=== PATIENT | female | born 1950 | race American Indian/Alaskan Native ===

== ENCOUNTER → 2017-12-03 | Day surgery (SDC) | payer MEDICARE ==
[~2017-12-03] MED LIST: HEPARIN-NS 5,000 UNITS/500 ML 10,000 UNIT/1,000 ML BAG IV ONE; HYDROmorphone 0.5 mg/0.5 ml ISec IVP PRN; Midazolam 2 MG/2 ML VIAL ONE; Neostigmine Methylsulfate 3mg/3ml Syringe IV ONE; Oxycodone/Acetaminophen 5/325 mg Tab PO PRN; Phenylephrine 10 mg/ml Inj ONE; Propofol 10 mg/ml Inj (20 ML) ONE; Succinylcholine Chloride 20 mg/ml Syr (5 ml) IV ONE; ceFAZolin IV 1 gm in Dextrose 2 GM/100 ML BAG IVPB ONE
[2017-12-03 10:17] LABS: CALCIUM 9.7 mg/dl (8.6-10.4)
--- NOTE | 2017-12-03 13:29 | RAD ---
Date of service: 12/03/2017 PROCEDURE: Intraoperative Fluoroscopy. HISTORY: RENAL FAILURE FINDINGS: Fluoroscopic assistance was provided. Fluoroscopy time = 11.7 sec. Radiation dose = 0.80122 mGy-cm. Please refer to the operative report from ROSSY Jerry.
--- NOTE | 2017-12-03 13:43 | PCM.SURG1 ---
Surgeon's Initial Post Op Note - Surgeon's Notes Surgeon: Joseph Corona MD Insulation Board Calender Operator: Brenda Velarde, PGY-2; Marquez OMS-3 Type of Anesthesia: General Endo Anesthesia Administered By: Dr. Driver Pre-Operative Diagnosis: ESRD requiring HD Operative Findings: See op report Post-Operative Diagnosis: ESRD requiring HD Operation Performed: RIJ permacath replacement, LUE AVF creation Specimen/Specimens Removed: Permacath Estimated Blood Loss: EBL {In ML}: 35 Blood Products Given: N/A Drains Used: No Drains Post-Op Condition: Good Date of Surgery/Procedure: 12/03/17 Time of Surgery/Procedure: 13:42
--- NOTE | 2017-12-03 14:03 | RAD ---
Date of service: 12/03/2017 HISTORY: post RIJ permacath replacement in pacu COMPARISON: 11/28/2017 FINDINGS: LUNGS: No active pulmonary disease. PLEURA: No significant pleural effusion identified, no pneumothorax apparent. CARDIOVASCULAR: Apparent cardiomegaly likely artifact due to portable technique. No congestive change. Tunneled right central venous dialysis catheter. OSSEOUS STRUCTURES: No significant abnormalities. VISUALIZED UPPER ABDOMEN: Normal. OTHER FINDINGS: None. IMPRESSION: No active disease.
[2017-12-03 15:11] VITALS: BP 110/70; PULSE 88; RESP 20; TEMP 97.9; O2SAT 95
--- NOTE | 2017-12-04 00:46 | OP ---
PROCEDURE DATE: 12/03/2017 PREOPERATIVE DIAGNOSIS: Renal failure. POSTOPERATIVE DIAGNOSIS: Renal failure. OPERATION CARRIED OUT: 1. Permacath right jugular vein with fluoroscopy. 2. Brachiocephalic fistula left elbow. SURGEON: Joseph Corona Jr., MD. CAFETERIA OPERATOR: Dr. Velarde. ANESTHESIOLOGIST: Dr. Driver. INDICATIONS: The patient is a 67-year-old woman with renal failure, presently dialyzed by means of right jugular vein catheter which is not working properly. OPERATIVE FINDINGS: 1. The previous catheter was replaced. It was filled with clot. 2. A fistula was created between the brachial artery and the cephalic vein at the elbow. It should be noted that this was actually a branch of the radial artery, as the main radial artery was somewhat deeper had been dissected out. 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 After this have been carried out successfully, then created an end-to-side fistula using loupe magnification and heparin anticoagulation. Blood loss for the both procedures were approximately 20 mL. The catheter was a tunneled catheter, it was secured to the skin and tunneled, originating on the right chest wall and through jugular vein and terminating in the superior vena cava. Joseph Corona Jr., MD cc: Sea Quintero MD.
== END | disposition home or self-care (01) ==
LOC: C.SDS 09:02
PROVIDERS: ATTEND Surgery Vascular Surgery
DX: I12.0 Hypertensive chronic kidney disease with stage 5 chronic kidney disease or end stage renal disease (principal); N18.6 End stage renal disease; E11.22 Type 2 diabetes mellitus with diabetic chronic kidney disease
CPT/HCPCS: 36415; 36558; 36821; 71045; 77001; 80048; J0690; J1644; J2001; J2250; J2370; J2704; J2710; J3010

== ENCOUNTER 2017-12-05 08:33 | Inpatient (IN) | payer MEDICARE ==
[2017-12-05] MEDS ORDERED: Cefepime 1 GM in Sodium Chloride 0.9% 50 ML IVPB ONE (09:14)
[2017-12-05] MEDS ORDERED: Morphine 4 MG/ML VIAL IV STA ×2 (09:37→10:58)
[2017-12-05 09:39] LABS: BASO % 0.3 % (0.0-2.0); EOS % 0.2 % (0.0-4.0); HEMOGLOBIN 9.7 g/dL (11.0-16.0); LYMPH # 1.8 K/uL (1.0-4.3); LYMPH % 12.9 % (20.0-40.0); MEAN CORPUSCULAR HEMOGLOBIN 27.4 pg (27.0-31.0); MEAN CORPUSCULAR HGB CONC 31.9 g/dL (33.0-37.0); MEAN PLATELET VOLUME 9.8 fL (7.2-11.7); MONO # 1.9 K/uL (0.0-0.8); MONO % 13.4 % (0.0-10.0); NEUT # 10.3 K/uL (1.8-7.0); NEUT % 73.2 % (50.0-75.0); RBC 3.52 Mil/uL (3.80-5.20); RED CELL DISTRIBUTION WIDTH 19.8 % (11.5-14.5)
[2017-12-05 09:40] LABS: VENOUS BLOOD GAS BASE EXCESS 6.6 mmol/L (0.0-2.0); VENOUS BLOOD GAS PCO2 47 mmHg (40-60); VENOUS BLOOD GAS PO2 29 mm/Hg (30-55); VENOUS BLOOD PH 7.44 (7.32-7.43)
[2017-12-05 09:46] LABS: MEAN CELL VOLUME 86.2 fL (81.0-99.0); WHITE BLOOD COUNT 14.1 K/uL (4.8-10.8)
[2017-12-05 09:48] LABS: INR 1.1; PROTHROMBIN TIME 12.5 SECONDS (9.7-12.2)
--- NOTE | 2017-12-05 09:54 | RAD ---
Chest x-ray single frontal view HISTORY: Shortness of breath. Comparison: 11/28/2017 Findings: Venous congestion. Patchy bibasilar airspace opacities. Small left and trace right pleural effusion. Right central venous catheter tip extending into the right atrium. Cardiomegaly. Enlarged ectatic aorta. Degenerative changes in the spine and shoulders. Impression: Venous congestion. Patchy bibasilar airspace opacities. Small left and trace right pleural effusion. Right central venous catheter tip extending into the right atrium. Cardiomegaly. Enlarged ectatic aorta. Degenerative changes in the spine and shoulders.
[2017-12-05 10:00] LABS: ALB/GLOB RATIO 1.1 (1.0-2.1); ALBUMIN 3.8 g/dL (3.5-5.0); CALCIUM 9.7 mg/dl (8.6-10.4)
--- NOTE | 2017-12-05 10:02 | C.PDOC ---
History Of Present Illness 67 y/o female, with PMHx of ESRD on hemodialysis (Tues, Th, Sat), presents to ED for evaluation of shortness of breath, fever, and right side chest wall pain. Last dialysis was yesterday. Denies cough, nausea, or vomiting. Time Seen by Provider: 12/05/17 08:51 Chief Complaint (Nursing): Shortness Of Breath History Per: Patient History/Exam Limitations: no limitations Past Medical History Reviewed: Historical Data, Nursing Documentation, Vital Signs Vital Signs: Last Vital Signs Temp 101.5 F H 12/05/17 08:56 Pulse 127 H 12/05/17 08:46 Resp 24 12/05/17 08:46 BP 147/80 12/05/17 08:46 Pulse Ox 97 12/05/17 08:46 - Medical History PMH: Arthritis, HTN, Hypercholesterolemia, End Stage Renal Disease, Chronic Kidney Disease Family History: States: Unknown Family Hx - Social History Hx Alcohol Use: No Hx Substance Use: No - Immunization History Hx Tetanus Toxoid Vaccination: Yes Hx Influenza Vaccination: Yes Hx Pneumococcal Vaccination: No Review Of Systems Except As Marked, All Systems Reviewed And Found Negative. Constitutional: Positive for: Fever Cardiovascular: Positive for: Chest Pain (chest wall). Negative for: Palpitations, Light Headedness Respiratory: Positive for: Shortness of Breath. Negative for: Cough, Sputum Gastrointestinal: Negative for: Nausea, Vomiting, Abdominal Pain Physical Exam - Physical Exam Appears: Non-toxic, No Acute Distress Skin: Normal Color, Warm, Dry Head: Atraumatic, Normacephalic Eye(s): bilateral: Normal Inspection Oral Mucosa: Moist Neck: Normal ROM, Supple Chest: Symmetrical, No Tenderness, Other (catheter to right anterior chest wall) Cardiovascular: Rhythm Regular, No Murmur Respiratory: No Accessory Muscle Use, Rales (bilateral bases), No Rhonchi, No Wheezing Gastrointestinal/Abdominal: Soft, No Tenderness Extremity: Normal ROM, Other (Left arm AV fistula) Neurological/Psych: Oriented x3, Normal Speech ED Course And Treatment - Laboratory Results Result Diagrams: 12/05/17 09:29 12/05/17 09:29 ECG: Interpreted By Me, Viewed By Me ECG Rhythm: Sinus Tachycardia Interpretation Of ECG: Normal intervals. Left axis deviation. Poor R wave progression. No ST/T wave abnormality. Rate From EC (bpm) O2 Sat by Pulse Oximetry: 97 (RA) Pulse Ox Interpretation: Normal Critical Care Time - Critical Care Note Total Time (in mins): 60 Documented critical care: time excludes all time spent performing seperately billable procedures. Medical Decision Making Medical Decision Making: Plan: Blood work EKG CXR Maxipime Vancomycin Morphine Case discussed Dr. Corona who agrees upon telemetry admission for shortness of breath and fever. Dr. Daly for consult Spoke with Dr. Hood who will evaluate pt at [facility]. Dr. Hood placed orders for patient. Disposition Discussed With : Manuel Fuentes Doctor Will See Patient In The: Hospital Counseled Patient/Family Regarding: Studies Performed, Diagnosis - Disposition Disposition: HOSPITALIZED Disposition Time: 10:02 Condition: FAIR - Clinical Impression Clinical Impression: SOB (shortness of breath), Fever - Scribe Statement The provider has reviewed the documentation as recorded by the Scribe KP All medical record entries made by the Scribe were at my direction and personally dictated by me. I have reviewed the chart and agree that the record accurately reflects my personal performance of the history, physical exam, medical decision making, and the department course for this patient. I have also personally directed, reviewed, and agree with the discharge instructions and disposition.
[2017-12-05 10:07] LABS: TROPONIN I 0.023 ng/mL (0.00-0.120)
[2017-12-05] MEDS ORDERED: Vancomycin 1 GM 1 GM/250 ML BAG IVPB ONE (10:40)
[2017-12-05] MEDS ORDERED: Glucagon Recombinant 1 mg Inj IM ONE (11:30)
[2017-12-05] MEDS ORDERED: Dextrose 50% SYRINGE Inj (50 ml) IV PRN (11:30)
--- NOTE | 2017-12-05 13:05 | CP.PCM.CON ---
History of Present Illness - History of Present Illness History of Present Illness: 67 y/o female, with PMHx of ESRD on hemodialysis (, , Fri), presents to ED for evaluation of shortness of breath, fever, and right side chest wall pain. Last dialysis was yesterday. Denies cough, nausea, or vomiting. CT chest shows bilat lower lobe infiltrates, Has right sided Tessio for HD and recent left arm AV Fistula wounds on lower extremities noted - Medical History PMH: Arthritis, HTN, Hypercholesterolemia, End Stage Renal Disease, Chronic Kidney Disease Family History: States: Unknown Family Hx Review of Systems - Review of Systems All systems: reviewed and no additional remarkable complaints except - Constitutional Constitutional: As Per HPI - EENT Eyes: absent: As Per HPI, Blind Spots, Blurred Vision, Change in Vision, Decreased Night Vision, Diplopia, Discharge, Dry Eye, Exophthalmos, Floaters, Irritation, Itchy Eyes, Loss of Peripheral Vision, Pain, Photophobia, Requires Corrective Lenses, Sees Flashes, Spots in Vision, Tunnel Vision, Other Visual Disturbances, Loss of Vision, Other Ears: absent: As Per HPI, Decreased Hearing, Ear Discharge, Ear Pain, Tinnitus, Abnormal Hearing, Disequilibrium, Dizziness, Other Nose/Mouth/Throat: absent: As Per HPI, Epistaxis, Nasal Congestion, Nasal Discharge, Nasal Obstruction, Nasal Trauma, Nose Pain, Post Nasal Drip, Sinus Pain, Sinus Pressure, Bleeding Gums, Change in Voice, Dental Pain, Dry Mouth, Dysphagia, Halitosis, Hoarsness, Lip Swelling, Mouth Lesions, Mouth Pain, Odynophagia, Sore Throat, Throat Swelling, Tongue Swelling, Facial Pain, Neck Pain, Neck Mass, Other - Breasts Breasts: absent: As Per HPI, Change in Shape, Mass, Pain, Nipple Discharge, Nipple Inversion, Skin Changes, Swelling, Other - Cardiovascular Cardiovascular: As Per HPI - Respiratory Respiratory: As Per HPI. absent: Cough, Hemoptysis - Gastrointestinal Gastrointestinal: absent: As Per HPI, Abdominal Pain, Belching, Bloating, Change in Bowel Habits, Change in Stool Character, Coffee Ground Emesis, Constipation, Cramping, Diarrhea, Dyspepsia, Dysphagia, Early Satiety, Excessive Flatus, Fecal Incontinence, Heartburn, Hematemesis, Hematochezia, Loose Stools, Melena, Nausea, Odynophagia, Temesmus, Vomiting, Other - Genitourinary Genitourinary: absent: As Per HPI, Change in Urinary Stream, Difficulty Urina ting, Dysuria, Flank Pain, Hematuria, Pyuria, Nocturia, Urinary Incontinence, Urinary Frequency, Urinary Hesitance, Urinary Urgency, Voiding Freq/Small Amts, Freq UTI, Hx Renal/Bladder Calculi, Hx /Renal Surgery, Bladder Distension, Other - Reproductive: Female Reproductive:Female: absent: As Per HPI, Amenorrhea, Amenorrhea/ Control, Currently Menstual, Cycle <21 Days, Cycle >35 Days, Cycle Variable, Menses 1-7 Days, Menses >/= 8 Days, Menses Variable, Cycle > 4 Weeks Between, No Menses for 6 Months, Heavy Menses, Light Menses, Normal Menses, Spotting Between Cycles, S/P Hysterectomy, Menopausal, Post Menopausal, Premenarche, Abnormal Vaginal Ble eding, Dysmenorrhea, Dyspareunia, Genital Lesions, Genital Pruritis, Pelvic Pain, Prolapse Symptoms, Sexual Dysfunction, Vaginal Discharge, Vaginal Dryness, Vaginal Odor, Vaginal Pruritis, Other - Menstruation Menstruation: absent: As Per HPI, Amenorrhea, Amenorrhea/ Control, Currently Menstual, Cycle <21 Days, Cycle >35 Days, Cycle Variable, Menses 1-7 Days, Menses >/= 8 Days, Menses Variable, Cycle > 4 Weeks Between, No Menses for 6 Months, Heavy Menses, Light Menses, Normal Menses, Spotting Between Cycles, S/P Hysterectomy, Menopausal, Post Menopausal, Premenarche, Abnormal Vaginal Bleeding, Dysmenorrhea, Other - Musculoskeletal Musculoskeletal: As Per HPI - Integumentary Integumentary: absent: As Per HPI, Acne, Alopecia, Bleeding Lesions, Change in Hair, Change in Nails, Change in Pigmentation, Changing Lesions, Dry Skin, Erythema, Furuncle, Hirsutism, Lesions, New Lesions, Non-Healing Lesions, Photosensitivity, Pruritus, Rash, Skin Pain, Skin Ulcer, Sores, Striae, Swelling, Unusual Bruising, Wounds, Jaundice, Other - Neurological Neurological: absent: As Per HPI, Abnormal Gait, Abnormal Hearing, Abnormal Movements, Abnormal Speech, Behavioral Changes, Burning Sensations, Confusion, Convulsions, Disequilibrium, Dizziness, Numbness, Focal Weakness, Frequent Falls, Headaches, Lack of Coordination, Loss of Vision, Memory Loss, Paresthesias, Radicular Pain, Restless Legs, Sensory Deficit, Syncope, Tingling, Tremor, Vertigo, Weakness, Other Visual Disturbances, Other - Psychiatric Psychiatric: absent: As Per HPI, Abnormal Sleep Pattern, Anhedonia, Anxiety, Auditory Hallucinations, Behavioral Changes, Change in Appetite, Change in Libido, Confusion, Depression, Difficulty Concentrating, Hallucinations, Homicidal Ideation, Hopelessness, Irritability, Memory Loss, Mood Swings, Panic Attacks, Paranoia, Suicidal Ideation, Visual Hallucinations, Tactile Hallucinations, Other - Endocrine Endocrine: As Per HPI - Hematologic/Lymphatic Hematologic: absent: As Per HPI, Easy Bleeding, Easy Bruising, Lymphadenopathy, Other Past Patient History - Infectious Disease Hx of Infectious Diseases: None - Past Medical History & Family History Past Medical History?: Yes - Past Social History Smoking Status: Former Smoker - CARDIAC Hx Cardiac Disorders: Yes Hx Hypercholesterolemia: Yes Hx Hypertension: Yes - PULMONARY Hx Respiratory Disorders: Yes Other/Comment: SOB ON EXERTION - NEUROLOGICAL Hx Neurological Disorder: No - HEENT Hx HEENT Problems: No - RENAL Hx Chronic Kidney Disease: Yes Hx Dialysis: Yes Type of Dialysis Access: Right chest permacath, left arm AV fistula Date of Last Dialysis Treatment: 12/04/17 Hx Renal Failure: Yes - ENDOCRINE/METABOLIC Hx Endocrine Disorders: Yes Hx Diabetes Mellitus Type 2: Yes - HEMATOLOGICAL/ONCOLOGICAL Hx Blood Disorders: No - INTEGUMENTARY Hx Dermatological Problems: Yes Other/Comment: HX: "SORES ON BOTH LOWER EXTREMITIES-ALMOST ALL HEALED WITH TX. FROM MD." - MUSCULOSKELETAL/RHEUMATOLOGICAL Hx Musculoskeletal Disorders: Yes Hx Arthritis: Yes Hx Falls: Yes Hx Gout: Yes - GASTROINTESTINAL Hx Gastrointestinal Disorders: No - GENITOURINARY/GYNECOLOGICAL Hx Genitourinary Disorders: No - PSYCHIATRIC Hx Psychophysiologic Disorder: No Hx Substance Use: No - SURGICAL HISTORY Hx Surgeries: Yes Hx Arteriovenous Shunt: Yes Hx Vascular Access Device: Yes (RIGHT CHEST PERMACATH) Other/Comment: HX: ENDOVENOUS LASER ABLATION OF LEFT LEG. RIGHT UA FISTULA - ANESTHESIA Hx Anesthesia: Yes Hx Anesthesia Reactions: No Hx Malignant Hyperthermia: No Has any member of the family had a problem w/ anesthesia?: No Meds Allergies/Adverse Reactions: Allergies Allergy/AdvReac Type Severity Reaction Status Date / Time No Known Allergies Allergy Verified 12/05/17 08:43 - Medications Medications: Current Medications Acetaminophen (Tylenol 325mg Tab) 650 mg PO Q6 PRN PRN Reason: Fever >100.4 F Allopurinol (Zyloprim) 100 mg PO DAILY [facility] Dextrose (Dextrose 50% Inj) 0 ml IV STAT PRN; Protocol PRN Reason: Hypoglycemia Protocol Dextrose (Glutose 15) 0 gm PO ONCE PRN; Protocol PRN Reason: Hypoglycemia Protocol Famotidine (Pepcid) 20 mg PO DAILY [facility] Gabapentin (Neurontin) 100 mg PO BID [facility] Home Med (Linagliptin [Tradjenta]) 5 mg PO DAILY [facility] Hydralazine HCl (Apresoline) 25 mg PO BID [facility] Cefepime HCl 1 gm/ Dextrose 50 mls @ 100 mls/hr IVPB Q12H JULES; Protocol Vancomycin/Sodium Chloride (Vancomycin 1 Gm/Ns 200 Ml) 1 gm in 200 mls @ 166.7 mls/hr IVPB TTS JULES; Protocol Stop: 12/11/17 10:01 Dextrose (Dextrose 5% In Water 1000 Ml) 1,000 mls @ 0 mls/hr IV .Q0M PRN; Protocol PRN Reason: Hypoglycemia Protocol Insulin Aspart (Novolog) 0 unit SC ACHS [facility]; Protocol Rosuvastatin Calcium (Crestor) 2.5 mg PO HS JULES Sevelamer Carbonate (Renvela) 2,400 mg PO TID [facility] Vitamin B Complex/Vit C/Folic Acid (Nephro-Padma) 1 tab PO DAILY [facility] Physical Exam - Constitutional Appears: Non-toxic, No Acute Distress, Chronically Ill - Head Exam Head Exam: ATRAUMATIC, NORMAL INSPECTION, NORMOCEPHALIC - Eye Exam Eye Exam: PERRL. absent: Scleral icterus - ENT Exam ENT Exam: Mucous Membranes Dry - Neck Exam Neck exam: Negative for: Lymphadenopathy - Respiratory Exam Respiratory Exam: Decreased Breath Sounds, Rhonchi - Cardiovascular Exam Cardiovascular Exam: REGULAR RHYTHM, +S1, +S2 - GI/Abdominal Exam GI & Abdominal Exam: Diminished Bowel Sounds, Distended, Soft. absent: Guarding, Organomegaly, Pulsatile Mass, Rebound, Rigid, Tenderness - Rectal Exam Rectal Exam: Deferred - Exam Exam: NORMAL INSPECTION - Extremities Exam Extremities exam: Positive for: pedal edema, pedal pulses present. Negative for: calf tenderness, tenderness - Back Exam Back exam: absent: CVA tenderness (L), CVA tenderness (R), paraspinal tenderness - Neurological Exam Neurological exam: Alert, CN II-XII Intact, Oriented x3, Reflexes Normal - Psychiatric Exam Psychiatric exam: Depressed - Skin Skin Exam: Dry Results - Vital Signs Recent Vital Signs: Last Vital Signs Temp 98.6 F 12/05/17 11:44 Pulse 118 H 12/05/17 11:44 Resp 22 12/05/17 11:44 BP 142/89 12/05/17 11:44 Pulse Ox 97 12/05/17 11:46 - Labs Result Diagrams: 12/05/17 09:29 12/05/17 09:29 Labs: Laboratory Results - last 24 hr 12/05/17 12/05/17 12/05/17 09:29 09:29 09:29 WBC 14.1 H D RBC 3.52 L Hgb 9.7 L Hct 30.3 L MCV 86.2 D MCH 27.4 MCHC 31.9 L RDW 19.8 H Plt Count 141 MPV 9.8 Neut % (Auto) 73.2 Lymph % (Auto) 12.9 L Harding % (Auto) 13.4 H Eos % (Auto) 0.2 Baso % (Auto) 0.3 Neut # (Auto) 10.3 H Lymph # (Auto) 1.8 Harding # (Auto) 1.9 H Eos # (Auto) 0.0 Baso # (Auto) 0.0 PT 12.5 H INR 1.1 APTT 35 H pO2 VBG pH VBG pCO2 VBG HCO3 VBG Total CO2 VBG O2 Sat (Calc) VBG Base Excess VBG Potassium Glucose Lactate Sodium 138 Potassium 4.0 Chloride 95 L Carbon Dioxide 31 H Anion Gap 16 BUN 19 H Creatinine 3.4 H Est GFR ( Amer) 16 Est GFR (Non-Af Amer) 13 POC Glucose (mg/dL) Random Glucose 152 H Calcium 9.7 Magnesium 2.0 Total Bilirubin 1.1 AST 30 ALT 38 Alkaline Phosphatase 137 H Troponin I 0.0230 NT-Pro-B Natriuret Pep 724 Total Protein 7.3 Albumin 3.8 Globulin 3.4 Albumin/Globulin Ratio 1.1 TSH 3rd Generation 2.24 Venous Blood Potassium 12/05/17 12/05/17 09:36 12:03 WBC RBC Hgb Hct MCV MCH MCHC RDW Plt Count MPV Neut % (Auto) Lymph % (Auto) Harding % (Auto) Eos % (Auto) Baso % (Auto) Neut # (Auto) Lymph # (Auto) Harding # (Auto) Eos # (Auto) Baso # (Auto) PT INR APTT pO2 29 L VBG pH 7.44 H VBG pCO2 47 VBG HCO3 29.0 VBG Total CO2 33.3 H VBG O2 Sat (Calc) 61.7 VBG Base Excess 6.6 H VBG Potassium 3.6 Glucose 147 H Lactate 1.3 Sodium 138.0 Potassium Chloride 103.0 Carbon Dioxide Anion Gap BUN Creatinine Est GFR ( Amer) Est GFR (Non-Af Amer) POC Glucose (mg/dL) 148 H Random Glucose Calcium Magnesium Total Bilirubin AST ALT Alkaline Phosphatase Troponin I NT-Pro-B Natriuret Pep Total Protein Albumin Globulin Albumin/Globulin Ratio TSH 3rd Generation Venous Blood Potassium 3.6 Assessment & Plan (1) End stage renal failure on dialysis Status: Acute (2) Chest pain Status: Acute (3) Pneumonia Status: Acute (4) Fever Status: Acute (5) SOB (shortness of breath) Status: Acute - Assessment and Plan (Free Text) Assessment: septic work up done- multiple sources including lines, skin, lung sputum and blood cultures pending iv antibiotics ordered empirically Pulm Vascular eval in progress
[2017-12-05] MEDS ORDERED: Iodixanol 320 MG/ML 100 ML BOTTLE IV ONE (13:09)
[2017-12-05] MEDS: (Novolog) Insulin Aspart, Recombinant 100 u/ml 10 ml vial SC SCH ×3 (13:21→21:34)
[2017-12-05] MEDS: Oxycodone/Acetaminophen 5/325 mg Tab PO PRN ×2 (14:07→18:22)
--- NOTE | 2017-12-05 14:51 | CT ---
Date of service: 12/05/17 CT chest with IV contrast Indication: Acute dyspnea and pleuritic pain, rule out PE Technique: Contiguous axial images were obtained through the chest with intravenous contrast enhancement. Sagittal and coronal reconstructions were generated and reviewed. This CT exam was performed using 1 or more of the following dose reduction techniques: Automated exposure control, adjustment of the MAA and/or kV according to patient size, and/or use of iterative reconstruction technique. IV contrast: 100 mL Visipaque 320 IV Radiation dose (DLP): 840.58 MGy-cm. Comparison: Chest x-ray 928 Findings: Right IJ approach dialysis catheter extends the right atrium. Visualized portions of the inferior thyroid gland appear unremarkable. The mediastinal and hilar vascular structures appear within normal limits. Dense coronary artery calcifications. Bilateral lower lobe infiltrates. No pleural effusion. No pneumothorax. 11 mm probable splenule. Remainder of the limited visualized abdomen appears. Degenerative change. Kyphosis. Impression: Bilateral lower lobe infiltrates. Cardiomegaly. Dense coronary artery calcifications. Right IJ approach dialysis catheter extends the right atrium.
--- NOTE | 2017-12-05 16:35 | CP.PCM.CON ---
History of Present Illness - History of Present Illness History of Present Illness: Nephrology Consultation Note: Assessment: critical sepsis with pneumonia acute pleuritic CP with dyspnoea r/o PE Diabetic chronic Kidney Disease (E11.22) Hypertensive Chronic Kidney Disease (I12.0) End stage renal disease (N18.6) dependence on hemodialysis (Z99.2) (TTS) via PC Anemia (D64.9), Hyperphosphatemia (E83.39), Secondary Hyperparathyroidism (E21.1), HTN (I12.0), obesity Plan: No acute need for dialysis today. Will plan for dialysis tomorrow. Continue with Nephrovite 1 tab/day. PRBC as needed for anemia. on JOHNATHAN with dialysis as last Hb 9.7 Continue with phos binders, check phos level BP control with meds as ordered. Patient not on RAAS cassie, may add if BP high Glycemic control, Dialysis consistent diet Further work up/management as per primary team Dose meds/antibiotics (if needed) for ESRD status. Avoid fleets enema/magnesium based laxatives. CTA ordered to r/o PE. ID following, pt started on IV abx Thanks for allowing me to participate in care of your patient. Will follow patient with you. Please call if any Qs. d/w ER team Dr Sea Quintero Office: [phone] Chief Complaint; chest pain HPI: Pt is a67 F with hx of ESRD on hemodialysis (TTS) via PC , last dialysis thur, chronic anemia, hyperphosphatemia, secondary hyperparathyroidism, Diabetes Mellitus, hypertension morbid obesity presented with complaints of Rt chest pain acute since last night which was moderate to severe. no trauma as per pt. also wit fever and SOB. recent PC exchange due to dysfxn and left AVF placed. Renal consult requested for ESRD management. pt feels sick with SOB, chest pain which is worse on deep breaths ROS: Cardiovascular: c/o chest pain. Pulmonary: c/o shortness of breath Gastrointestinal: denies abdominal pain No nausea. No vomiting. Genitourinary: No pain while urinating. Denies blood in urine. All other negative except as mentioned in HPI Physical Examination: General Appearance: uncomfortable, in no acute respiratory distress, co- operative . Vitals reviewed and noted as below Head; Atraumatic, normocephalic ENT: no ulcers no thrush. Tongue is midline. Oropharynx: no rash or ulcers. EYES: Pupils are equal, round and reactive to light accommodation. Eye muscles and extraocular movement intact. Sclera is anicteric. Neck; supple no lymphadenopathy, no thyromegaly or bruit Lungs: Increased respiratory rate/effort. Breath sounds bilateral decreased at bases with crackles Heart: Increased rate. s1s2 normal. No rub or gallop. Extremities: no edema. No varicose veins Neurological: Patient is alert, awake and oriented to person, place and time. No focal deficit. Strength bilateral appropriate and equal Skin: Warm and dry. Normal turgor. No rash. Palpitation: Normal elasticity for age Abdomen: Abdomen is soft. Bowel sounds +. There is no abdominal tenderness, no guarding/rigidity or organomegaly Psych: normal insight and normal affect/mood MSK: no joint tenderness or swelling. Digits and nails normal, no deformity : kidney or bladder not palpable Access: PC and left AVF maturing Labs/imaging reviewed. Past medical history, past surgical history, family history, social history, allergy reviewed and noted as below Family Hx: no hx of CKD. Non contributory Past Patient History - Infectious Disease Hx of Infectious Diseases: None - Past Medical History & Family History Past Medical History?: Yes - Past Social History Smoking Status: Former Smoker - CARDIAC Hx Cardiac Disorders: Yes Hx Hypercholesterolemia: Yes Hx Hypertension: Yes - PULMONARY Hx Respiratory Disorders: Yes Other/Comment: SOB ON EXERTION - NEUROLOGICAL Hx Neurological Disorder: No - HEENT Hx HEENT Problems: No - RENAL Hx Chronic Kidney Disease: Yes Hx Dialysis: Yes Type of Dialysis Access: Right chest permacath, left arm AV fistula Date of Last Dialysis Treatment: 12/04/17 Hx Renal Failure: Yes - ENDOCRINE/METABOLIC Hx Endocrine Disorders: Yes Hx Diabetes Mellitus Type 2: Yes - HEMATOLOGICAL/ONCOLOGICAL Hx Blood Disorders: No - INTEGUMENTARY Hx Dermatological Problems: Yes Other/Comment: HX: "SORES ON BOTH LOWER EXTREMITIES-ALMOST ALL HEALED WITH TX. FROM MD." - MUSCULOSKELETAL/RHEUMATOLOGICAL Hx Musculoskeletal Disorders: Yes Hx Arthritis: Yes Hx Falls: Yes Hx Gout: Yes - GASTROINTESTINAL Hx Gastrointestinal Disorders: No - GENITOURINARY/GYNECOLOGICAL Hx Genitourinary Disorders: No - PSYCHIATRIC Hx Psychophysiologic Disorder: No Hx Substance Use: No - SURGICAL HISTORY Hx Surgeries: Yes Hx Arteriovenous Shunt: Yes Hx Vascular Access Device: Yes (RIGHT CHEST PERMACATH) Other/Comment: HX: ENDOVENOUS LASER ABLATION OF LEFT LEG. RIGHT UA FISTULA - ANESTHESIA Hx Anesthesia: Yes Hx Anesthesia Reactions: No Hx Malignant Hyperthermia: No Has any member of the family had a problem w/ anesthesia?: No Meds Allergies/Adverse Reactions: Allergies Allergy/AdvReac Type Severity Reaction Status Date / Time No Known Allergies Allergy Verified 12/05/17 08:43 - Medications Medications: Current Medications Acetaminophen (Tylenol 325mg Tab) 650 mg PO Q6 PRN PRN Reason: Fever >100.4 F Allopurinol (Zyloprim) 100 mg PO DAILY [facility] Dextrose (Dextrose 50% Inj) 0 ml IV STAT PRN; Protocol PRN Reason: Hypoglycemia Protocol Dextrose (Glutose 15) 0 gm PO ONCE PRN; Protocol PRN Reason: Hypoglycemia Protocol Famotidine (Pepcid) 20 mg PO DAILY [facility] Last Admin: 12/05/17 13:22 Dose: 20 mg Gabapentin (Neurontin) 100 mg PO BID [facility] Home Med (Linagliptin [Tradjenta]) 5 mg PO DAILY [facility] Hydralazine HCl (Apresoline) 25 mg PO BID [facility] Cefepime HCl 1 gm/ Dextrose 50 mls @ 100 mls/hr IVPB Q12H JULES; Protocol Last Admin: 12/05/17 13:09 Dose: Not Given Vancomycin/Sodium Chloride (Vancomycin 1 Gm/Ns 200 Ml) 1 gm in 200 mls @ 166.7 mls/hr IVPB TTS [facility]; Protocol Stop: 12/11/17 10:01 Dextrose (Dextrose 5% In Water 1000 Ml) 1,000 mls @ 0 mls/hr IV .Q0M PRN; Protocol PRN Reason: Hypoglycemia Protocol Insulin Aspart (Novolog) 0 unit SC ACHS [facility]; Protocol Last Admin: 12/05/17 16:22 Dose: Not Given Oxycodone/Acetaminophen (Percocet 5/325 Mg Tab) 2 tab PO Q4H PRN PRN Reason: Pain, moderate (4-7) Stop: 12/08/17 13:14 Last Admin: 12/05/17 14:07 Dose: 2 tab Rosuvastatin Calcium (Crestor) 2.5 mg PO HS [facility] Sevelamer Carbonate (Renvela) 2,400 mg PO TID [facility] Last Admin: 12/05/17 14:06 Dose: 2,400 mg Vitamin B Complex/Vit C/Folic Acid (Nephro-Padma) 1 tab PO DAILY JULES Results - Vital Signs Recent Vital Signs: Last Vital Signs Temp 98.2 F 12/05/17 15:58 Pulse 104 H 12/05/17 15:58 Resp 20 12/05/17 15:58 BP 139/69 12/05/17 15:58 Pulse Ox 95 12/05/17 15:58 - Labs Result Diagrams: 12/05/17 09:29 12/05/17 09:29 Labs: Laboratory Results - last 24 hr 12/05/17 12/05/17 12/05/17 09:29 09:29 09:29 WBC 14.1 H D RBC 3.52 L Hgb 9.7 L Hct 30.3 L MCV 86.2 D MCH 27.4 MCHC 31.9 L RDW 19.8 H Plt Count 141 MPV 9.8 Neut % (Auto) 73.2 Lymph % (Auto) 12.9 L Bond % (Auto) 13.4 H Eos % (Auto) 0.2 Baso % (Auto) 0.3 Neut # (Auto) 10.3 H Lymph # (Auto) 1.8 Bond # (Auto) 1.9 H Eos # (Auto) 0.0 Baso # (Auto) 0.0 PT 12.5 H INR 1.1 APTT 35 H pO2 VBG pH VBG pCO2 VBG HCO3 VBG Total CO2 VBG O2 Sat (Calc) VBG Base Excess VBG Potassium Glucose Lactate Sodium 138 Potassium 4.0 Chloride 95 L Carbon Dioxide 31 H Anion Gap 16 BUN 19 H Creatinine 3.4 H Est GFR ( Amer) 16 Est GFR (Non-Af Amer) 13 POC Glucose (mg/dL) Random Glucose 152 H Calcium 9.7 Magnesium 2.0 Total Bilirubin 1.1 AST 30 ALT 38 Alkaline Phosphatase 137 H Troponin I 0.0230 NT-Pro-B Natriuret Pep 724 Total Protein 7.3 Albumin 3.8 Globulin 3.4 Albumin/Globulin Ratio 1.1 TSH 3rd Generation 2.24 Venous Blood Potassium 12/05/17 12/05/17 12/05/17 09:36 12:03 16:09 WBC RBC Hgb Hct MCV MCH MCHC RDW Plt Count MPV Neut % (Auto) Lymph % (Auto) Bond % (Auto) Eos % (Auto) Baso % (Auto) Neut # (Auto) Lymph # (Auto) Bond # (Auto) Eos # (Auto) Baso # (Auto) PT INR APTT pO2 29 L VBG pH 7.44 H VBG pCO2 47 VBG HCO3 29.0 VBG Total CO2 33.3 H VBG O2 Sat (Calc) 61.7 VBG Base Excess 6.6 H VBG Potassium 3.6 Glucose 147 H Lactate 1.3 Sodium 138.0 Potassium Chloride 103.0 Carbon Dioxide Anion Gap BUN Creatinine Est GFR ( Amer) Est GFR (Non-Af Amer) POC Glucose (mg/dL) 148 H 110 Random Glucose Calcium Magnesium Total Bilirubin AST ALT Alkaline Phosphatase Troponin I NT-Pro-B Natriuret Pep Total Protein Albumin Globulin Albumin/Globulin Ratio TSH 3rd Generation Venous Blood Potassium 3.6
--- NOTE | 2017-12-05 16:45 | CP.PCM.CON ---
History of Present Illness - History of Present Illness History of Present Illness: General surgery consult note for Dr. Corona - Brenda Velarde PGY-2. Pt S & E at bedside at 1625. 67 y/o F with PMH sig for ESRD consulted for fever with indwelling catheter. Pt is s/p RIJ permacath replacement and LUE AVF creation (12/03/[address] Corona) admitted to hospital w/ SOB, right sided rib/flank pain (worse w/ inspiration), and dizziness s/p HD yesterday. In ED pt found to be febrile tmax 101.4, resolved with acetominophen, currently afebrile. As per pt, right sided pain began yesterday after dialysis treatment, currently describes it as a stabbing pain with intensity of 9/10, denies any radiation. Admits to generalized weakness, decreased appetite, SOB when pain occurs. Denies N & V, changes in bowel or bladder habits, chest pain, SOB, cough, chills. PMH: ESRD on HD (MWF), HTN, HLD, arthritis, gout PSH: Left knee arthroscopy (Oct 2017) Allergies: NKDA Social: former smoker; denies alcohol or illicit drug use Review of Systems - Review of Systems All systems: reviewed and no additional remarkable complaints except - Constitutional Constitutional: Fever, Weakness. absent: Chills, Headache - Cardiovascular Cardiovascular: Leg Edema. absent: Chest Pain - Respiratory Respiratory: absent: Cough - Gastrointestinal Gastrointestinal: absent: Change in Bowel Habits, Nausea, Vomiting - Genitourinary Genitourinary: absent: Change in Urinary Stream - Musculoskeletal Musculoskeletal: Back Pain (chronic) - Integumentary Integumentary: absent: Rash - Neurological Neurological: Weakness - Psychiatric Psychiatric: Change in Appetite (decrease) Past Patient History - Infectious Disease Hx of Infectious Diseases: None - Past Medical History & Family History Past Medical History?: Yes - Past Social History Smoking Status: Former Smoker - CARDIAC Hx Cardiac Disorders: Yes Hx Hypercholesterolemia: Yes Hx Hypertension: Yes - PULMONARY Hx Respiratory Disorders: Yes Other/Comment: SOB ON EXERTION - NEUROLOGICAL Hx Neurological Disorder: No - HEENT Hx HEENT Problems: No - RENAL Hx Chronic Kidney Disease: Yes Hx Dialysis: Yes Type of Dialysis Access: Right chest permacath, left arm AV fistula Date of Last Dialysis Treatment: 12/04/17 Hx Renal Failure: Yes - ENDOCRINE/METABOLIC Hx Endocrine Disorders: Yes Hx Diabetes Mellitus Type 2: Yes - HEMATOLOGICAL/ONCOLOGICAL Hx Blood Disorders: No - INTEGUMENTARY Hx Dermatological Problems: Yes Other/Comment: HX: "SORES ON BOTH LOWER EXTREMITIES-ALMOST ALL HEALED WITH TX. FROM MD." - MUSCULOSKELETAL/RHEUMATOLOGICAL Hx Musculoskeletal Disorders: Yes Hx Arthritis: Yes Hx Falls: Yes Hx Gout: Yes - GASTROINTESTINAL Hx Gastrointestinal Disorders: No - GENITOURINARY/GYNECOLOGICAL Hx Genitourinary Disorders: No - PSYCHIATRIC Hx Psychophysiologic Disorder: No Hx Substance Use: No - SURGICAL HISTORY Hx Surgeries: Yes Hx Arteriovenous Shunt: Yes Hx Vascular Access Device: Yes (RIGHT CHEST PERMACATH) Other/Comment: HX: ENDOVENOUS LASER ABLATION OF LEFT LEG. RIGHT UA FISTULA - ANESTHESIA Hx Anesthesia: Yes Hx Anesthesia Reactions: No Hx Malignant Hyperthermia: No Has any member of the family had a problem w/ anesthesia?: No Meds Allergies/Adverse Reactions: Allergies Allergy/AdvReac Type Severity Reaction Status Date / Time No Known Allergies Allergy Verified 12/05/17 08:43 - Medications Medications: Current Medications Acetaminophen (Tylenol 325mg Tab) 650 mg PO Q6 PRN PRN Reason: Fever >100.4 F Allopurinol (Zyloprim) 100 mg PO DAILY [facility] Dextrose (Dextrose 50% Inj) 0 ml IV STAT PRN; Protocol PRN Reason: Hypoglycemia Protocol Dextrose (Glutose 15) 0 gm PO ONCE PRN; Protocol PRN Reason: Hypoglycemia Protocol Epoetin Mario Alberto (Procrit) 4,000 unit IV TTS [facility] Famotidine (Pepcid) 20 mg PO DAILY [facility] Last Admin: 12/05/17 13:22 Dose: 20 mg Gabapentin (Neurontin) 100 mg PO BID [facility] Heparin Sodium (Porcine) (Heparin) 2,000 units IVP TTS [facility] Home Med (Linagliptin [Tradjenta]) 5 mg PO DAILY [facility] Hydralazine HCl (Apresoline) 25 mg PO BID [facility] Cefepime HCl 1 gm/ Dextrose 50 mls @ 100 mls/hr IVPB Q12H [facility]; Protocol Last Admin: 12/05/17 13:09 Dose: Not Given Vancomycin/Sodium Chloride (Vancomycin 1 Gm/Ns 200 Ml) 1 gm in 200 mls @ 166.7 mls/hr IVPB TTS [facility]; Protocol Stop: 12/11/17 10:01 Dextrose (Dextrose 5% In Water 1000 Ml) 1,000 mls @ 0 mls/hr IV .Q0M PRN; Protocol PRN Reason: Hypoglycemia Protocol Insulin Aspart (Novolog) 0 unit SC ACHS [facility]; Protocol Last Admin: 12/05/17 16:22 Dose: Not Given Oxycodone/Acetaminophen (Percocet 5/325 Mg Tab) 2 tab PO Q4H PRN PRN Reason: Pain, moderate (4-7) Stop: 12/08/17 13:14 Last Admin: 12/05/17 14:07 Dose: 2 tab Rosuvastatin Calcium (Crestor) 2.5 mg PO HS JULES Sevelamer Carbonate (Renvela) 2,400 mg PO TID [facility] Last Admin: 12/05/17 14:06 Dose: 2,400 mg Vitamin B Complex/Vit C/Folic Acid (Nephro-Padma) 1 tab PO DAILY [facility] Physical Exam - Constitutional Appears: In Acute Distress - Head Exam Head Exam: ATRAUMATIC, NORMAL INSPECTION, NORMOCEPHALIC - Eye Exam Eye Exam: EOMI, Normal appearance - ENT Exam ENT Exam: Mucous Membranes Dry - Neck Exam Additional comments: R neck with dressing in place moderate amount of sanguinous strike through - Respiratory Exam Respiratory Exam: NORMAL BREATHING PATTERN. absent: Accessory Muscle Use - Cardiovascular Exam Cardiovascular Exam: REGULAR RHYTHM, +S1, +S2 - GI/Abdominal Exam GI & Abdominal Exam: Normal Bowel Sounds, Tenderness - Extremities Exam Extremities exam: Positive for: pedal edema Additional comments: LE swelling (non pitting) b/l LUE dressing in place over AVF clean, dry, intact with palpable thrill and palpable radial pulse - Back Exam Back exam: NORMAL INSPECTION, tenderness (right mid flank, no palpable mass ) - Neurological Exam Neurological exam: Alert, CN II-XII Intact, Oriented x3 - Psychiatric Exam Psychiatric exam: Normal Affect, Normal Mood - Skin Skin Exam: Dry, Intact, Normal Color, Warm - Additional Findings Additional findings: incision sites were clean, dry and intact Results - Vital Signs Recent Vital Signs: Last Vital Signs Temp 98.2 F 12/05/17 15:58 Pulse 104 H 12/05/17 15:58 Resp 20 12/05/17 15:58 BP 139/69 12/05/17 15:58 Pulse Ox 95 12/05/17 15:58 - Labs Result Diagrams: 12/05/17 09:29 12/05/17 09:29 Labs: Laboratory Results - last 24 hr 12/05/17 12/05/17 12/05/17 09:29 09:29 09:29 WBC 14.1 H D RBC 3.52 L Hgb 9.7 L Hct 30.3 L MCV 86.2 D MCH 27.4 MCHC 31.9 L RDW 19.8 H Plt Count 141 MPV 9.8 Neut % (Auto) 73.2 Lymph % (Auto) 12.9 L [place] % (Auto) 13.4 H Eos % (Auto) 0.2 Baso % (Auto) 0.3 Neut # (Auto) 10.3 H Lymph # (Auto) 1.8 [place] # (Auto) 1.9 H Eos # (Auto) 0.0 Baso # (Auto) 0.0 PT 12.5 H INR 1.1 APTT 35 H pO2 VBG pH VBG pCO2 VBG HCO3 VBG Total CO2 VBG O2 Sat (Calc) VBG Base Excess VBG Potassium Glucose Lactate Sodium 138 Potassium 4.0 Chloride 95 L Carbon Dioxide 31 H Anion Gap 16 BUN 19 H Creatinine 3.4 H Est GFR ( Amer) 16 Est GFR (Non-Af Amer) 13 POC Glucose (mg/dL) Random Glucose 152 H Calcium 9.7 Magnesium 2.0 Total Bilirubin 1.1 AST 30 ALT 38 Alkaline Phosphatase 137 H Troponin I 0.0230 NT-Pro-B Natriuret Pep 724 Total Protein 7.3 Albumin 3.8 Globulin 3.4 Albumin/Globulin Ratio 1.1 TSH 3rd Generation 2.24 Venous Blood Potassium 12/05/17 12/05/17 12/05/17 09:36 12:03 16:09 WBC RBC Hgb Hct MCV MCH MCHC RDW Plt Count MPV Neut % (Auto) Lymph % (Auto) [place] % (Auto) Eos % (Auto) Baso % (Auto) Neut # (Auto) Lymph # (Auto) [place] # (Auto) Eos # (Auto) Baso # (Auto) PT INR APTT pO2 29 L VBG pH 7.44 H VBG pCO2 47 VBG HCO3 29.0 VBG Total CO2 33.3 H VBG O2 Sat (Calc) 61.7 VBG Base Excess 6.6 H VBG Potassium 3.6 Glucose 147 H Lactate 1.3 Sodium 138.0 Potassium Chloride 103.0 Carbon Dioxide Anion Gap BUN Creatinine Est GFR ( Amer) Est GFR (Non-Af Amer) POC Glucose (mg/dL) 148 H 110 Random Glucose Calcium Magnesium Total Bilirubin AST ALT Alkaline Phosphatase Troponin I NT-Pro-B Natriuret Pep Total Protein Albumin Globulin Albumin/Globulin Ratio TSH 3rd Generation Venous Blood Potassium 3.6 Assessment & Plan - Assessment and Plan (Free Text) Assessment: 67 y/o F with fevers s/p recent RIJ catheter exchange Plan: No surgical intervention at this time Further recs pending blood culture findings DW Dr. Cj Velarde PGY-2 - Date & Time Date: 12/05/17 Time: 17:10
--- NOTE | 2017-12-05 20:39 | CARD ---
APPROVED REPORT Date of service: 12/05/2017 EKG Measurement Heart [id number] <Conclusion> Sinus tachycardia Voltage criteria for left ventricular hypertrophy Inferior infarct, age undetermined Abnormal ECG
[2017-12-05] MEDS: Rosuvastatin Calcium 2.5 mg Tab PO SCH (21:41)
--- NOTE | 2017-12-05 21:50 | CP.PCM.HP ---
Present on Admission - Present on Admission Any Indicators Present on Admission: No Past Patient History - Infectious Disease Hx of Infectious Diseases: None - Past Medical History & Family History Past Medical History?: Yes - Past Social History Smoking Status: Former Smoker - CARDIAC Hx Cardiac Disorders: Yes Hx Hypercholesterolemia: Yes Hx Hypertension: Yes - PULMONARY Hx Respiratory Disorders: Yes Other/Comment: SOB ON EXERTION - NEUROLOGICAL Hx Neurological Disorder: No - HEENT Hx HEENT Problems: No - RENAL Hx Chronic Kidney Disease: Yes Hx Dialysis: Yes Type of Dialysis Access: Right chest permacath, left arm AV fistula Date of Last Dialysis Treatment: 12/04/17 Hx Renal Failure: Yes - ENDOCRINE/METABOLIC Hx Endocrine Disorders: Yes Hx Diabetes Mellitus Type 2: Yes - HEMATOLOGICAL/ONCOLOGICAL Hx Blood Disorders: No - INTEGUMENTARY Hx Dermatological Problems: Yes Other/Comment: HX: "SORES ON BOTH LOWER EXTREMITIES-ALMOST ALL HEALED WITH TX. FROM MD." - MUSCULOSKELETAL/RHEUMATOLOGICAL Hx Musculoskeletal Disorders: Yes Hx Arthritis: Yes Hx Falls: Yes Hx Gout: Yes - GASTROINTESTINAL Hx Gastrointestinal Disorders: No - GENITOURINARY/GYNECOLOGICAL Hx Genitourinary Disorders: No - PSYCHIATRIC Hx Psychophysiologic Disorder: No Hx Substance Use: No - SURGICAL HISTORY Hx Surgeries: Yes Hx Arteriovenous Shunt: Yes Hx Vascular Access Device: Yes (RIGHT CHEST PERMACATH) Other/Comment: HX: ENDOVENOUS LASER ABLATION OF LEFT LEG. RIGHT UA FISTULA - ANESTHESIA Hx Anesthesia: Yes Hx Anesthesia Reactions: No Hx Malignant Hyperthermia: No Has any member of the family had a problem w/ anesthesia?: No Meds Allergies/Adverse Reactions: Allergies Allergy/AdvReac Type Severity Reaction Status Date / Time No Known Allergies Allergy Verified 12/05/17 08:43 Results - Vital Signs Recent Vital Signs: Last Vital Signs Temp 98.2 F 12/05/17 15:58 Pulse 102 H 12/05/17 17:00 Resp 20 12/05/17 15:58 BP 139/69 12/05/17 15:58 Pulse Ox 95 12/05/17 15:58 - Labs Result Diagrams: 12/08/17 17:24 12/08/17 17:24 Labs: Laboratory Results - last 24 hr 12/05/17 12/05/17 12/05/17 09:29 09:29 09:29 WBC 14.1 H D RBC 3.52 L Hgb 9.7 L Hct 30.3 L MCV 86.2 D MCH 27.4 MCHC 31.9 L RDW 19.8 H Plt Count 141 MPV 9.8 Neut % (Auto) 73.2 Lymph % (Auto) 12.9 L Rich % (Auto) 13.4 H Eos % (Auto) 0.2 Baso % (Auto) 0.3 Neut # (Auto) 10.3 H Lymph # (Auto) 1.8 Rich # (Auto) 1.9 H Eos # (Auto) 0.0 Baso # (Auto) 0.0 PT 12.5 H INR 1.1 APTT 35 H pO2 VBG pH VBG pCO2 VBG HCO3 VBG Total CO2 VBG O2 Sat (Calc) VBG Base Excess VBG Potassium Glucose Lactate Sodium 138 Potassium 4.0 Chloride 95 L Carbon Dioxide 31 H Anion Gap 16 BUN 19 H Creatinine 3.4 H Est GFR ( Amer) 16 Est GFR (Non-Af Amer) 13 POC Glucose (mg/dL) Random Glucose 152 H Calcium 9.7 Magnesium 2.0 Total Bilirubin 1.1 AST 30 ALT 38 Alkaline Phosphatase 137 H Troponin I 0.0230 NT-Pro-B Natriuret Pep 724 Total Protein 7.3 Albumin 3.8 Globulin 3.4 Albumin/Globulin Ratio 1.1 TSH 3rd Generation 2.24 Venous Blood Potassium 12/05/17 12/05/17 12/05/17 09:36 12:03 16:09 WBC RBC Hgb Hct MCV MCH MCHC RDW Plt Count MPV Neut % (Auto) Lymph % (Auto) Rich % (Auto) Eos % (Auto) Baso % (Auto) Neut # (Auto) Lymph # (Auto) Rich # (Auto) Eos # (Auto) Baso # (Auto) PT INR APTT pO2 29 L VBG pH 7.44 H VBG pCO2 47 VBG HCO3 29.0 VBG Total CO2 33.3 H VBG O2 Sat (Calc) 61.7 VBG Base Excess 6.6 H VBG Potassium 3.6 Glucose 147 H Lactate 1.3 Sodium 138.0 Potassium Chloride 103.0 Carbon Dioxide Anion Gap BUN Creatinine Est GFR ( Amer) Est GFR (Non-Af Amer) POC Glucose (mg/dL) 148 H 110 Random Glucose Calcium Magnesium Total Bilirubin AST ALT Alkaline Phosphatase Troponin I NT-Pro-B Natriuret Pep Total Protein Albumin Globulin Albumin/Globulin Ratio TSH 3rd Generation Venous Blood Potassium 3.6 12/05/17 21:22 WBC RBC Hgb Hct MCV MCH MCHC RDW Plt Count MPV Neut % (Auto) Lymph % (Auto) Rich % (Auto) Eos % (Auto) Baso % (Auto) Neut # (Auto) Lymph # (Auto) Rich # (Auto) Eos # (Auto) Baso # (Auto) PT INR APTT pO2 VBG pH VBG pCO2 VBG HCO3 VBG Total CO2 VBG O2 Sat (Calc) VBG Base Excess VBG Potassium Glucose Lactate Sodium Potassium Chloride Carbon Dioxide Anion Gap BUN Creatinine Est GFR ( Amer) Est GFR (Non-Af Amer) POC Glucose (mg/dL) 134 H Random Glucose Calcium Magnesium Total Bilirubin AST ALT Alkaline Phosphatase Troponin I NT-Pro-B Natriuret Pep Total Protein Albumin Globulin Albumin/Globulin Ratio TSH 3rd Generation Venous Blood Potassium
[2017-12-06] MEDS: (Novolog) Insulin Aspart, Recombinant 100 u/ml 10 ml vial SC SCH ×3 (07:42→22:25)
[2017-12-06] MEDS: Lidocaine 5% Patch TD SCH ×2 (08:16→10:07)
[2017-12-06] MEDS ORDERED: EPOETIN ALFA 4,000 UNIT/ML ML Dialysis IV SCH (10:00)
[2017-12-06] MEDS ORDERED: Home Med 1 UNIT (Linagliptin [Tradjenta] 5 MG) PO SCH (10:00)
[2017-12-06] MEDS: Multivitamin Vitamin B Complex (Nephro-Vite) Tab PO SCH (10:08)
--- NOTE | 2017-12-06 10:13 | CP.PCM.PN ---
Subjective - Date & Time of Evaluation Date of Evaluation: 12/06/17 Time of Evaluation: 10:12 - Subjective Subjective: Nephrology Consultation Note: Assessment: stable sepsis with pneumonia acute pleuritic CP with dyspnoea r/o PE Diabetic chronic Kidney Disease (E11.22) Hypertensive Chronic Kidney Disease (I12.0) End stage renal disease (N18.6) dependence on hemodialysis (Z99.2) (TTS) via PC Anemia (D64.9), Hyperphosphatemia (E83.39), Secondary Hyperparathyroidism (E21.1), HTN (I12.0), obesity Plan: Will plan for dialysis today. Continue with Nephrovite 1 tab/day. PRBC as needed for anemia. on JOHNATHAN with dialysis as last Hb 9.7 Continue with phos binders, check phos level BP control with meds as ordered. Patient not on RAAS cassie, may add if BP high Glycemic control, Dialysis consistent diet Further work up/management as per primary team Dose meds/antibiotics (if needed) for ESRD status. Avoid fleets enema/magnesium based laxatives. ID following, pt started on IV abx Thanks for allowing me to participate in care of your patient. Will follow patient with you. Please call if any Qs. d/w ER team Dr Sea Quintero Office: [phone] Chief Complaint; chest pain HPI: Pt is a67 F with hx of ESRD on hemodialysis (TTS) via PC , last dialysis thur, chronic anemia, hyperphosphatemia, secondary hyperparathyroidism, Diabetes Mellitus, hypertension morbid obesity presented with complaints of Rt chest pain acute since last night which was moderate to severe. no trauma as per pt. also wit fever and SOB. recent PC exchange due to dysfxn and left AVF placed. Renal consult requested for ESRD management. pt feels sick with SOB, chest pain which is worse on deep breaths ROS: Cardiovascular: c/o chest pain. Pulmonary: c/o shortness of breath Gastrointestinal: denies abdominal pain No nausea. No vomiting. Genitourinary: No pain while urinating. Denies blood in urine. All other negative except as mentioned in HPI Physical Examination: seen on HD General Appearance: uncomfortable, in no acute respiratory distress, co- operative . Vitals reviewed and noted as below Head; Atraumatic, normocephalic ENT: no ulcers no thrush. Tongue is midline. Oropharynx: no rash or ulcers. EYES: Pupils are equal, round and reactive to light accommodation. Eye muscles and extraocular movement intact. Sclera is anicteric. Neck; supple no lymphadenopathy, no thyromegaly or bruit Lungs: Improved respiratory rate/effort. Breath sounds bilateral decreased at bases with crackles Heart: Increased rate. s1s2 normal. No rub or gallop. Extremities: no edema. No varicose veins Neurological: Patient is alert, awake and oriented to person, place and time. No focal deficit. Strength bilateral appropriate and equal Skin: Warm and dry. Normal turgor. No rash. Palpitation: Normal elasticity for age Abdomen: Abdomen is soft. Bowel sounds +. There is no abdominal tenderness, no guarding/rigidity or organomegaly Psych: normal insight and normal affect/mood MSK: no joint tenderness or swelling. Digits and nails normal, no deformity : kidney or bladder not palpable Access: PC and left AVF maturing Labs/imaging reviewed. Past medical history, past surgical history, family history, social history, allergy reviewed and noted as below Family Hx: no hx of CKD. Non contributory Objective - Vital Signs/Intake and Output Vital Signs (last 24 hours): Temp Pulse Resp BP Pulse Ox 98.3 F 114 H 18 164/95 H 96 12/06/17 07:15 12/06/17 08:35 12/06/17 07:15 12/06/17 07:15 12/06/17 07:15 - Medications Medications: Current Medications Acetaminophen (Tylenol 325mg Tab) 650 mg PO Q6 PRN PRN Reason: Fever >100.4 F Last Admin: 12/06/17 03:00 Dose: 650 mg Allopurinol (Zyloprim) 100 mg PO DAILY [facility] Clonazepam (Klonopin) 0.5 mg PO BID PRN PRN Reason: Anxiety Last Admin: 12/06/17 08:04 Dose: 0.5 mg Dextrose (Dextrose 50% Inj) 0 ml IV STAT PRN; Protocol PRN Reason: Hypoglycemia Protocol Dextrose (Glutose 15) 0 gm PO ONCE PRN; Protocol PRN Reason: Hypoglycemia Protocol Epoetin Mario Alberto (Procrit) 4,000 unit IV TTS [facility] Famotidine (Pepcid) 20 mg PO DAILY [facility] Last Admin: 12/06/17 10:08 Dose: Not Given Gabapentin (Neurontin) 100 mg PO BID [facility] Last Admin: 12/06/17 10:08 Dose: Not Given Heparin Sodium (Porcine) (Heparin) 2,000 units IVP TTS [facility] Heparin Sodium (Porcine) (Heparin) 5,000 units SC Q12 [facility] Last Admin: 12/06/17 10:07 Dose: Not Given Hydralazine HCl (Apresoline) 25 mg PO BID [facility] Last Admin: 12/06/17 10:06 Dose: Not Given Cefepime HCl 1 gm/ Dextrose 50 mls @ 100 mls/hr IVPB Q12H [facility]; Protocol Last Admin: 12/06/17 10:09 Dose: Not Given Vancomycin/Sodium Chloride (Vancomycin 1 Gm/Ns 200 Ml) 1 gm in 200 mls @ 166.7 mls/hr IVPB TTS [facility]; Protocol Stop: 12/11/17 10:01 Dextrose (Dextrose 5% In Water 1000 Ml) 1,000 mls @ 0 mls/hr IV .Q0M PRN; Protocol PRN Reason: Hypoglycemia Protocol Insulin Aspart (Novolog) 0 unit SC ACHS [facility]; Protocol Last Admin: 12/06/17 07:42 Dose: Not Given Lidocaine (Lidoderm) 1 ea TD DAILY [facility] Last Admin: 12/06/17 10:07 Dose: Not Given Morphine Sulfate (Morphine) 2 mg IVP Q4H PRN PRN Reason: Pain, moderate (4-7) Last Admin: 12/06/17 07:50 Dose: 2 mg Rosuvastatin Calcium (Crestor) 2.5 mg PO HS [facility] Last Admin: 12/05/17 21:41 Dose: 2.5 mg Sevelamer Carbonate (Renvela) 2,400 mg PO TID [facility] Last Admin: 12/06/17 10:08 Dose: Not Given Vitamin B Complex/Vit C/Folic Acid (Nephro-Padma) 1 tab PO DAILY [facility] Last Admin: 12/06/17 10:08 Dose: Not Given - Labs Labs: 12/05/17 09:29 12/05/17 09:29 PT 12.5 SECONDS (9.7-12.2) H 12/05/17 09:29 INR 1.1 12/05/17 09:29 APTT 35 SECONDS (21-34) H 12/05/17 09:29
[2017-12-06] MEDS: Vancomycin 1 gm/NS 200 ml 1 GM/200 ML BAG IVPB SCH (13:56)
[2017-12-06] MEDS: Sevelamer Carb 2.4 gm/Packet PO SCH (18:17)
[2017-12-06] MEDS: Moxifloxacin IV 400mg/250ml NS 400 MG/250 ML BAG IVPB SCH (18:17)
--- NOTE | 2017-12-06 21:26 | CP.PCM.PN ---
Objective - Vital Signs/Intake and Output Vital Signs (last 24 hours): Temp Pulse Resp BP Pulse Ox 100.4 F H 113 H 20 118/61 97 12/06/17 17:20 12/06/17 16:00 12/06/17 15:52 12/06/17 15:52 12/06/17 15:52 - Medications Medications: Current Medications Acetaminophen (Tylenol 325mg Tab) 650 mg PO Q6 PRN PRN Reason: Fever >100.4 F Last Admin: 12/06/17 17:20 Dose: 650 mg Allopurinol (Zyloprim) 100 mg PO DAILY [facility] Last Admin: 12/06/17 13:57 Dose: 100 mg Clonazepam (Klonopin) 0.5 mg PO BID PRN PRN Reason: Anxiety Last Admin: 12/06/17 17:21 Dose: 0.5 mg Dextrose (Dextrose 50% Inj) 0 ml IV STAT PRN; Protocol PRN Reason: Hypoglycemia Protocol Dextrose (Glutose 15) 0 gm PO ONCE PRN; Protocol PRN Reason: Hypoglycemia Protocol Epoetin Mario Alberto (Procrit) 4,000 unit IV TTS [facility] Last Admin: 12/06/17 10:40 Dose: 4,000 unit Famotidine (Pepcid) 20 mg PO DAILY [facility] Last Admin: 12/06/17 10:08 Dose: Not Given Gabapentin (Neurontin) 100 mg PO BID [facility] Last Admin: 12/06/17 17:21 Dose: 100 mg Heparin Sodium (Porcine) (Heparin) 2,000 units IVP TTS [facility] Last Admin: 12/06/17 10:39 Dose: 2,000 units Heparin Sodium (Porcine) (Heparin) 5,000 units SC Q12 [facility] Last Admin: 12/06/17 10:07 Dose: Not Given Hydralazine HCl (Apresoline) 25 mg PO BID [facility] Last Admin: 12/06/17 17:21 Dose: 25 mg Cefepime HCl 1 gm/ Dextrose 50 mls @ 100 mls/hr IVPB Q12H [facility]; Protocol Last Admin: 12/06/17 10:09 Dose: Not Given Vancomycin/Sodium Chloride (Vancomycin 1 Gm/Ns 200 Ml) 1 gm in 200 mls @ 166.7 mls/hr IVPB TTS [facility]; Protocol Stop: 12/11/17 10:01 Last Admin: 12/06/17 13:56 Dose: 166.7 mls/hr Dextrose (Dextrose 5% In Water 1000 Ml) 1,000 mls @ 0 mls/hr IV .Q0M PRN; Protocol PRN Reason: Hypoglycemia Protocol Moxifloxacin HCl (Avelox Iv 400mg/250ml Ns) 400 mg in 250 mls @ 167 mls/hr IVPB Q24H [facility]; Protocol Last Admin: 12/06/17 18:17 Dose: 167 mls/hr Insulin Aspart (Novolog) 0 unit SC ACHS [facility]; Protocol Last Admin: 12/06/17 16:45 Dose: Not Given Lidocaine (Lidoderm) 1 ea TD DAILY [facility] Last Admin: 12/06/17 10:07 Dose: Not Given Morphine Sulfate (Morphine) 2 mg IVP Q4H PRN PRN Reason: Pain, moderate (4-7) Last Admin: 12/06/17 19:31 Dose: 2 mg Rosuvastatin Calcium (Crestor) 2.5 mg PO HS [facility] Last Admin: 12/05/17 21:41 Dose: 2.5 mg Sevelamer Carbonate (Renvela) 2.4 gm PO TID [facility] Last Admin: 12/06/17 18:17 Dose: 2.4 gm Vitamin B Complex/Vit C/Folic Acid (Nephro-Padma) 1 tab PO DAILY [facility] Last Admin: 12/06/17 10:08 Dose: Not Given - Labs Labs: 12/05/17 09:29 12/05/17 09:29 PT 12.5 SECONDS (9.7-12.2) H 12/05/17 09:29 INR 1.1 12/05/17 09:29 APTT 35 SECONDS (21-34) H 12/05/17 09:29
[2017-12-06] MEDS: Rosuvastatin Calcium 2.5 mg Tab PO SCH (21:58)
[2017-12-07] MEDS: Morphine 4 MG/ML VIAL IVP PRN ×3 (06:39→18:24)
[2017-12-07] MEDS: (Novolog) Insulin Aspart, Recombinant 100 u/ml 10 ml vial SC SCH ×4 (08:01→22:00)
[2017-12-07] MEDS: Sevelamer Carb 2.4 gm/Packet PO SCH ×4 (09:00→18:24)
[2017-12-07] MEDS: Multivitamin Vitamin B Complex (Nephro-Vite) Tab PO SCH (09:47)
[2017-12-07] MEDS: Lidocaine 5% Patch TD SCH (09:49)
--- NOTE | 2017-12-07 10:27 | PN ---
DATE: 12/06/2017 SUBJECTIVE: The patient is coughing. She is wheezing. She feels weak. The patient had hemodialysis this morning. She is afebrile. She denies any nausea or vomiting. PHYSICAL EXAMINATION: VITAL SIGNS: BP is 118/61, pulse rate 118, respiratory rate 20, temperature 100.4. SKIN: Senile turgor. No bruises. No purpura. HEENT: Atraumatic, normocephalic. Negative pallor. NECK: Supple. No JVD. LUNGS: Bilateral scattered crepitations. ASSESSMENT: 1. Bilateral pneumonia. 2. Chronic kidney disease, on hemodialysis. 3. Hypertension. 4. Type 2 diabetes. PLAN: Continue current medication and antibiotics. Add Avelox for atypical coverage and Pulmonary and Cardiology consult. Monitor the patient. Manuel Fuentes MD
[2017-12-07 11:50] LABS: BASO % 0.2 % (0.0-2.0); EOS # 0.1 K/uL (0.0-0.7); EOS % 0.4 % (0.0-4.0); HEMOGLOBIN 8.4 g/dL (11.0-16.0); LYMPH # 2.2 K/uL (1.0-4.3); LYMPH % 14.4 % (20.0-40.0); MEAN CELL VOLUME 86.1 fL (81.0-99.0); MEAN CORPUSCULAR HEMOGLOBIN 27.7 pg (27.0-31.0); MEAN CORPUSCULAR HGB CONC 32.2 g/dL (33.0-37.0); MEAN PLATELET VOLUME 11.2 fL (7.2-11.7); MONO # 2.1 K/uL (0.0-0.8); MONO % 13.7 % (0.0-10.0); NEUT # 10.7 K/uL (1.8-7.0); NEUT % 71.3 % (50.0-75.0); NRBC % 0.1 % (0.0-2.0); RBC 3.02 Mil/uL (3.80-5.20); RED CELL DISTRIBUTION WIDTH 18.9 % (11.5-14.5)
--- NOTE | 2017-12-07 11:51 | CP.PCM.PN ---
Subjective - Date & Time of Evaluation Date of Evaluation: 12/07/17 Time of Evaluation: 11:50 - Subjective Subjective: Nephrology Consultation Note: Assessment: stable sepsis with pneumonia acute pleuritic CP with dyspnoea no evidence of PE Diabetic chronic Kidney Disease (E11.22) Hypertensive Chronic Kidney Disease (I12.0) End stage renal disease (N18.6) dependence on hemodialysis (Z99.2) (TTS) via PC Anemia (D64.9), Hyperphosphatemia (E83.39), Secondary Hyperparathyroidism (E21.1), HTN (I12.0), obesity Plan: Will plan for dialysis friday. Continue with Nephrovite 1 tab/day. PRBC as needed for anemia. on JOHNATHAN with dialysis as last Hb 9.7 Continue with phos binders, check phos level BP control with meds as ordered. Patient not on RAAS cassie, may add if BP high Glycemic control, Dialysis consistent diet Further work up/management as per primary team Dose meds/antibiotics (if needed) for ESRD status. Avoid fleets enema/magnesium based laxatives. ID following, pt started on IV abx Thanks for allowing me to participate in care of your patient. Will follow patient with you. Please call if any Qs. had d/w team Dr Sea Quintero Office: [phone] Chief Complaint; chest pain HPI: Pt is a67 F with hx of ESRD on hemodialysis (TTS) via PC , last dialysis thur, chronic anemia, hyperphosphatemia, secondary hyperparathyroidism, Diabetes Mellitus, hypertension morbid obesity presented with complaints of Rt chest pain acute since last night which was moderate to severe. no trauma as per pt. also wit fever and SOB. recent PC exchange due to dysfxn and left AVF placed. Renal consult requested for ESRD management. pt feels sick with SOB, chest pain which is worse on deep breaths ROS: Cardiovascular: c/o chest pain. Pulmonary: improved shortness of breath Gastrointestinal: denies abdominal pain No nausea. No vomiting. Genitourinary: No pain while urinating. Denies blood in urine. All other negative except as mentioned in HPI Physical Examination: General Appearance: uncomfortable, in no acute respiratory distress, co- operative . Vitals reviewed and noted as below Head; Atraumatic, normocephalic ENT: no ulcers no thrush. Tongue is midline. Oropharynx: no rash or ulcers. EYES: Pupils are equal, round and reactive to light accommodation. Eye muscles and extraocular movement intact. Sclera is anicteric. Neck; supple no lymphadenopathy, no thyromegaly or bruit Lungs: Improved respiratory rate/effort. Breath sounds bilateral decreased at bases with crackles. no rash Heart: Increased rate. s1s2 normal. No rub or gallop. Extremities: no edema. No varicose veins Neurological: Patient is alert, awake and oriented to person, place and time. No focal deficit. Strength bilateral appropriate and equal Skin: Warm and dry. Normal turgor. No rash. Palpitation: Normal elasticity for age Abdomen: Abdomen is soft. Bowel sounds +. There is no abdominal tenderness, no guarding/rigidity or organomegaly Psych: normal insight and normal affect/mood MSK: no joint tenderness or swelling. Digits and nails normal, no deformity : kidney or bladder not palpable Access: PC and left AVF maturing Labs/imaging reviewed. Past medical history, past surgical history, family history, social history, allergy reviewed and noted as below Family Hx: no hx of CKD. Non contributory Objective - Vital Signs/Intake and Output Vital Signs (last 24 hours): Temp Pulse Resp BP Pulse Ox 100.7 F H 117 H 23 104/58 L 95 12/07/17 09:47 12/07/17 08:43 12/07/17 07:46 12/07/17 07:46 12/07/17 07:46 Intake and Output: 12/07/17 12/07/17 06:59 18:59 Intake Total 240 Balance 240 - Medications Medications: Current Medications Acetaminophen (Tylenol 325mg Tab) 650 mg PO Q6 PRN PRN Reason: Fever >100.4 F Last Admin: 12/07/17 09:47 Dose: 650 mg Allopurinol (Zyloprim) 100 mg PO DAILY [facility] Last Admin: 12/07/17 09:48 Dose: 100 mg Clonazepam (Klonopin) 0.5 mg PO BID PRN PRN Reason: Anxiety Last Admin: 12/06/17 17:21 Dose: 0.5 mg Dextrose (Dextrose 50% Inj) 0 ml IV STAT PRN; Protocol PRN Reason: Hypoglycemia Protocol Dextrose (Glutose 15) 0 gm PO ONCE PRN; Protocol PRN Reason: Hypoglycemia Protocol Epoetin Mario Alberto (Procrit) 4,000 unit IV TTS [facility] Last Admin: 12/06/17 10:40 Dose: 4,000 unit Famotidine (Pepcid) 20 mg PO DAILY [facility] Last Admin: 12/07/17 09:48 Dose: 20 mg Gabapentin (Neurontin) 100 mg PO BID [facility] Last Admin: 12/07/17 09:48 Dose: 100 mg Heparin Sodium (Porcine) (Heparin) 2,000 units IVP TTS [facility] Last Admin: 12/06/17 10:39 Dose: 2,000 units Heparin Sodium (Porcine) (Heparin) 5,000 units SC Q12 [facility] Last Admin: 12/07/17 09:48 Dose: 5,000 units Hydralazine HCl (Apresoline) 25 mg PO BID [facility] Last Admin: 12/07/17 09:48 Dose: 25 mg Cefepime HCl 1 gm/ Dextrose 50 mls @ 100 mls/hr IVPB Q12H [facility]; Protocol Last Admin: 12/07/17 11:00 Dose: 100 mls/hr Vancomycin/Sodium Chloride (Vancomycin 1 Gm/Ns 200 Ml) 1 gm in 200 mls @ 166.7 mls/hr IVPB TTS [facility]; Protocol Stop: 12/11/17 10:01 Last Admin: 12/06/17 13:56 Dose: 166.7 mls/hr Dextrose (Dextrose 5% In Water 1000 Ml) 1,000 mls @ 0 mls/hr IV .Q0M PRN; Protocol PRN Reason: Hypoglycemia Protocol Moxifloxacin HCl (Avelox Iv 400mg/250ml Ns) 400 mg in 250 mls @ 167 mls/hr IVPB Q24H [facility]; Protocol Last Admin: 12/06/17 18:17 Dose: 167 mls/hr Insulin Aspart (Novolog) 0 unit SC ACHS [facility]; Protocol Last Admin: 12/07/17 08:01 Dose: Not Given Lidocaine (Lidoderm) 1 ea TD DAILY [facility] Last Admin: 12/07/17 09:49 Dose: 1 ea Morphine Sulfate (Morphine) 2 mg IVP Q4H PRN PRN Reason: Pain, moderate (4-7) Last Admin: 12/07/17 11:15 Dose: 2 mg Rosuvastatin Calcium (Crestor) 2.5 mg PO HS [facility] Last Admin: 12/06/17 21:58 Dose: 2.5 mg Sevelamer Carbonate (Renvela) 2.4 gm PO TID [facility] Last Admin: 12/07/17 09:48 Dose: 2.4 gm Vitamin B Complex/Vit C/Folic Acid (Nephro-Padma) 1 tab PO DAILY [facility] Last Admin: 12/07/17 09:47 Dose: 1 tab - Labs Labs: 12/05/17 09:29 12/05/17 09:29 PT 12.5 SECONDS (9.7-12.2) H 12/05/17 09:29 INR 1.1 12/05/17 09:29 APTT 35 SECONDS (21-34) H 12/05/17 09:29
[2017-12-07 12:07] LABS: ALBUMIN 3.3 g/dL (3.5-5.0); CALCIUM 9.2 mg/dl (8.6-10.4)
--- NOTE | 2017-12-07 14:59 | CP.PCM.PN ---
Subjective - Date & Time of Evaluation Date of Evaluation: 12/07/17 Time of Evaluation: 08:00 - Subjective Subjective: 67 y/o female, with PMHx of ESRD on hemodialysis (, , Fri), presents to ED for evaluation of shortness of breath, fever, and right side chest wall pain. Last dialysis was yesterday. Denies cough, nausea, or vomiting. CT chest shows bilat lower lobe infiltrates, Objective - Vital Signs/Intake and Output Vital Signs (last 24 hours): Temp Pulse Resp BP Pulse Ox 99.1 F 117 H 23 104/58 L 95 12/07/17 10:47 12/07/17 08:43 12/07/17 07:46 12/07/17 07:46 12/07/17 07:46 Intake and Output: 12/07/17 12/07/17 06:59 18:59 Intake Total 240 Balance 240 - Medications Medications: Current Medications Acetaminophen (Tylenol 325mg Tab) 650 mg PO Q6 PRN PRN Reason: Fever >100.4 F Last Admin: 12/07/17 09:47 Dose: 650 mg Allopurinol (Zyloprim) 100 mg PO DAILY [facility] Last Admin: 12/07/17 09:48 Dose: 100 mg Clonazepam (Klonopin) 0.5 mg PO BID PRN PRN Reason: Anxiety Last Admin: 12/06/17 17:21 Dose: 0.5 mg Dextrose (Dextrose 50% Inj) 0 ml IV STAT PRN; Protocol PRN Reason: Hypoglycemia Protocol Dextrose (Glutose 15) 0 gm PO ONCE PRN; Protocol PRN Reason: Hypoglycemia Protocol Epoetin Mario Alberto (Procrit) 4,000 unit IV TTS [facility] Last Admin: 12/06/17 10:40 Dose: 4,000 unit Famotidine (Pepcid) 20 mg PO DAILY [facility] Last Admin: 12/07/17 09:48 Dose: 20 mg Gabapentin (Neurontin) 100 mg PO BID [facility] Last Admin: 12/07/17 09:48 Dose: 100 mg Heparin Sodium (Porcine) (Heparin) 2,000 units IVP TTS [facility] Last Admin: 12/06/17 10:39 Dose: 2,000 units Heparin Sodium (Porcine) (Heparin) 5,000 units SC Q12 [facility] Last Admin: 12/07/17 09:48 Dose: 5,000 units Hydralazine HCl (Apresoline) 25 mg PO BID [facility] Last Admin: 12/07/17 09:48 Dose: 25 mg Cefepime HCl 1 gm/ Dextrose 50 mls @ 100 mls/hr IVPB Q12H [facility]; Protocol Last Admin: 12/07/17 11:00 Dose: 100 mls/hr Vancomycin/Sodium Chloride (Vancomycin 1 Gm/Ns 200 Ml) 1 gm in 200 mls @ 166.7 mls/hr IVPB TTS [facility]; Protocol Stop: 12/11/17 10:01 Last Admin: 12/06/17 13:56 Dose: 166.7 mls/hr Dextrose (Dextrose 5% In Water 1000 Ml) 1,000 mls @ 0 mls/hr IV .Q0M PRN; Protocol PRN Reason: Hypoglycemia Protocol Moxifloxacin HCl (Avelox Iv 400mg/250ml Ns) 400 mg in 250 mls @ 167 mls/hr IVPB Q24H [facility]; Protocol Last Admin: 12/06/17 18:17 Dose: 167 mls/hr Insulin Aspart (Novolog) 0 unit SC ACHS [facility]; Protocol Last Admin: 12/07/17 12:00 Dose: Not Given Lidocaine (Lidoderm) 1 ea TD DAILY [facility] Last Admin: 12/07/17 09:49 Dose: 1 ea Morphine Sulfate (Morphine) 2 mg IVP Q4H PRN PRN Reason: Pain, moderate (4-7) Last Admin: 12/07/17 06:39 Dose: 2 mg Rosuvastatin Calcium (Crestor) 2.5 mg PO HS [facility] Last Admin: 12/06/17 21:58 Dose: 2.5 mg Sevelamer Carbonate (Renvela) 2.4 gm PO TID [facility] Last Admin: 12/07/17 13:04 Dose: 2.4 gm Vitamin B Complex/Vit C/Folic Acid (Nephro-Padma) 1 tab PO DAILY [facility] Last Admin: 12/07/17 09:47 Dose: 1 tab - Labs Labs: 12/07/17 11:38 12/07/17 11:38 PT 12.5 SECONDS (9.7-12.2) H 12/05/17 09:29 INR 1.1 12/05/17 09:29 APTT 35 SECONDS (21-34) H 12/05/17 09:29 - Constitutional Appears: Non-toxic, Chronically Ill - Head Exam Head Exam: NORMOCEPHALIC - Eye Exam Eye Exam: absent: Scleral icterus - ENT Exam ENT Exam: Mucous Membranes Dry, Normal External Ear Exam - Neck Exam Neck Exam: absent: Meningismus - Respiratory Exam Respiratory Exam: Decreased Breath Sounds, Rhonchi - Cardiovascular Exam Cardiovascular Exam: REGULAR RHYTHM, +S1, +S2 - GI/Abdominal Exam GI & Abdominal Exam: Distended, Soft. absent: Tenderness - Rectal Exam Rectal Exam: Deferred - Exam Exam: NORMAL INSPECTION - Extremities Exam Extremities Exam: absent: Pedal Edema - Back Exam Back Exam: absent: CVA tenderness (L), CVA tenderness (R) - Neurological Exam Neurological Exam: Alert, Awake Assessment and Plan (1) End stage renal failure on dialysis Status: Acute (2) Chest pain Status: Acute (3) Pneumonia Status: Acute (4) Fever Status: Acute (5) SOB (shortness of breath) Status: Acute - Assessment and Plan (Free Text) Assessment: IV rx reordered cu;tures neg thus far
[2017-12-07] MEDS: Moxifloxacin IV 400mg/250ml NS 400 MG/250 ML BAG IVPB SCH (16:30)
--- NOTE | 2017-12-07 20:55 | CP.PCM.PN ---
Objective - Vital Signs/Intake and Output Vital Signs (last 24 hours): Temp Pulse Resp BP Pulse Ox 99.8 F H 84 20 123/62 95 12/07/17 15:56 12/07/17 15:56 12/07/17 15:56 12/07/17 15:56 12/07/17 15:56 Intake and Output: 12/07/17 12/08/17 18:59 06:59 Intake Total 480 Balance 480 - Medications Medications: Current Medications Acetaminophen (Tylenol 325mg Tab) 650 mg PO Q6 PRN PRN Reason: Fever >100.4 F Last Admin: 12/07/17 09:47 Dose: 650 mg Allopurinol (Zyloprim) 100 mg PO DAILY [facility] Last Admin: 12/07/17 09:48 Dose: 100 mg Clonazepam (Klonopin) 0.5 mg PO BID PRN PRN Reason: Anxiety Last Admin: 12/06/17 17:21 Dose: 0.5 mg Dextrose (Dextrose 50% Inj) 0 ml IV STAT PRN; Protocol PRN Reason: Hypoglycemia Protocol Dextrose (Glutose 15) 0 gm PO ONCE PRN; Protocol PRN Reason: Hypoglycemia Protocol Epoetin Mario Alberto (Procrit) 4,000 unit IV TTS [facility] Last Admin: 12/06/17 10:40 Dose: 4,000 unit Famotidine (Pepcid) 20 mg PO DAILY [facility] Last Admin: 12/07/17 09:48 Dose: 20 mg Gabapentin (Neurontin) 100 mg PO BID [facility] Last Admin: 12/07/17 18:24 Dose: 100 mg Heparin Sodium (Porcine) (Heparin) 2,000 units IVP TTS [facility] Last Admin: 12/06/17 10:39 Dose: 2,000 units Heparin Sodium (Porcine) (Heparin) 5,000 units SC Q12 [facility] Last Admin: 12/07/17 09:48 Dose: 5,000 units Hydralazine HCl (Apresoline) 25 mg PO BID [facility] Last Admin: 12/07/17 18:24 Dose: 25 mg Cefepime HCl 1 gm/ Dextrose 50 mls @ 100 mls/hr IVPB Q12H [facility]; Protocol Last Admin: 12/07/17 11:00 Dose: 100 mls/hr Vancomycin/Sodium Chloride (Vancomycin 1 Gm/Ns 200 Ml) 1 gm in 200 mls @ 166.7 mls/hr IVPB TTS [facility]; Protocol Stop: 12/11/17 10:01 Last Admin: 12/06/17 13:56 Dose: 166.7 mls/hr Dextrose (Dextrose 5% In Water 1000 Ml) 1,000 mls @ 0 mls/hr IV .Q0M PRN; Protocol PRN Reason: Hypoglycemia Protocol Moxifloxacin HCl (Avelox Iv 400mg/250ml Ns) 400 mg in 250 mls @ 167 mls/hr IVPB Q24H [facility]; Protocol Last Admin: 12/07/17 16:30 Dose: 167 mls/hr Insulin Aspart (Novolog) 0 unit SC ACHS [facility]; Protocol Last Admin: 12/07/17 18:24 Dose: Not Given Lidocaine (Lidoderm) 1 ea TD DAILY [facility] Last Admin: 12/07/17 09:49 Dose: 1 ea Morphine Sulfate (Morphine) 2 mg IVP Q4H PRN PRN Reason: Pain, moderate (4-7) Last Admin: 12/07/17 18:24 Dose: 2 mg Rosuvastatin Calcium (Crestor) 2.5 mg PO HS [facility] Last Admin: 12/06/17 21:58 Dose: 2.5 mg Sevelamer Carbonate (Renvela) 2.4 gm PO TID [facility] Last Admin: 12/07/17 18:24 Dose: 2.4 gm Vitamin B Complex/Vit C/Folic Acid (Nephro-Padma) 1 tab PO DAILY [facility] Last Admin: 12/07/17 09:47 Dose: 1 tab - Labs Labs: 12/07/17 11:38 12/07/17 11:38 PT 12.5 SECONDS (9.7-12.2) H 12/05/17 09:29 INR 1.1 12/05/17 09:29 APTT 35 SECONDS (21-34) H 12/05/17 09:29
--- NOTE | 2017-12-07 22:14 | CP.PCM.CON ---
History of Present Illness - History of Present Illness History of Present Illness: Patient seen and evaluated History Of Present Illness 67 y/o female, with PMHx of ESRD on hemodialysis ([facility], [facility], Sat), presents to for evaluation of shortness of breath, fever, and right side chest wall pain. Last dialysis was today . Denies cough, nausea, or vomiting. Chief Complaint (Nursing): Shortness Of Breath History Per: Patient History/Exam Limitations: no limitations Past Medical History Reviewed: Historical Data, Nursing Documentation, Vital Signs Vital Signs: Last Vital Signs Temp 101.5 F H 12/05/17 08:56 Pulse 127 H 12/05/17 08:46 Resp 24 12/05/17 08:46 BP 147/80 12/05/17 08:46 Pulse Ox 97 12/05/17 08:46 - Medical History PMH: Arthritis, HTN, Hypercholesterolemia, End Stage Renal Disease, Chronic Kidney Disease Family History: States: Unknown Family Hx - Social History Hx Alcohol Use: No Hx Substance Use: No - Immunization History Hx Tetanus Toxoid Vaccination: Yes Hx Influenza Vaccination: Yes Hx Pneumococcal Vaccination: No Review Of Systems Except As Marked, All Systems Reviewed And Found Negative. Constitutional: Positive for: Fever Cardiovascular: Positive for: Chest Pain (chest wall). Negative for: Palpitations, Light Headedness Respiratory: Positive for: Shortness of Breath. Negative for: Cough, Sputum Gastrointestinal: Negative for: Nausea, Vomiting, Abdominal Pain Physical Exam - Physical Exam Appears: Non-toxic, No Acute Distress Skin: Normal Color, Warm, Dry Head: Atraumatic, Normacephalic Eye(s): bilateral: Normal Inspection Oral Mucosa: Moist Neck: Normal ROM, Supple Chest: Symmetrical, No Tenderness, Other (catheter to right anterior chest wall) Cardiovascular: Rhythm Regular, No Murmur Respiratory: No Accessory Muscle Use, Rales (bilateral bases), No Rhonchi, No Wheezing Gastrointestinal/Abdominal: Soft, No Tenderness Extremity: Normal ROM, Other (Left arm AV fistula) Neurological/Psych: Oriented x3, Normal Speech Past Patient History - Infectious Disease Hx of Infectious Diseases: None - Past Medical History & Family History Past Medical History?: Yes - Past Social History Smoking Status: Former Smoker - CARDIAC Hx Hypercholesterolemia: Yes Hx Hypertension: Yes - PULMONARY Hx Respiratory Disorders: Yes Other/Comment: SOB ON EXERTION - NEUROLOGICAL Hx Neurological Disorder: No - HEENT Hx HEENT Problems: No - RENAL Hx Chronic Kidney Disease: Yes Hx Dialysis: Yes Type of Dialysis Access: Right chest permacath, left arm AV fistula Date of Last Dialysis Treatment: 12/04/17 Hx Renal Failure: Yes - ENDOCRINE/METABOLIC Hx Endocrine Disorders: Yes Hx Diabetes Mellitus Type 2: Yes - HEMATOLOGICAL/ONCOLOGICAL Hx Blood Disorders: No - INTEGUMENTARY Hx Dermatological Problems: Yes Other/Comment: HX: "SORES ON BOTH LOWER EXTREMITIES-ALMOST ALL HEALED WITH TX. FROM MD." - MUSCULOSKELETAL/RHEUMATOLOGICAL Hx Arthritis: Yes - GASTROINTESTINAL Hx Gastrointestinal Disorders: No - GENITOURINARY/GYNECOLOGICAL Hx Genitourinary Disorders: No - PSYCHIATRIC Hx Psychophysiologic Disorder: No Hx Substance Use: No - SURGICAL HISTORY Hx Surgeries: Yes Hx Arteriovenous Shunt: Yes Hx Vascular Access Device: Yes (RIGHT CHEST PERMACATH) Other/Comment: HX: ENDOVENOUS LASER ABLATION OF LEFT LEG. RIGHT UA FISTULA - ANESTHESIA Hx Anesthesia: Yes Hx Anesthesia Reactions: No Hx Malignant Hyperthermia: No Has any member of the family had a problem w/ anesthesia?: No Meds Allergies/Adverse Reactions: Allergies Allergy/AdvReac Type Severity Reaction Status Date / Time No Known Allergies Allergy Verified 12/05/17 08:43 - Medications Medications: Current Medications Acetaminophen (Tylenol 325mg Tab) 650 mg PO Q6 PRN PRN Reason: Fever >100.4 F Last Admin: 12/07/17 09:47 Dose: 650 mg Allopurinol (Zyloprim) 100 mg PO DAILY [facility] Last Admin: 12/07/17 09:48 Dose: 100 mg Clonazepam (Klonopin) 0.5 mg PO BID PRN PRN Reason: Anxiety Last Admin: 12/06/17 17:21 Dose: 0.5 mg Dextrose (Dextrose 50% Inj) 0 ml IV STAT PRN; Protocol PRN Reason: Hypoglycemia Protocol Dextrose (Glutose 15) 0 gm PO ONCE PRN; Protocol PRN Reason: Hypoglycemia Protocol Epoetin Mario Alberto (Procrit) 4,000 unit IV TTS [facility] Last Admin: 12/06/17 10:40 Dose: 4,000 unit Famotidine (Pepcid) 20 mg PO DAILY [facility] Last Admin: 12/07/17 09:48 Dose: 20 mg Gabapentin (Neurontin) 100 mg PO BID [facility] Last Admin: 12/07/17 18:24 Dose: 100 mg Heparin Sodium (Porcine) (Heparin) 2,000 units IVP TTS [facility] Last Admin: 12/06/17 10:39 Dose: 2,000 units Heparin Sodium (Porcine) (Heparin) 5,000 units SC Q12 [facility] Last Admin: 12/07/17 09:48 Dose: 5,000 units Hydralazine HCl (Apresoline) 25 mg PO BID [facility] Last Admin: 12/07/17 18:24 Dose: 25 mg Cefepime HCl 1 gm/ Dextrose 50 mls @ 100 mls/hr IVPB Q12H [facility]; Protocol Last Admin: 12/07/17 11:00 Dose: 100 mls/hr Vancomycin/Sodium Chloride (Vancomycin 1 Gm/Ns 200 Ml) 1 gm in 200 mls @ 166.7 mls/hr IVPB TTS [facility]; Protocol Stop: 12/11/17 10:01 Last Admin: 12/06/17 13:56 Dose: 166.7 mls/hr Dextrose (Dextrose 5% In Water 1000 Ml) 1,000 mls @ 0 mls/hr IV .Q0M PRN; Protocol PRN Reason: Hypoglycemia Protocol Moxifloxacin HCl (Avelox Iv 400mg/250ml Ns) 400 mg in 250 mls @ 167 mls/hr IVPB Q24H [facility]; Protocol Last Admin: 12/07/17 16:30 Dose: 167 mls/hr Insulin Aspart (Novolog) 0 unit SC ACHS [facility]; Protocol Last Admin: 12/07/17 18:24 Dose: Not Given Lidocaine (Lidoderm) 1 ea TD DAILY [facility] Last Admin: 12/07/17 09:49 Dose: 1 ea Morphine Sulfate (Morphine) 2 mg IVP Q4H PRN PRN Reason: Pain, moderate (4-7) Last Admin: 12/07/17 18:24 Dose: 2 mg Rosuvastatin Calcium (Crestor) 2.5 mg PO HS [facility] Last Admin: 12/06/17 21:58 Dose: 2.5 mg Sevelamer Carbonate (Renvela) 2.4 gm PO TID [facility] Last Admin: 12/07/17 18:24 Dose: 2.4 gm Vitamin B Complex/Vit C/Folic Acid (Nephro-Padma) 1 tab PO DAILY [facility] Last Admin: 12/07/17 09:47 Dose: 1 tab Results - Vital Signs Recent Vital Signs: Last Vital Signs Temp 99.8 F H 12/07/17 15:56 Pulse 125 H 12/07/17 16:00 Resp 20 12/07/17 15:56 BP 123/62 12/07/17 15:56 Pulse Ox 95 12/07/17 15:56 - Labs Result Diagrams: 12/07/17 11:38 12/07/17 11:38 Labs: Laboratory Results - last 24 hr 12/07/17 12/07/17 12/07/17 06:08 10:51 11:38 WBC 15.0 H RBC 3.02 L Hgb 8.4 L Hct 26.0 L MCV 86.1 MCH 27.7 MCHC 32.2 L RDW 18.9 H Plt Count 186 MPV 11.2 Neut % (Auto) 71.3 Lymph % (Auto) 14.4 L Mcclain % (Auto) 13.7 H Eos % (Auto) 0.4 Baso % (Auto) 0.2 Neut # (Auto) 10.7 H Lymph # (Auto) 2.2 Mcclain # (Auto) 2.1 H Eos # (Auto) 0.1 Baso # (Auto) 0.0 Sodium Potassium Chloride Carbon Dioxide Anion Gap BUN Creatinine Est GFR ( Amer) Est GFR (Non-Af Amer) POC Glucose (mg/dL) 124 H 121 H Random Glucose Calcium Total Bilirubin AST ALT Alkaline Phosphatase Total Protein Albumin Globulin Albumin/Globulin Ratio 12/07/17 12/07/17 11:38 16:31 WBC RBC Hgb Hct MCV MCH MCHC RDW Plt Count MPV Neut % (Auto) Lymph % (Auto) Mcclain % (Auto) Eos % (Auto) Baso % (Auto) Neut # (Auto) Lymph # (Auto) Mcclain # (Auto) Eos # (Auto) Baso # (Auto) Sodium 136 Potassium 4.0 Chloride 95 L Carbon Dioxide 29 Anion Gap 15 BUN 26 H Creatinine 4.8 H Est GFR ( Amer) 11 Est GFR (Non-Af Amer) 9 POC Glucose (mg/dL) 105 Random Glucose 121 H Calcium 9.2 Total Bilirubin 1.0 AST 12 L D ALT 21 Alkaline Phosphatase 117 Total Protein 6.8 Albumin 3.3 L Globulin 3.5 Albumin/Globulin Ratio 1.0 Assessment & Plan - Assessment and Plan (Free Text) Assessment: Assessment and Plan (1) End stage renal failure on dialysis Status: Acute (2) Chest pain and Dyspnea Status: Acute R/O CAD ECHO in am (3) Pneumonia Status: Acute On antibiotics (4) Fever Status: Acute (5) SOB (shortness of breath) Status: Acute No evidence of PE
[2017-12-07] MEDS: Rosuvastatin Calcium 2.5 mg Tab PO SCH (22:43)
--- NOTE | 2017-12-08 02:22 | PN ---
DATE: 12/07/2017 SUBJECTIVE: The patient is seen by Infectious Disease and ID. The patient has low grade fever, 99.8. She is tachycardic. She is refusing to take IV antibiotics. She is anxious. PHYSICAL EXAMINATION: VITAL SIGNS: Blood pressure 122/62, pulse 84 to 125, respiratory rate 20. LUNGS: Bilateral scattered rales and rhonchi. CVS: S1, S2 are regular. ABDOMEN: Soft. ASSESSMENT: 1. Bilateral pneumonia. 2. Chronic kidney disease, on hemodialysis. 3. Type 2 diabetes. 4. Hypertension. PLAN: Antibiotics. ID evaluation. Pulmonary evaluation. Monitor the patient. Manuel Fuentes MD
[2017-12-08] MEDS: (Novolog) Insulin Aspart, Recombinant 100 u/ml 10 ml vial SC SCH ×4 (07:30→21:51)
[2017-12-08] MEDS: Multivitamin Vitamin B Complex (Nephro-Vite) Tab PO SCH (10:38)
[2017-12-08] MEDS: Lidocaine 5% Patch TD SCH (10:39)
[2017-12-08] MEDS: Sevelamer Carb 2.4 gm/Packet PO SCH ×3 (10:40→18:00)
--- NOTE | 2017-12-08 15:33 | CP.PCM.PN ---
Subjective - Date & Time of Evaluation Date of Evaluation: 12/08/17 Time of Evaluation: 15:33 - Subjective Subjective: Nephrology Consultation Note: Assessment: stable sepsis with pneumonia acute pleuritic CP with dyspnoea no evidence of PE Diabetic chronic Kidney Disease (E11.22) Hypertensive Chronic Kidney Disease (I12.0) End stage renal disease (N18.6) dependence on hemodialysis (Z99.2) (TTS) via PC Anemia (D64.9), Hyperphosphatemia (E83.39), Secondary Hyperparathyroidism (E21.1), HTN (I12.0), obesity Plan: Will plan for dialysis friday. Continue with Nephrovite 1 tab/day. PRBC as needed for anemia. on JOHNATHAN with dialysis as last Hb 9.7 Continue with phos binders, check phos level BP control with meds as ordered. Patient not on RAAS cassie, may add if BP high Glycemic control, Dialysis consistent diet Further work up/management as per primary team Dose meds/antibiotics (if needed) for ESRD status. Avoid fleets enema/magnesium based laxatives. ID following, pt started on IV abx Thanks for allowing me to participate in care of your patient. Will follow patient with you. Please call if any Qs. had d/w team Dr Sea Quintero Office: [phone] Chief Complaint; chest pain HPI: Pt is a67 F with hx of ESRD on hemodialysis (TTS) via PC , last dialysis thur, chronic anemia, hyperphosphatemia, secondary hyperparathyroidism, Diabetes Mellitus, hypertension morbid obesity presented with complaints of Rt chest pain acute since last night which was moderate to severe. no trauma as per pt. also wit fever and SOB. recent PC exchange due to dysfxn and left AVF placed. Renal consult requested for ESRD management. pt feels sick with SOB, chest pain which is worse on deep breaths ROS: feels sleepy Cardiovascular: improved chest pain. Pulmonary: improved shortness of breath Gastrointestinal: denies abdominal pain No nausea. No vomiting. Genitourinary: No pain while urinating. Denies blood in urine. All other negative except as mentioned in HPI Physical Examination: General Appearance: comfortable, in no acute respiratory distress, co-operative . Vitals reviewed and noted as below Head; Atraumatic, normocephalic ENT: no ulcers no thrush. Tongue is midline. Oropharynx: no rash or ulcers. EYES: Pupils are equal, round and reactive to light accommodation. Eye muscles and extraocular movement intact. Sclera is anicteric. Neck; supple no lymphadenopathy, no thyromegaly or bruit Lungs: Improved respiratory rate/effort. Breath sounds bilateral decreased at bases with crackles. no rash Heart: Increased rate. s1s2 normal. No rub or gallop. Extremities: no edema. No varicose veins Neurological: Patient is sleepy but oriented to person, place and time. No focal deficit. Strength bilateral appropriate and equal Skin: Warm and dry. Normal turgor. No rash. Palpitation: Normal elasticity for age Abdomen: Abdomen is soft. Bowel sounds +. There is no abdominal tenderness, no guarding/rigidity or organomegaly Psych: normal insight and normal affect/mood MSK: no joint tenderness or swelling. Digits and nails normal, no deformity : kidney or bladder not palpable Access: PC and left AVF maturing Labs/imaging reviewed. Past medical history, past surgical history, family history, social history, allergy reviewed and noted as below Family Hx: no hx of CKD. Non contributory Objective - Vital Signs/Intake and Output Vital Signs (last 24 hours): Temp Pulse Resp BP Pulse Ox 98.3 F 120 H 20 117/65 98 12/08/17 11:38 12/08/17 07:51 12/08/17 07:51 12/08/17 07:51 12/08/17 07:51 - Medications Medications: Current Medications Acetaminophen (Tylenol 325mg Tab) 650 mg PO Q6 PRN PRN Reason: Fever >100.4 F Last Admin: 12/08/17 10:38 Dose: 650 mg Allopurinol (Zyloprim) 100 mg PO DAILY [facility] Last Admin: 12/08/17 10:38 Dose: 100 mg Clonazepam (Klonopin) 0.5 mg PO BID PRN PRN Reason: Anxiety Last Admin: 12/06/17 17:21 Dose: 0.5 mg Dextrose (Dextrose 50% Inj) 0 ml IV STAT PRN; Protocol PRN Reason: Hypoglycemia Protocol Dextrose (Glutose 15) 0 gm PO ONCE PRN; Protocol PRN Reason: Hypoglycemia Protocol Epoetin Mario Alberto (Procrit) 4,000 unit IV TTS [facility] Last Admin: 12/06/17 10:40 Dose: 4,000 unit Famotidine (Pepcid) 20 mg PO DAILY [facility] Last Admin: 12/08/17 10:38 Dose: 20 mg Gabapentin (Neurontin) 100 mg PO BID [facility] Last Admin: 12/08/17 10:38 Dose: 100 mg Heparin Sodium (Porcine) (Heparin) 2,000 units IVP TTS [facility] Last Admin: 12/06/17 10:39 Dose: 2,000 units Heparin Sodium (Porcine) (Heparin) 5,000 units SC Q12 [facility] Last Admin: 12/08/17 10:38 Dose: 5,000 units Hydralazine HCl (Apresoline) 25 mg PO BID [facility] Last Admin: 12/08/17 10:38 Dose: 25 mg Cefepime HCl 1 gm/ Dextrose 50 mls @ 100 mls/hr IVPB Q12H [facility]; Protocol Last Admin: 12/08/17 10:39 Dose: 100 mls/hr Vancomycin/Sodium Chloride (Vancomycin 1 Gm/Ns 200 Ml) 1 gm in 200 mls @ 166.7 mls/hr IVPB TTS [facility]; Protocol Stop: 12/11/17 10:01 Last Admin: 12/06/17 13:56 Dose: 166.7 mls/hr Dextrose (Dextrose 5% In Water 1000 Ml) 1,000 mls @ 0 mls/hr IV .Q0M PRN; Protocol PRN Reason: Hypoglycemia Protocol Moxifloxacin HCl (Avelox Iv 400mg/250ml Ns) 400 mg in 250 mls @ 167 mls/hr IVPB Q24H [facility]; Protocol Last Admin: 12/07/17 16:30 Dose: 167 mls/hr Insulin Aspart (Novolog) 0 unit SC ACHS [facility]; Protocol Last Admin: 12/08/17 11:50 Dose: Not Given Lidocaine (Lidoderm) 1 ea TD DAILY [facility] Last Admin: 12/08/17 10:39 Dose: 1 ea Morphine Sulfate (Morphine) 2 mg IVP Q4H PRN PRN Reason: Pain, moderate (4-7) Last Admin: 12/07/17 18:24 Dose: 2 mg Rosuvastatin Calcium (Crestor) 2.5 mg PO HS [facility] Last Admin: 12/07/17 22:43 Dose: 2.5 mg Sevelamer Carbonate (Renvela) 2.4 gm PO TID [facility] Last Admin: 12/08/17 14:16 Dose: Not Given Vitamin B Complex/Vit C/Folic Acid (Nephro-Padma) 1 tab PO DAILY [facility] Last Admin: 12/08/17 10:38 Dose: 1 tab - Labs Labs: 12/07/17 11:38 12/07/17 11:38 PT 12.5 SECONDS (9.7-12.2) H 12/05/17 09:29 INR 1.1 12/05/17 09:29 APTT 35 SECONDS (21-34) H 12/05/17 09:29
--- NOTE | 2017-12-08 16:07 | CP.PCM.CON ---
History of Present Illness - History of Present Illness History of Present Illness: Reason for consultation: shortness of breath and right-sided chest pain Patient is a 67 year old female with a PMHx of ESRD on hemodialysis, DM type II arthritis, hypercholesterolemia, CKD who presented to the ED 4 days ago with shortness of breath, fever, and right sided chest wall pain. Patient admits of fever and difficulty breathing. Patient denies chest pain. Chest CT showed bilateral lower lobe infiltrates, no pleural effusion, no pneumothorax. PMHx of ESRD on hemodialysis, DM type II, arthritis, hypercholesterolemia, CKD Fam Hx: unknown Surgical Hx: Endovenous laser ablation of left leg, Right UA fistula Social Hx: denies tobacco and alcohol use Allergies: NKDA Review of Systems - Review of Systems All systems: reviewed and no additional remarkable complaints except (Shortness of breath and right-sided chest pain) Past Patient History - Infectious Disease Hx of Infectious Diseases: None - Past Medical History & Family History Past Medical History?: Yes - Past Social History Smoking Status: Former Smoker - CARDIAC Hx Hypercholesterolemia: Yes Hx Hypertension: Yes - PULMONARY Hx Respiratory Disorders: Yes Other/Comment: SOB ON EXERTION - NEUROLOGICAL Hx Neurological Disorder: No - HEENT Hx HEENT Problems: No - RENAL Hx Renal Failure: Yes - ENDOCRINE/METABOLIC Hx Diabetes Mellitus Type 2: Yes - HEMATOLOGICAL/ONCOLOGICAL Hx Blood Disorders: No - INTEGUMENTARY Hx Dermatological Problems: Yes Other/Comment: HX: "SORES ON BOTH LOWER EXTREMITIES-ALMOST ALL HEALED WITH TX. Fab VERDE MD." - MUSCULOSKELETAL/RHEUMATOLOGICAL Hx Arthritis: Yes - GASTROINTESTINAL Hx Gastrointestinal Disorders: No - GENITOURINARY/GYNECOLOGICAL Hx Genitourinary Disorders: No - PSYCHIATRIC Hx Psychophysiologic Disorder: No Hx Substance Use: No - SURGICAL HISTORY Hx Surgeries: Yes Hx Arteriovenous Shunt: Yes Hx Vascular Access Device: Yes (RIGHT CHEST PERMACATH) Other/Comment: HX: ENDOVENOUS LASER ABLATION OF LEFT LEG. RIGHT UA FISTULA - ANESTHESIA Hx Anesthesia: Yes Hx Anesthesia Reactions: No Hx Malignant Hyperthermia: No Has any member of the family had a problem w/ anesthesia?: No Meds Allergies/Adverse Reactions: Allergies Allergy/AdvReac Type Severity Reaction Status Date / Time No Known Allergies Allergy Verified 12/05/17 08:43 - Medications Medications: Current Medications Acetaminophen (Tylenol 325mg Tab) 650 mg PO Q6 PRN PRN Reason: Fever >100.4 F Last Admin: 12/08/17 10:38 Dose: 650 mg Allopurinol (Zyloprim) 100 mg PO DAILY [facility] Last Admin: 12/08/17 10:38 Dose: 100 mg Clonazepam (Klonopin) 0.5 mg PO BID PRN PRN Reason: Anxiety Last Admin: 12/06/17 17:21 Dose: 0.5 mg Dextrose (Dextrose 50% Inj) 0 ml IV STAT PRN; Protocol PRN Reason: Hypoglycemia Protocol Dextrose (Glutose 15) 0 gm PO ONCE PRN; Protocol PRN Reason: Hypoglycemia Protocol Epoetin Mario Alberto (Procrit) 10,000 unit IV TTS [facility] Famotidine (Pepcid) 20 mg PO DAILY [facility] Last Admin: 12/08/17 10:38 Dose: 20 mg Gabapentin (Neurontin) 100 mg PO HS [facility] Heparin Sodium (Porcine) (Heparin) 2,000 units IVP TTS [facility] Last Admin: 12/06/17 10:39 Dose: 2,000 units Heparin Sodium (Porcine) (Heparin) 5,000 units SC Q12 [facility] Last Admin: 12/08/17 10:38 Dose: 5,000 units Hydralazine HCl (Apresoline) 25 mg PO BID [facility] Last Admin: 12/08/17 10:38 Dose: 25 mg Cefepime HCl 1 gm/ Dextrose 50 mls @ 100 mls/hr IVPB Q12H [facility]; Protocol Last Admin: 12/08/17 10:39 Dose: 100 mls/hr Vancomycin/Sodium Chloride (Vancomycin 1 Gm/Ns 200 Ml) 1 gm in 200 mls @ 166.7 mls/hr IVPB TTS [facility]; Protocol Stop: 12/11/17 10:01 Last Admin: 12/06/17 13:56 Dose: 166.7 mls/hr Dextrose (Dextrose 5% In Water 1000 Ml) 1,000 mls @ 0 mls/hr IV .Q0M PRN; Protocol PRN Reason: Hypoglycemia Protocol Moxifloxacin HCl (Avelox Iv 400mg/250ml Ns) 400 mg in 250 mls @ 167 mls/hr IVPB Q24H [facility]; Protocol Last Admin: 12/07/17 16:30 Dose: 167 mls/hr Insulin Aspart (Novolog) 0 unit SC ACHS [facility]; Protocol Last Admin: 12/08/17 11:50 Dose: Not Given Lidocaine (Lidoderm) 1 ea TD DAILY [facility] Last Admin: 12/08/17 10:39 Dose: 1 ea Morphine Sulfate (Morphine) 2 mg IVP Q4H PRN PRN Reason: Pain, moderate (4-7) Last Admin: 12/07/17 18:24 Dose: 2 mg Rosuvastatin Calcium (Crestor) 2.5 mg PO HS [facility] Last Admin: 12/07/17 22:43 Dose: 2.5 mg Sevelamer Carbonate (Renvela) 2.4 gm PO TID [facility] Last Admin: 12/08/17 14:16 Dose: Not Given Vitamin B Complex/Vit C/Folic Acid (Nephro-Padma) 1 tab PO DAILY [facility] Last Admin: 12/08/17 10:38 Dose: 1 tab Physical Exam - Head Exam Head Exam: ATRAUMATIC, NORMOCEPHALIC - Eye Exam Eye Exam: Normal appearance - ENT Exam ENT Exam: Mucous Membranes Moist - Neck Exam Neck exam: Positive for: Normal Inspection - Respiratory Exam Respiratory Exam: Decreased Breath Sounds - Cardiovascular Exam Cardiovascular Exam: REGULAR RHYTHM - GI/Abdominal Exam GI & Abdominal Exam: Normal Bowel Sounds, Soft - Extremities Exam Extremities exam: Positive for: normal inspection Results - Vital Signs Recent Vital Signs: Last Vital Signs Temp 98.3 F 12/08/17 11:38 Pulse 120 H 12/08/17 07:51 Resp 20 12/08/17 07:51 BP 117/65 12/08/17 07:51 Pulse Ox 98 12/08/17 07:51 - Labs Result Diagrams: 12/07/17 11:38 12/07/17 11:38 Labs: Laboratory Results - last 24 hr 12/07/17 12/07/17 12/08/17 16:31 21:35 06:01 POC Glucose (mg/dL) 105 109 110 12/08/17 12/08/17 10:38 11:25 POC Glucose (mg/dL) 132 H 128 H Assessment & Plan (1) Pneumonia Status: Acute Comment: continue antibiotics. Followup culture and sensitivity. Followup chest x-ray (2) Chest pain Status: Acute (3) End stage renal failure on dialysis Status: Acute
[2017-12-08] MEDS: Moxifloxacin IV 400mg/250ml NS 400 MG/250 ML BAG IVPB SCH (16:36)
[2017-12-08 17:34] LABS: BASO % 0.3 % (0.0-2.0); EOS # 0.1 K/uL (0.0-0.7); EOS % 0.6 % (0.0-4.0); HEMOGLOBIN 7.6 g/dL (11.0-16.0); LYMPH # 1.5 K/uL (1.0-4.3); LYMPH % 11.9 % (20.0-40.0); MEAN CELL VOLUME 84.9 fL (81.0-99.0); MEAN CORPUSCULAR HEMOGLOBIN 27.1 pg (27.0-31.0); MEAN CORPUSCULAR HGB CONC 31.9 g/dL (33.0-37.0); MEAN PLATELET VOLUME 10.3 fL (7.2-11.7); MONO # 1.9 K/uL (0.0-0.8); MONO % 15.1 % (0.0-10.0); NEUT # 9.1 K/uL (1.8-7.0); NEUT % 72.1 % (50.0-75.0); RBC 2.8 Mil/uL (3.80-5.20); WHITE BLOOD COUNT 12.6 K/uL (4.8-10.8)
[2017-12-08 18:00] LABS: ALBUMIN 3.2 g/dL (3.5-5.0)
[2017-12-08] MEDS: Rosuvastatin Calcium 2.5 mg Tab PO SCH (21:51)
--- NOTE | 2017-12-08 22:15 | CP.PCM.PN ---
Objective - Vital Signs/Intake and Output Vital Signs (last 24 hours): Temp Pulse Resp BP Pulse Ox 98.3 F 103 H 20 116/75 97 12/08/17 16:12 12/08/17 16:12 12/08/17 16:12 12/08/17 16:12 12/08/17 16:12 - Medications Medications: Current Medications Acetaminophen (Tylenol 325mg Tab) 650 mg PO Q6 PRN PRN Reason: Fever >100.4 F Last Admin: 12/08/17 10:38 Dose: 650 mg Allopurinol (Zyloprim) 100 mg PO DAILY [facility] Last Admin: 12/08/17 10:38 Dose: 100 mg Clonazepam (Klonopin) 0.5 mg PO BID PRN PRN Reason: Anxiety Last Admin: 12/06/17 17:21 Dose: 0.5 mg Dextrose (Dextrose 50% Inj) 0 ml IV STAT PRN; Protocol PRN Reason: Hypoglycemia Protocol Dextrose (Glutose 15) 0 gm PO ONCE PRN; Protocol PRN Reason: Hypoglycemia Protocol Epoetin Mario Alberto (Procrit) 10,000 unit IV TTS [facility] Famotidine (Pepcid) 20 mg PO DAILY [facility] Last Admin: 12/08/17 10:38 Dose: 20 mg Gabapentin (Neurontin) 100 mg PO HS [facility] Heparin Sodium (Porcine) (Heparin) 2,000 units IVP TTS [facility] Last Admin: 12/06/17 10:39 Dose: 2,000 units Heparin Sodium (Porcine) (Heparin) 5,000 units SC Q12 [facility] Last Admin: 12/08/17 21:58 Dose: 5,000 units Hydralazine HCl (Apresoline) 25 mg PO BID [facility] Last Admin: 12/08/17 18:00 Dose: Not Given Cefepime HCl 1 gm/ Dextrose 50 mls @ 100 mls/hr IVPB Q12H [facility]; Protocol Last Admin: 12/08/17 21:51 Dose: 100 mls/hr Vancomycin/Sodium Chloride (Vancomycin 1 Gm/Ns 200 Ml) 1 gm in 200 mls @ 166.7 mls/hr IVPB TTS [facility]; Protocol Stop: 12/11/17 10:01 Last Admin: 12/06/17 13:56 Dose: 166.7 mls/hr Dextrose (Dextrose 5% In Water 1000 Ml) 1,000 mls @ 0 mls/hr IV .Q0M PRN; Protocol PRN Reason: Hypoglycemia Protocol Moxifloxacin HCl (Avelox Iv 400mg/250ml Ns) 400 mg in 250 mls @ 167 mls/hr IVPB Q24H [facility]; Protocol Last Admin: 12/08/17 16:36 Dose: 167 mls/hr Insulin Aspart (Novolog) 0 unit SC ACHS [facility]; Protocol Last Admin: 12/08/17 21:51 Dose: Not Given Lidocaine (Lidoderm) 1 ea TD DAILY [facility] Last Admin: 12/08/17 10:39 Dose: 1 ea Morphine Sulfate (Morphine) 2 mg IVP Q4H PRN PRN Reason: Pain, moderate (4-7) Last Admin: 12/07/17 18:24 Dose: 2 mg Rosuvastatin Calcium (Crestor) 2.5 mg PO HS [facility] Last Admin: 12/08/17 21:51 Dose: 2.5 mg Sevelamer Carbonate (Renvela) 2.4 gm PO TID [facility] Last Admin: 12/08/17 18:00 Dose: Not Given Vitamin B Complex/Vit C/Folic Acid (Nephro-Padma) 1 tab PO DAILY [facility] Last Admin: 12/08/17 10:38 Dose: 1 tab - Labs Labs: 12/08/17 17:24 12/08/17 17:24 PT 12.5 SECONDS (9.7-12.2) H 12/05/17 09:29 INR 1.1 12/05/17 09:29 APTT 35 SECONDS (21-34) H 12/05/17 09:29
--- NOTE | 2017-12-09 00:19 | CP.PCM.PN ---
Subjective - Date & Time of Evaluation Date of Evaluation: 12/08/17 Time of Evaluation: 07:30 - Subjective Subjective: Patient seen and evaluated Denies chest pain and dyspnea Improved heart rate Objective - Vital Signs/Intake and Output Vital Signs (last 24 hours): Temp Pulse Resp BP Pulse Ox 99.9 F H 103 H 20 124/71 93 L 12/09/17 00:00 12/09/17 00:00 12/09/17 00:00 12/09/17 00:00 12/09/17 00:00 - Medications Medications: Current Medications Acetaminophen (Tylenol 325mg Tab) 650 mg PO Q6 PRN PRN Reason: Fever >100.4 F Last Admin: 12/08/17 10:38 Dose: 650 mg Allopurinol (Zyloprim) 100 mg PO DAILY [facility] Last Admin: 12/08/17 10:38 Dose: 100 mg Clonazepam (Klonopin) 0.5 mg PO BID PRN PRN Reason: Anxiety Last Admin: 12/06/17 17:21 Dose: 0.5 mg Dextrose (Dextrose 50% Inj) 0 ml IV STAT PRN; Protocol PRN Reason: Hypoglycemia Protocol Dextrose (Glutose 15) 0 gm PO ONCE PRN; Protocol PRN Reason: Hypoglycemia Protocol Epoetin Mario Alberto (Procrit) 10,000 unit IV TTS [facility] Famotidine (Pepcid) 20 mg PO DAILY [facility] Last Admin: 12/08/17 10:38 Dose: 20 mg Gabapentin (Neurontin) 100 mg PO HS [facility] Heparin Sodium (Porcine) (Heparin) 2,000 units IVP TTS [facility] Last Admin: 12/06/17 10:39 Dose: 2,000 units Heparin Sodium (Porcine) (Heparin) 5,000 units SC Q12 [facility] Last Admin: 12/08/17 21:58 Dose: 5,000 units Hydralazine HCl (Apresoline) 25 mg PO BID [facility] Last Admin: 12/08/17 18:00 Dose: Not Given Cefepime HCl 1 gm/ Dextrose 50 mls @ 100 mls/hr IVPB Q12H [facility]; Protocol Last Admin: 12/08/17 21:51 Dose: 100 mls/hr Vancomycin/Sodium Chloride (Vancomycin 1 Gm/Ns 200 Ml) 1 gm in 200 mls @ 166.7 mls/hr IVPB TTS [facility]; Protocol Stop: 12/11/17 10:01 Last Admin: 12/06/17 13:56 Dose: 166.7 mls/hr Dextrose (Dextrose 5% In Water 1000 Ml) 1,000 mls @ 0 mls/hr IV .Q0M PRN; Protocol PRN Reason: Hypoglycemia Protocol Moxifloxacin HCl (Avelox Iv 400mg/250ml Ns) 400 mg in 250 mls @ 167 mls/hr IVPB Q24H [facility]; Protocol Last Admin: 12/08/17 16:36 Dose: 167 mls/hr Insulin Aspart (Novolog) 0 unit SC ACHS [facility]; Protocol Last Admin: 12/08/17 21:51 Dose: Not Given Lidocaine (Lidoderm) 1 ea TD DAILY [facility] Last Admin: 12/08/17 10:39 Dose: 1 ea Morphine Sulfate (Morphine) 2 mg IVP Q4H PRN PRN Reason: Pain, moderate (4-7) Last Admin: 12/07/17 18:24 Dose: 2 mg Rosuvastatin Calcium (Crestor) 2.5 mg PO HS [facility] Last Admin: 12/08/17 21:51 Dose: 2.5 mg Sevelamer Carbonate (Renvela) 2.4 gm PO TID [facility] Last Admin: 12/08/17 18:00 Dose: Not Given Vitamin B Complex/Vit C/Folic Acid (Nephro-Padma) 1 tab PO DAILY [facility] Last Admin: 12/08/17 10:38 Dose: 1 tab - Labs Labs: 12/08/17 17:24 12/08/17 17:24 PT 12.5 SECONDS (9.7-12.2) H 12/05/17 09:29 INR 1.1 12/05/17 09:29 APTT 35 SECONDS (21-34) H 12/05/17 09:29
[2017-12-09] MEDS: Morphine 4 MG/ML VIAL IVP PRN ×2 (03:38→19:00)
[2017-12-09] MEDS ORDERED: Metoprolol 1 mg/ml Inj IVP ONE (04:06)
[2017-12-09] MEDS: Piperacill/Tazo 2.25gm in Dex 2.25 GM/50 ML BAG IVPB SCH ×3 (05:07→22:11)
[2017-12-09 06:07] LABS: VENOUS BLOOD GAS BASE EXCESS 1.3 mmol/L (0.0-2.0); VENOUS BLOOD GAS PCO2 47 mmHg (40-60); VENOUS BLOOD GAS PO2 40 mm/Hg (30-55); VENOUS BLOOD PH 7.37 (7.32-7.43)
--- NOTE | 2017-12-09 06:45 | PN ---
DATE: 12/08/2017 SUBJECTIVE: She is always feeling better. She is less short of breath. She is anxious. No fever. No chills. She has a low grade fever 100.3 before. She is on antibiotics, and she is responding. Her H and H dropped. She is for transfusion. Otherwise, she is much better clinically with less short of breath. PHYSICAL EXAMINATION: VITAL SIGNS: BP 116/75, pulse 103, respiratory rate 20, and temperature 98.3. LUNGS: Bilateral rales in the lung romo. CVS: S1, S2 regular. ABDOMEN: Soft, nontender. Bowel sounds are positive. ASSESSMENT: 1. Pneumonia, on Avelox. 2. Diabetes. 3. Chronic kidney disease, on hemodialysis. 4. Anemia. PLAN: Blood test. Monitor the patient. Manuel Fuentes MD
[2017-12-09] MEDS: (Novolog) Insulin Aspart, Recombinant 100 u/ml 10 ml vial SC SCH ×4 (08:15→18:52)
[2017-12-09] MEDS: Vancomycin 1 gm/NS 200 ml 1 GM/200 ML BAG IVPB SCH (09:15)
--- NOTE | 2017-12-09 09:18 | RAD ---
Chest x-ray single frontal view HISTORY: Shortness of breath. COMPARISON: 12/05/2017 Findings: Biapical pleural thickening with upper lobe granulomatous changes. Moderate to severe venous congestion. Prominent consolidative opacification in mid to lower lung zones bilaterally. Small to moderate bilateral pleural effusions bilaterally. Cardiomegaly. Enlarged ectatic aorta. Lines and tubes in stable position. Degenerative changes in the spine and shoulders. Impression: Biapical pleural thickening with upper lobe granulomatous changes. Moderate to severe venous congestion. Prominent consolidative opacification in mid to lower lung zones bilaterally. Small to moderate bilateral pleural effusions bilaterally. Cardiomegaly. Enlarged ectatic aorta. Lines and tubes in stable position.
[2017-12-09] MEDS: Lidocaine 5% Patch TD SCH ×2 (10:44→11:22)
[2017-12-09] MEDS: Multivitamin Vitamin B Complex (Nephro-Vite) Tab PO SCH ×2 (10:46→11:24)
[2017-12-09] MEDS: Sevelamer Carb 2.4 gm/Packet PO SCH ×3 (11:23→18:52)
--- NOTE | 2017-12-09 12:28 | CP.PCM.PN ---
Subjective - Date & Time of Evaluation Date of Evaluation: 12/09/17 Time of Evaluation: 12:25 - Subjective Subjective: Nephrology Consultation Note: Assessment: worsening sepsis with pneumonia and pulmonary edema acute pleuritic CP with dyspnoea no evidence of PE Diabetic chronic Kidney Disease (E11.22) Hypertensive Chronic Kidney Disease (I12.0) End stage renal disease (N18.6) dependence on hemodialysis (Z99.2) (TTS) via PC Anemia (D64.9), Hyperphosphatemia (E83.39), Secondary Hyperparathyroidism (E21.1), HTN (I12.0), obesity AMS with delirium Plan: Will plan for dialysis today. Continue with Nephrovite 1 tab/day. plan for isolated UF tomorrow PRBC as needed for anemia. on JOHNATHAN with dialysis as last Hb 7.6. plan for 1 unit PRBC 12/09/17 Continue with phos binders, check phos level BP control with meds as ordered. Patient not on RAAS cassie, may add if BP high. stop hydralazine as BP low Glycemic control, Dialysis consistent diet Further work up/management as per primary team Dose meds/antibiotics (if needed) for ESRD status. Avoid fleets enema/magnesium based laxatives. ID following, pt started on IV abx stopped gabapentin due to delirious state. Thanks for allowing me to participate in care of your patient. Will follow patient with you. Please call if any Qs. had d/w team Dr Sea Quintero Office: [phone] Chief Complaint; chest pain HPI: Pt is a67 F with hx of ESRD on hemodialysis (TTS) via PC , last dialysis thur, chronic anemia, hyperphosphatemia, secondary hyperparathyroidism, Diabetes Mellitus, hypertension morbid obesity presented with complaints of Rt chest pain acute since last night which was moderate to severe. no trauma as per pt. also wit fever and SOB. recent PC exchange due to dysfxn and left AVF placed. Renal consult requested for ESRD management. pt feels sick with SOB, chest pain which is worse on deep breaths ROS: pt confused and delirious, unable to provide hx Physical Examination: General Appearance: uncomfortable, in no acute respiratory distress, co- operative . Vitals reviewed and noted as below Head; Atraumatic, normocephalic ENT: no ulcers no thrush. Tongue is midline. Oropharynx: no rash or ulcers. EYES: Pupils are equal, round and reactive to light accommodation. Eye muscles and extraocular movement intact. Sclera is anicteric. Neck; supple no lymphadenopathy, no thyromegaly or bruit Lungs: Improved respiratory rate/effort. Breath sounds bilateral decreased at bases with crackles. no rash Heart: Increased rate. s1s2 normal. No rub or gallop. Extremities: no edema. No varicose veins Neurological: Patient is delirious and confused Skin: Warm and dry. Normal turgor. No rash. Palpitation: Normal elasticity for age Abdomen: Abdomen is soft. Bowel sounds +. There is no abdominal tenderness, no guarding/rigidity or organomegaly Psych: unable MSK: no joint tenderness or swelling. Digits and nails normal, no deformity : kidney or bladder not palpable Access: PC and left AVF maturing Labs/imaging reviewed. Past medical history, past surgical history, family history, social history, allergy reviewed and noted as below Family Hx: no hx of CKD. Non contributory Objective - Vital Signs/Intake and Output Vital Signs (last 24 hours): Temp Pulse Resp BP Pulse Ox 98.3 F 108 H 20 105/66 98 12/09/17 07:30 12/09/17 07:30 12/09/17 07:30 12/09/17 07:30 12/09/17 07:30 - Medications Medications: Current Medications Acetaminophen (Tylenol 325mg Tab) 650 mg PO Q6 PRN PRN Reason: Fever >100.4 F Last Admin: 12/08/17 10:38 Dose: 650 mg Allopurinol (Zyloprim) 100 mg PO DAILY [facility] Last Admin: 12/09/17 11:24 Dose: Not Given Clonazepam (Klonopin) 0.5 mg PO BID PRN PRN Reason: Anxiety Last Admin: 12/06/17 17:21 Dose: 0.5 mg Dextrose (Dextrose 50% Inj) 0 ml IV STAT PRN; Protocol PRN Reason: Hypoglycemia Protocol Dextrose (Glutose 15) 0 gm PO ONCE PRN; Protocol PRN Reason: Hypoglycemia Protocol Epoetin Mario Alberto (Procrit) 10,000 unit IV TTS [facility] Famotidine (Pepcid) 20 mg PO DAILY [facility] Last Admin: 12/09/17 11:24 Dose: Not Given Heparin Sodium (Porcine) (Heparin) 2,000 units IVP TTS [facility] Last Admin: 12/06/17 10:39 Dose: 2,000 units Heparin Sodium (Porcine) (Heparin) 5,000 units SC Q12 [facility] Last Admin: 12/09/17 10:46 Dose: 5,000 units Cefepime HCl 1 gm/ Dextrose 50 mls @ 100 mls/hr IVPB Q12H [facility]; Protocol Last Admin: 12/09/17 10:44 Dose: 100 mls/hr Vancomycin/Sodium Chloride (Vancomycin 1 Gm/Ns 200 Ml) 1 gm in 200 mls @ 166.7 mls/hr IVPB TTS [facility]; Protocol Stop: 12/11/17 10:01 Last Admin: 12/09/17 09:15 Dose: 166.7 mls/hr Dextrose (Dextrose 5% In Water 1000 Ml) 1,000 mls @ 0 mls/hr IV .Q0M PRN; Protocol PRN Reason: Hypoglycemia Protocol Moxifloxacin HCl (Avelox Iv 400mg/250ml Ns) 400 mg in 250 mls @ 167 mls/hr IVPB Q24H [facility]; Protocol Last Admin: 12/08/17 16:36 Dose: 167 mls/hr Piperacillin Sod/Tazobactam Sod (Zosyn 2.25 Gm Iv Premix) 2.25 gm in 50 mls @ 100 mls/hr IVPB Q8H [facility]; Protocol Last Admin: 12/09/17 05:07 Dose: 100 mls/hr Insulin Aspart (Novolog) 0 unit SC ACHS [facility]; Protocol Last Admin: 12/09/17 11:50 Dose: Not Given Lidocaine (Lidoderm) 1 ea TD DAILY [facility] Last Admin: 12/09/17 11:22 Dose: Not Given Morphine Sulfate (Morphine) 2 mg IVP Q4H PRN PRN Reason: Pain, moderate (4-7) Last Admin: 12/09/17 03:38 Dose: 2 mg Rosuvastatin Calcium (Crestor) 2.5 mg PO HS [facility] Last Admin: 12/08/17 21:51 Dose: 2.5 mg Sevelamer Carbonate (Renvela) 2.4 gm PO TID [facility] Last Admin: 12/09/17 11:23 Dose: Not Given Vitamin B Complex/Vit C/Folic Acid (Nephro-Padma) 1 tab PO DAILY [facility] Last Admin: 12/09/17 11:24 Dose: Not Given - Labs Labs: 12/08/17 17:24 12/08/17 17:24 PT 12.5 SECONDS (9.7-12.2) H 12/05/17 09:29 INR 1.1 12/05/17 09:29 APTT 35 SECONDS (21-34) H 12/05/17 09:29
--- NOTE | 2017-12-09 13:14 | CP.PCM.PN ---
Subjective - Date & Time of Evaluation Date of Evaluation: 12/09/17 Time of Evaluation: 09:00 - Subjective Subjective: no new cultures less sob Objective - Vital Signs/Intake and Output Vital Signs (last 24 hours): Temp Pulse Resp BP Pulse Ox 98.3 F 105 H 20 105/66 98 12/09/17 07:30 12/09/17 12:35 12/09/17 07:30 12/09/17 07:30 12/09/17 07:30 - Medications Medications: Current Medications Acetaminophen (Tylenol 325mg Tab) 650 mg PO Q6 PRN PRN Reason: Fever >100.4 F Last Admin: 12/08/17 10:38 Dose: 650 mg Allopurinol (Zyloprim) 100 mg PO DAILY [facility] Last Admin: 12/09/17 11:24 Dose: Not Given Clonazepam (Klonopin) 0.5 mg PO BID PRN PRN Reason: Anxiety Last Admin: 12/06/17 17:21 Dose: 0.5 mg Dextrose (Dextrose 50% Inj) 0 ml IV STAT PRN; Protocol PRN Reason: Hypoglycemia Protocol Dextrose (Glutose 15) 0 gm PO ONCE PRN; Protocol PRN Reason: Hypoglycemia Protocol Epoetin Mario Alberto (Procrit) 10,000 unit IV TTS [facility] Famotidine (Pepcid) 20 mg PO DAILY [facility] Last Admin: 12/09/17 11:24 Dose: Not Given Heparin Sodium (Porcine) (Heparin) 2,000 units IVP TTS [facility] Last Admin: 12/06/17 10:39 Dose: 2,000 units Heparin Sodium (Porcine) (Heparin) 5,000 units SC Q12 [facility] Last Admin: 12/09/17 10:46 Dose: 5,000 units Cefepime HCl 1 gm/ Dextrose 50 mls @ 100 mls/hr IVPB Q12H [facility]; Protocol Last Admin: 12/09/17 10:44 Dose: 100 mls/hr Vancomycin/Sodium Chloride (Vancomycin 1 Gm/Ns 200 Ml) 1 gm in 200 mls @ 166.7 mls/hr IVPB TTS [facility]; Protocol Stop: 12/11/17 10:01 Last Admin: 12/09/17 09:15 Dose: 166.7 mls/hr Dextrose (Dextrose 5% In Water 1000 Ml) 1,000 mls @ 0 mls/hr IV .Q0M PRN; Protocol PRN Reason: Hypoglycemia Protocol Moxifloxacin HCl (Avelox Iv 400mg/250ml Ns) 400 mg in 250 mls @ 167 mls/hr IVPB Q24H [facility]; Protocol Last Admin: 12/08/17 16:36 Dose: 167 mls/hr Piperacillin Sod/Tazobactam Sod (Zosyn 2.25 Gm Iv Premix) 2.25 gm in 50 mls @ 100 mls/hr IVPB Q8H [facility]; Protocol Last Admin: 12/09/17 12:46 Dose: Not Given Insulin Aspart (Novolog) 0 unit SC ACHS [facility]; Protocol Last Admin: 12/09/17 11:50 Dose: Not Given Lidocaine (Lidoderm) 1 ea TD DAILY [facility] Last Admin: 12/09/17 11:22 Dose: Not Given Morphine Sulfate (Morphine) 2 mg IVP Q4H PRN PRN Reason: Pain, moderate (4-7) Last Admin: 12/09/17 03:38 Dose: 2 mg Rosuvastatin Calcium (Crestor) 2.5 mg PO HS [facility] Last Admin: 12/08/17 21:51 Dose: 2.5 mg Sevelamer Carbonate (Renvela) 2.4 gm PO TID [facility] Last Admin: 12/09/17 11:23 Dose: Not Given Vitamin B Complex/Vit C/Folic Acid (Nephro-Padma) 1 tab PO DAILY [facility] Last Admin: 12/09/17 11:24 Dose: Not Given - Labs Labs: 12/08/17 17:24 12/08/17 17:24 PT 12.5 SECONDS (9.7-12.2) H 12/05/17 09:29 INR 1.1 12/05/17 09:29 APTT 35 SECONDS (21-34) H 12/05/17 09:29 - Constitutional Appears: Non-toxic, Chronically Ill - Head Exam Head Exam: NORMOCEPHALIC - Eye Exam Eye Exam: PERRL - ENT Exam ENT Exam: Mucous Membranes Dry - Neck Exam Neck Exam: absent: Lymphadenopathy - Respiratory Exam Respiratory Exam: Decreased Breath Sounds - Cardiovascular Exam Cardiovascular Exam: REGULAR RHYTHM - GI/Abdominal Exam GI & Abdominal Exam: Distended - Rectal Exam Rectal Exam: Deferred - Exam Exam: NORMAL INSPECTION Assessment and Plan (1) End stage renal failure on dialysis Status: Acute (2) Chest pain Status: Acute (3) Pneumonia Status: Acute (4) Fever Status: Acute (5) SOB (shortness of breath) Status: Acute
[2017-12-09] MEDS: Epoetin Alfa 10,000 unit/ml Dialysis IV SCH (15:20)
--- NOTE | 2017-12-09 17:13 | CP.PCM.PN ---
Subjective - Date & Time of Evaluation Date of Evaluation: 12/09/17 Time of Evaluation: 12:20 - Subjective Subjective: Pt was seen and examined while receiving Dialysis. Pt appears lethargic and confusion. Pt's breathing is improving, however, still appears short of breath. Objective - Vital Signs/Intake and Output Vital Signs (last 24 hours): Temp Pulse Resp BP Pulse Ox 98.3 F 109 H 20 180/79 H 98 12/09/17 16:50 12/09/17 16:50 12/09/17 16:50 12/09/17 16:50 12/09/17 07:30 Intake and Output: 12/09/17 12/09/17 06:59 18:59 Intake Total 385 Balance 385 - Medications Medications: Current Medications Acetaminophen (Tylenol 325mg Tab) 650 mg PO Q6 PRN PRN Reason: Fever >100.4 F Last Admin: 12/09/17 15:21 Dose: 650 mg Allopurinol (Zyloprim) 100 mg PO DAILY [facility] Last Admin: 12/09/17 11:24 Dose: Not Given Clonazepam (Klonopin) 0.5 mg PO BID PRN PRN Reason: Anxiety Last Admin: 12/06/17 17:21 Dose: 0.5 mg Dextrose (Dextrose 50% Inj) 0 ml IV STAT PRN; Protocol PRN Reason: Hypoglycemia Protocol Dextrose (Glutose 15) 0 gm PO ONCE PRN; Protocol PRN Reason: Hypoglycemia Protocol Epoetin Mario Alberto (Procrit) 10,000 unit IV TTS [facility] Last Admin: 12/09/17 15:20 Dose: 10,000 unit Famotidine (Pepcid) 20 mg PO DAILY [facility] Last Admin: 12/09/17 11:24 Dose: Not Given Heparin Sodium (Porcine) (Heparin) 2,000 units IVP TTS [facility] Last Admin: 12/09/17 15:20 Dose: 2,000 units Heparin Sodium (Porcine) (Heparin) 5,000 units SC Q12 [facility] Last Admin: 12/09/17 10:46 Dose: 5,000 units Vancomycin/Sodium Chloride (Vancomycin 1 Gm/Ns 200 Ml) 1 gm in 200 mls @ 166.7 mls/hr IVPB TTS [facility]; Protocol Stop: 12/11/17 10:01 Last Admin: 12/09/17 09:15 Dose: 166.7 mls/hr Dextrose (Dextrose 5% In Water 1000 Ml) 1,000 mls @ 0 mls/hr IV .Q0M PRN; Protocol PRN Reason: Hypoglycemia Protocol Moxifloxacin HCl (Avelox Iv 400mg/250ml Ns) 400 mg in 250 mls @ 167 mls/hr IVPB Q24H [facility]; Protocol Last Admin: 12/08/17 16:36 Dose: 167 mls/hr Piperacillin Sod/Tazobactam Sod (Zosyn 2.25 Gm Iv Premix) 2.25 gm in 50 mls @ 100 mls/hr IVPB Q8H [facility]; Protocol Last Admin: 12/09/17 12:46 Dose: Not Given Insulin Aspart (Novolog) 0 unit SC ACHS [facility]; Protocol Last Admin: 12/09/17 11:50 Dose: Not Given Lidocaine (Lidoderm) 1 ea TD DAILY [facility] Last Admin: 12/09/17 11:22 Dose: Not Given Morphine Sulfate (Morphine) 2 mg IVP Q4H PRN PRN Reason: Pain, moderate (4-7) Last Admin: 12/09/17 03:38 Dose: 2 mg Rosuvastatin Calcium (Crestor) 2.5 mg PO HS [facility] Last Admin: 12/08/17 21:51 Dose: 2.5 mg Sevelamer Carbonate (Renvela) 2.4 gm PO TID [facility] Last Admin: 12/09/17 14:23 Dose: Not Given Vitamin B Complex/Vit C/Folic Acid (Nephro-Padma) 1 tab PO DAILY [facility] Last Admin: 12/09/17 11:24 Dose: Not Given - Labs Labs: 12/08/17 17:24 12/08/17 17:24 PT 12.5 SECONDS (9.7-12.2) H 12/05/17 09:29 INR 1.1 12/05/17 09:29 APTT 35 SECONDS (21-34) H 12/05/17 09:29 - Head Exam Head Exam: ATRAUMATIC, NORMOCEPHALIC - ENT Exam ENT Exam: Mucous Membranes Moist - Respiratory Exam Respiratory Exam: Decreased Breath Sounds - Cardiovascular Exam Cardiovascular Exam: REGULAR RHYTHM - GI/Abdominal Exam GI & Abdominal Exam: Soft Assessment and Plan (1) Pneumonia Assessment & Plan: Continue antibiotics and present care Follow up ABG Follow-up chest x-ray Hemodialysis case discussed with nephrology Status: Acute (2) Chest pain Status: Acute (3) End stage renal failure on dialysis Status: Acute
--- NOTE | 2017-12-09 18:14 | CT ---
Date of service: 12/09/2017 PROCEDURE: CT HEAD WITHOUT CONTRAST. HISTORY: ams COMPARISON: None available. TECHNIQUE: Axial computed tomography images were obtained through the head/brain without intravenous contrast. Radiation dose: Total exam DLP = 1404.57 mGy-cm. This CT exam was performed using one or more of the following dose reduction techniques: Automated exposure control, adjustment of the mA and/or kV according to patient size, and/or use of iterative reconstruction technique. FINDINGS: HEMORRHAGE: No intracranial hemorrhage. BRAIN: No mass effect or edema. Intracranial atherosclerosis. Scattered periventricular and subcortical white matter hypodensities, which are nonspecific, but often seen with chronic microvascular ischemic disease. Small hypodensity noted within the left basal ganglia may reflect ischemic change. Please note that MRI with diffusion imaging is more sensitive in the detection of acute ischemic event. VENTRICLES: No hydrocephalus. CALVARIUM: Unremarkable. PARANASAL SINUSES: Unremarkable as visualized. No significant inflammatory changes. MASTOID AIR CELLS: Unremarkable as visualized. No inflammatory changes. OTHER FINDINGS: None. IMPRESSION: Scattered periventricular and subcortical white matter hypodensities, which are nonspecific, but often seen with chronic microvascular ischemic disease. Small hypodensity noted within the left basal ganglia may reflect ischemic change. Please note that MRI with diffusion imaging is more sensitive in the detection of acute ischemic event.
[2017-12-09] MEDS: Moxifloxacin IV 400mg/250ml NS 400 MG/250 ML BAG IVPB SCH (18:51)
[2017-12-09] MEDS: Rosuvastatin Calcium 2.5 mg Tab PO SCH (22:11)
--- NOTE | 2017-12-09 22:25 | CP.PCM.PN ---
Objective - Vital Signs/Intake and Output Vital Signs (last 24 hours): Temp Pulse Resp BP Pulse Ox 98.2 F 105 H 20 148/88 95 12/09/17 18:14 12/09/17 18:14 12/09/17 18:14 12/09/17 18:14 12/09/17 18:14 Intake and Output: 12/09/17 12/10/17 18:59 06:59 Intake Total 730 Balance 730 - Medications Medications: Current Medications Acetaminophen (Tylenol 325mg Tab) 650 mg PO Q6 PRN PRN Reason: Fever >100.4 F Last Admin: 12/09/17 15:21 Dose: 650 mg Allopurinol (Zyloprim) 100 mg PO DAILY [facility] Last Admin: 12/09/17 11:24 Dose: Not Given Clonazepam (Klonopin) 0.5 mg PO BID PRN PRN Reason: Anxiety Last Admin: 12/06/17 17:21 Dose: 0.5 mg Dextrose (Dextrose 50% Inj) 0 ml IV STAT PRN; Protocol PRN Reason: Hypoglycemia Protocol Dextrose (Glutose 15) 0 gm PO ONCE PRN; Protocol PRN Reason: Hypoglycemia Protocol Epoetin Mario Alberto (Procrit) 10,000 unit IV TTS [facility] Last Admin: 12/09/17 15:20 Dose: 10,000 unit Famotidine (Pepcid) 20 mg PO DAILY [facility] Last Admin: 12/09/17 11:24 Dose: Not Given Heparin Sodium (Porcine) (Heparin) 2,000 units IVP TTS [facility] Last Admin: 12/09/17 15:20 Dose: 2,000 units Heparin Sodium (Porcine) (Heparin) 5,000 units SC Q12 [facility] Last Admin: 12/09/17 22:11 Dose: 5,000 units Vancomycin/Sodium Chloride (Vancomycin 1 Gm/Ns 200 Ml) 1 gm in 200 mls @ 166.7 mls/hr IVPB TTS [facility]; Protocol Stop: 12/11/17 10:01 Last Admin: 12/09/17 09:15 Dose: 166.7 mls/hr Dextrose (Dextrose 5% In Water 1000 Ml) 1,000 mls @ 0 mls/hr IV .Q0M PRN; Protocol PRN Reason: Hypoglycemia Protocol Moxifloxacin HCl (Avelox Iv 400mg/250ml Ns) 400 mg in 250 mls @ 167 mls/hr IVPB Q24H [facility]; Protocol Last Admin: 12/09/17 18:51 Dose: 167 mls/hr Piperacillin Sod/Tazobactam Sod (Zosyn 2.25 Gm Iv Premix) 2.25 gm in 50 mls @ 100 mls/hr IVPB Q8H [facility]; Protocol Last Admin: 12/09/17 22:11 Dose: 100 mls/hr Insulin Aspart (Novolog) 0 unit SC ACHS [facility]; Protocol Last Admin: 12/09/17 18:52 Dose: Not Given Lidocaine (Lidoderm) 1 ea TD DAILY [facility] Last Admin: 12/09/17 11:22 Dose: Not Given Morphine Sulfate (Morphine) 2 mg IVP Q4H PRN PRN Reason: Pain, moderate (4-7) Last Admin: 12/09/17 19:00 Dose: 2 mg Rosuvastatin Calcium (Crestor) 2.5 mg PO HS [facility] Last Admin: 12/09/17 22:11 Dose: 2.5 mg Sevelamer Carbonate (Renvela) 2.4 gm PO TID [facility] Last Admin: 12/09/17 18:52 Dose: 2.4 gm Vitamin B Complex/Vit C/Folic Acid (Nephro-Padma) 1 tab PO DAILY [facility] Last Admin: 12/09/17 11:24 Dose: Not Given - Labs Labs: 12/08/17 17:24 12/08/17 17:24 PT 12.5 SECONDS (9.7-12.2) H 12/05/17 09:29 INR 1.1 12/05/17 09:29 APTT 35 SECONDS (21-34) H 12/05/17 09:29
--- NOTE | 2017-12-09 22:51 | CP.PCM.PN ---
Subjective - Date & Time of Evaluation Date of Evaluation: 12/09/17 Time of Evaluation: 16:30 - Subjective Subjective: Patient seen and evaluated Feels weak Hx Pneumococcal Vaccination: No Review Of Systems Except As Marked, All Systems Reviewed And Found Negative. Constitutional: Positive for: Fever Cardiovascular: Positive for: Chest Pain (chest wall). Negative for: Palpitations, Light Headedness Respiratory: Positive for: Shortness of Breath. Negative for: Cough, Sputum Gastrointestinal: Negative for: Nausea, Vomiting, Abdominal Pain Physical Exam - Physical Exam Appears: Non-toxic, No Acute Distress Skin: Normal Color, Warm, Dry Head: Atraumatic, Normacephalic Eye(s): bilateral: Normal Inspection Oral Mucosa: Moist Neck: Normal ROM, Supple Chest: Symmetrical, No Tenderness, Other (catheter to right anterior chest wall) Cardiovascular: Rhythm Regular, No Murmur Respiratory: No Accessory Muscle Use, Rales (bilateral bases), No Rhonchi, No Wheezing Gastrointestinal/Abdominal: Soft, No Tenderness Extremity: Normal ROM, Other (Left arm AV fistula) Neurological/Psych: Oriented x3, Normal Speech Assessment & Plan - Assessment and Plan (Free Text) Assessment: Assessment and Plan (1) End stage renal failure on dialysis Status: Acute (2) Chest pain and Dyspnea Status: Acute R/O CAD ECHO in am (3) Pneumonia Status: Acute On antibiotics (4) Fever Status: Acute (5) SOB (shortness of breath) Status: Acute No evidence of PE ECHO: Normal EF Will add Cardizem for tachycardia and HTN Objective - Vital Signs/Intake and Output Vital Signs (last 24 hours): Temp Pulse Resp BP Pulse Ox 98.2 F 105 H 20 148/88 95 12/09/17 18:14 12/09/17 18:14 12/09/17 18:14 12/09/17 18:14 12/09/17 18:14 Intake and Output: 12/09/17 12/10/17 18:59 06:59 Intake Total 730 Balance 730 - Medications Medications: Current Medications Acetaminophen (Tylenol 325mg Tab) 650 mg PO Q6 PRN PRN Reason: Fever >100.4 F Last Admin: 12/09/17 15:21 Dose: 650 mg Allopurinol (Zyloprim) 100 mg PO DAILY [facility] Last Admin: 12/09/17 11:24 Dose: Not Given Clonazepam (Klonopin) 0.5 mg PO BID PRN PRN Reason: Anxiety Last Admin: 12/06/17 17:21 Dose: 0.5 mg Dextrose (Dextrose 50% Inj) 0 ml IV STAT PRN; Protocol PRN Reason: Hypoglycemia Protocol Dextrose (Glutose 15) 0 gm PO ONCE PRN; Protocol PRN Reason: Hypoglycemia Protocol Epoetin Mario Alberto (Procrit) 10,000 unit IV TTS [facility] Last Admin: 12/09/17 15:20 Dose: 10,000 unit Famotidine (Pepcid) 20 mg PO DAILY [facility] Last Admin: 12/09/17 11:24 Dose: Not Given Heparin Sodium (Porcine) (Heparin) 2,000 units IVP TTS [facility] Last Admin: 12/09/17 15:20 Dose: 2,000 units Heparin Sodium (Porcine) (Heparin) 5,000 units SC Q12 [facility] Last Admin: 12/09/17 22:11 Dose: 5,000 units Vancomycin/Sodium Chloride (Vancomycin 1 Gm/Ns 200 Ml) 1 gm in 200 mls @ 166.7 mls/hr IVPB TTS [facility]; Protocol Stop: 12/11/17 10:01 Last Admin: 12/09/17 09:15 Dose: 166.7 mls/hr Dextrose (Dextrose 5% In Water 1000 Ml) 1,000 mls @ 0 mls/hr IV .Q0M PRN; Protocol PRN Reason: Hypoglycemia Protocol Moxifloxacin HCl (Avelox Iv 400mg/250ml Ns) 400 mg in 250 mls @ 167 mls/hr IVPB Q24H [facility]; Protocol Last Admin: 12/09/17 18:51 Dose: 167 mls/hr Piperacillin Sod/Tazobactam Sod (Zosyn 2.25 Gm Iv Premix) 2.25 gm in 50 mls @ 100 mls/hr IVPB Q8H [facility]; Protocol Last Admin: 12/09/17 22:11 Dose: 100 mls/hr Insulin Aspart (Novolog) 0 unit SC ACHS [facility]; Protocol Last Admin: 12/09/17 18:52 Dose: Not Given Lidocaine (Lidoderm) 1 ea TD DAILY [facility] Last Admin: 12/09/17 11:22 Dose: Not Given Morphine Sulfate (Morphine) 2 mg IVP Q4H PRN PRN Reason: Pain, moderate (4-7) Last Admin: 12/09/17 19:00 Dose: 2 mg Rosuvastatin Calcium (Crestor) 2.5 mg PO HS [facility] Last Admin: 12/09/17 22:11 Dose: 2.5 mg Sevelamer Carbonate (Renvela) 2.4 gm PO TID [facility] Last Admin: 12/09/17 18:52 Dose: 2.4 gm Vitamin B Complex/Vit C/Folic Acid (Nephro-Padma) 1 tab PO DAILY [facility] Last Admin: 12/09/17 11:24 Dose: Not Given - Labs Labs: 12/08/17 17:24 12/08/17 17:24 PT 12.5 SECONDS (9.7-12.2) H 12/05/17 09:29 INR 1.1 12/05/17 09:29 APTT 35 SECONDS (21-34) H 12/05/17 09:29
--- NOTE | 2017-12-10 02:29 | PN ---
DATE: 12/09/2017 SUBJECTIVE: Monica Mendoza is slightly anxious, and she is confused. Overall, she is improving. She is afebrile now. She is less tachycardic. Her blood pressure has picked up. She is for blood transfusion with hemodialysis. Administrative consent for hemodialysis was obtained. PHYSICAL EXAMINATION: VITAL SIGNS: BP 148/88, pulse 105, respiratory rate 20, temperature 98.2. LUNGS: Bilateral rales. CARDIOVASCULAR SYSTEM: S1 and S2, regular. ABDOMEN: Soft. ASSESSMENT: 1. Pneumonia. 2. Altered mental status which is most likely due to toxic metabolic encephalopathy. 3. End-stage renal disease, on hemodialysis. 4. Hypertension. 5. Diabetes. PLAN: Monitor the patient. Blood transfusion. Accu-Chek sliding scale if needed. We will consult Geriatric Psychiatry. Manuel Fuentes MD
[2017-12-10] MEDS: Piperacill/Tazo 2.25gm in Dex 2.25 GM/50 ML BAG IVPB SCH ×3 (04:28→19:51)
--- NOTE | 2017-12-10 07:24 | CARD ---
APPROVED REPORT Date of service: 12/08/2017 EXAM: Two-dimensional and M-mode echocardiogram with Doppler and color Doppler. Other Information INDICATION Dyspnea Chest Pain 2D DIMENSIONS IVSd1.1 (0.7-1.1cm)Aortic Root (2D)3.7 (2.0-3.7cm) LVDd5.4 (3.9-5.9cm)PWd1.3 (0.7-1.1cm) LA Pwsqqy38 (18-58mL)LVDs3.4 (2.5-4.0cm) FS (%) 37.1 %LVEF (%)66.5 (>50%) M-Mode DIMENSIONS RVDd2.56 (2.1-3.2cm)Left Atrium (MM)5.07 (2.5-4.0cm) IVSd0.78 (0.7-1.1cm)Aortic Root3.50 (2.2-3.7cm) LVDd5.98 (4.0-5.6cm)Aortic Cusp Exc.2.35 (1.5-2.0cm) PWd1.11 (0.7-1.1cm)FS (%) 40 % LVDs3.59 (2.0-3.8cm)LVEF (%)70 (>50%) Mitral Valve MV E Yxxhywer32.1cm/sMV A Vokgqpsl18.6cm/sE/A ratio0.6 TDI Lateral E' Peak V10.71cm/sMedial E' Peak V5.29cm/sE/Lateral E'5.8 E/Medial E'11.7 Tricuspid Valve TR Peak Qlnqdlfn221ma/sTR Peak Gr.[id number] LEFT VENTRICLE The left ventricle is normal size. There is borderline concentric left ventricular hypertrophy. Left ventricle systolic function is normal. The Ejection Fraction is 65-70%. There is normal LV segmental wall motion. Tissue Doppler imaging reveals abnormal left ventricular diastolic dysfunction. RIGHT VENTRICLE The right ventricle is normal size. There is normal right ventricular wall thickness. The right ventricular systolic function is normal. ATRIA The left atrium size is normal. 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 The interatrial septum is intact with no evidence for an atrial septal defect. AORTIC VALVE The aortic valve is normal in structure. No aortic regurgitation is present. There is no aortic valvular stenosis. There is no aortic valvular vegetation. MITRAL VALVE The mitral valve is normal in structure. There is no evidence of mitral valve prolapse. There is no mitral valve stenosis. There is no mitral valve regurgitation noted. TRICUSPID VALVE The tricuspid valve is normal in structure. There is trace to mild tricuspid regurgitation. Right ventricular systolic pressure is estimated at 30-40 mmHg. There is mild pulmonary hypertension. PULMONIC VALVE The pulmonic valve is not well visualized. There is no pulmonic valvular regurgitation. GREAT VESSELS The aortic root is normal in size. PERICARDIAL EFFUSION There is no significant pericardial effusion. <Conclusion> Left ventricle systolic function is normal. The Ejection Fraction is 65-70%. Diastolic dysfunction. 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 No aortic regurgitation is present. There is no mitral valve regurgitation noted. There is trace to mild tricuspid regurgitation. There is mild pulmonary hypertension. There is no pulmonic valvular regurgitation.
[2017-12-10] MEDS: (Novolog) Insulin Aspart, Recombinant 100 u/ml 10 ml vial SC SCH ×4 (07:30→22:41)
[2017-12-10] MEDS: Sevelamer Carb 2.4 gm/Packet PO SCH ×3 (10:00→19:49)
[2017-12-10] MEDS: Multivitamin Vitamin B Complex (Nephro-Vite) Tab PO SCH (10:00)
[2017-12-10] MEDS: Lidocaine 5% Patch TD SCH (10:00)
[2017-12-10] MEDS ORDERED: Epoetin Alfa 10,000 unit/ml Dialysis IV ONE (10:20)
[2017-12-10 10:35] LABS: BASO # 0.1 K/uL (0.0-0.2); BASO % 0.7 % (0.0-2.0); EOS # 0.2 K/uL (0.0-0.7); EOS % 1.3 % (0.0-4.0); HEMOGLOBIN 9.1 g/dL (11.0-16.0); LYMPH # 1.4 K/uL (1.0-4.3); MEAN CELL VOLUME 86.4 fL (81.0-99.0); MEAN CORPUSCULAR HGB CONC 32.5 g/dL (33.0-37.0); MEAN PLATELET VOLUME 10.2 fL (7.2-11.7); MONO # 2.1 K/uL (0.0-0.8); MONO % 16.9 % (0.0-10.0); NEUT # 8.6 K/uL (1.8-7.0); NEUT % 70.1 % (50.0-75.0); RBC 3.26 Mil/uL (3.80-5.20); RED CELL DISTRIBUTION WIDTH 19.1 % (11.5-14.5); WHITE BLOOD COUNT 12.3 K/uL (4.8-10.8)
[2017-12-10 11:12] LABS: ALB/GLOB RATIO 0.9 (1.0-2.1); ALBUMIN 3.2 g/dL (3.5-5.0); CALCIUM 9.1 mg/dl (8.6-10.4)
--- NOTE | 2017-12-10 13:25 | CARD ---
APPROVED REPORT Date of service: 12/09/2017 EKG Measurement Heart [id number] <Conclusion> Supraventricular tachycardia Left ventricular hypertrophy with repolarization abnormality Cannot rule out Septal infarct, age undetermined Abnormal ECG
--- NOTE | 2017-12-10 15:17 | CP.PCM.PN ---
Subjective - Date & Time of Evaluation Date of Evaluation: 12/10/17 Time of Evaluation: 15:15 - Subjective Subjective: Nephrology Consultation Note: Assessment: Stable sepsis with pneumonia and pulmonary edema acute pleuritic CP with dyspnoea no evidence of PE Diabetic chronic Kidney Disease (E11.22) Hypertensive Chronic Kidney Disease (I12.0) End stage renal disease (N18.6) dependence on hemodialysis (Z99.2) (TTS) via PC Anemia (D64.9), Hyperphosphatemia (E83.39), Secondary Hyperparathyroidism (E21.1), HTN (I12.0), obesity AMS with delirium Plan: Will plan for exta UF todya and routine HD dialysis tomorrow. Continue with Nephrovite 1 tab/day. plan for isolated UF tomorrow PRBC as needed for anemia. on JOHNATHAN with dialysis as last Hb 7.6. plan for 2 unit PRBC 12/09/17. Hb now 9.1 Continue with phos binders, check phos level BP control with meds as ordered. Patient not on RAAS cassie, may add if BP high. stop hydralazine as BP low Glycemic control, Dialysis consistent diet Further work up/management as per primary team Dose meds/antibiotics (if needed) for ESRD status. Avoid fleets enema/magnesium based laxatives. ID and pulmonary following, pt started on IV abx stopped gabapentin due to delirious state. Thanks for allowing me to participate in care of your patient. Will follow patient with you. Please call if any Qs. had d/w team Dr Sea Quintero Office: [phone] Chief Complaint; chest pain HPI: Pt is a67 F with hx of ESRD on hemodialysis (TTS) via PC , last dialysis thur, chronic anemia, hyperphosphatemia, secondary hyperparathyroidism, Diabetes Mellitus, hypertension morbid obesity presented with complaints of Rt chest pain acute since last night which was moderate to severe. no trauma as per pt. also wit fever and SOB. recent PC exchange due to dysfxn and left AVF placed. Renal consult requested for ESRD management. pt feels sick with SOB, chest pain which is worse on deep breaths ROS: pt awake and alert today. communicative. feels better Physical Examination: General Appearance: comfortable, in no acute respiratory distress, co-operative . Vitals reviewed and noted as below Head; Atraumatic, normocephalic ENT: no ulcers no thrush. Tongue is midline. Oropharynx: no rash or ulcers. EYES: Pupils are equal, round and reactive to light accommodation. Eye muscles and extraocular movement intact. Sclera is anicteric. Neck; supple no lymphadenopathy, no thyromegaly or bruit Lungs: Improved respiratory rate/effort. Breath sounds bilateral improved at bases Heart: normal rate. s1s2 normal. No rub or gallop. Extremities: no edema. No varicose veins Neurological: Patient is alert awake oriented and less confused Skin: Warm and dry. Normal turgor. No rash. Palpitation: Normal elasticity for age Abdomen: Abdomen is soft. Bowel sounds +. There is no abdominal tenderness, no guarding/rigidity or organomegaly Psych: unable MSK: no joint tenderness or swelling. Digits and nails normal, no deformity : kidney or bladder not palpable Access: PC and left AVF maturing Labs/imaging reviewed. Past medical history, past surgical history, family history, social history, allergy reviewed and noted as below Family Hx: no hx of CKD. Non contributory Objective - Vital Signs/Intake and Output Vital Signs (last 24 hours): Temp Pulse Resp BP Pulse Ox 98.2 F 96 H 20 103/65 100 12/10/17 13:25 12/10/17 13:25 12/10/17 13:25 12/10/17 13:25 12/10/17 13:25 - Medications Medications: Current Medications Acetaminophen (Tylenol 325mg Tab) 650 mg PO Q6 PRN PRN Reason: Fever >100.4 F Last Admin: 12/10/17 09:37 Dose: 650 mg Allopurinol (Zyloprim) 100 mg PO DAILY [facility] Last Admin: 12/10/17 10:00 Dose: Not Given Clonazepam (Klonopin) 0.5 mg PO BID PRN PRN Reason: Anxiety Last Admin: 12/06/17 17:21 Dose: 0.5 mg Dextrose (Dextrose 50% Inj) 0 ml IV STAT PRN; Protocol PRN Reason: Hypoglycemia Protocol Dextrose (Glutose 15) 0 gm PO ONCE PRN; Protocol PRN Reason: Hypoglycemia Protocol Diltiazem HCl (Cardizem) 60 mg PO QID [facility] Last Admin: 12/10/17 13:58 Dose: 60 mg Epoetin Mario Alberto (Procrit) 10,000 unit IV TTS [facility] Last Admin: 12/09/17 15:20 Dose: 10,000 unit Famotidine (Pepcid) 20 mg PO DAILY [facility] Last Admin: 12/10/17 10:00 Dose: Not Given Heparin Sodium (Porcine) (Heparin) 2,000 units IVP TTS [facility] Last Admin: 12/09/17 15:20 Dose: 2,000 units Heparin Sodium (Porcine) (Heparin) 5,000 units SC Q12 [facility] Last Admin: 12/10/17 10:00 Dose: Not Given Vancomycin/Sodium Chloride (Vancomycin 1 Gm/Ns 200 Ml) 1 gm in 200 mls @ 166.7 mls/hr IVPB TTS [facility]; Protocol Stop: 12/11/17 10:01 Last Admin: 12/09/17 09:15 Dose: 166.7 mls/hr Dextrose (Dextrose 5% In Water 1000 Ml) 1,000 mls @ 0 mls/hr IV .Q0M PRN; Protocol PRN Reason: Hypoglycemia Protocol Piperacillin Sod/Tazobactam Sod (Zosyn 2.25 Gm Iv Premix) 2.25 gm in 50 mls @ 100 mls/hr IVPB Q8H [facility]; Protocol Last Admin: 12/10/17 13:40 Dose: 100 mls/hr Insulin Aspart (Novolog) 0 unit SC ACHS [facility]; Protocol Last Admin: 12/10/17 12:17 Dose: Not Given Lidocaine (Lidoderm) 1 ea TD DAILY [facility] Last Admin: 12/10/17 10:00 Dose: Not Given Morphine Sulfate (Morphine) 2 mg IVP Q4H PRN PRN Reason: Pain, moderate (4-7) Last Admin: 12/09/17 19:00 Dose: 2 mg Rosuvastatin Calcium (Crestor) 2.5 mg PO HS [facility] Last Admin: 12/09/17 22:11 Dose: 2.5 mg Sevelamer Carbonate (Renvela) 2.4 gm PO TID [facility] Last Admin: 12/10/17 14:14 Dose: Not Given Vitamin B Complex/Vit C/Folic Acid (Nephro-Padma) 1 tab PO DAILY [facility] Last Admin: 12/10/17 10:00 Dose: Not Given - Labs Labs: 12/10/17 10:32 10/03/18 10:32 PT 12.5 SECONDS (9.7-12.2) H 12/05/17 09:29 INR 1.1 12/05/17 09:29 APTT 35 SECONDS (21-34) H 12/05/17 09:29
--- NOTE | 2017-12-10 16:08 | CP.PCM.PN ---
Subjective - Date & Time of Evaluation Date of Evaluation: 12/10/17 Time of Evaluation: 08:00 - Subjective Subjective: cultures neg overall improved still lethargic Objective - Vital Signs/Intake and Output Vital Signs (last 24 hours): Temp Pulse Resp BP Pulse Ox 98.2 F 96 H 20 103/65 100 12/10/17 13:25 12/10/17 13:25 12/10/17 13:25 12/10/17 13:25 12/10/17 13:25 - Medications Medications: Current Medications Acetaminophen (Tylenol 325mg Tab) 650 mg PO Q6 PRN PRN Reason: Fever >100.4 F Last Admin: 12/10/17 09:37 Dose: 650 mg Allopurinol (Zyloprim) 100 mg PO DAILY [facility] [place] Last Admin: 12/10/17 10:00 Dose: Not Given Clonazepam (Klonopin) 0.5 mg PO BID PRN PRN Reason: Anxiety Last Admin: 12/06/17 17:21 Dose: 0.5 mg Dextrose (Dextrose 50% Inj) 0 ml IV STAT PRN; Protocol PRN Reason: Hypoglycemia Protocol Dextrose (Glutose 15) 0 gm PO ONCE PRN; Protocol PRN Reason: Hypoglycemia Protocol Diltiazem HCl (Cardizem) 60 mg PO QID [facility] Last Admin: 12/10/17 13:58 Dose: 60 mg Epoetin Mario Alberto (Procrit) 10,000 unit IV TTS [facility] Last Admin: 12/09/17 15:20 Dose: 10,000 unit Famotidine (Pepcid) 20 mg PO DAILY [facility] Last Admin: 12/10/17 10:00 Dose: Not Given Heparin Sodium (Porcine) (Heparin) 2,000 units IVP TTS [facility] Last Admin: 12/09/17 15:20 Dose: 2,000 units Heparin Sodium (Porcine) (Heparin) 5,000 units SC Q12 [facility] Last Admin: 12/10/17 10:00 Dose: Not Given Vancomycin/Sodium Chloride (Vancomycin 1 Gm/Ns 200 Ml) 1 gm in 200 mls @ 166.7 mls/hr IVPB TTS [facility]; Protocol Stop: 12/11/17 10:01 Last Admin: 12/09/17 09:15 Dose: 166.7 mls/hr Dextrose (Dextrose 5% In Water 1000 Ml) 1,000 mls @ 0 mls/hr IV .Q0M PRN; Protocol PRN Reason: Hypoglycemia Protocol Piperacillin Sod/Tazobactam Sod (Zosyn 2.25 Gm Iv Premix) 2.25 gm in 50 mls @ 100 mls/hr IVPB Q8H [facility]; Protocol Last Admin: 12/10/17 13:40 Dose: 100 mls/hr Insulin Aspart (Novolog) 0 unit SC ACHS [facility]; Protocol Last Admin: 12/10/17 12:17 Dose: Not Given Lidocaine (Lidoderm) 1 ea TD DAILY [facility] Last Admin: 12/10/17 10:00 Dose: Not Given Morphine Sulfate (Morphine) 2 mg IVP Q4H PRN PRN Reason: Pain, moderate (4-7) Last Admin: 12/09/17 19:00 Dose: 2 mg Rosuvastatin Calcium (Crestor) 2.5 mg PO HS [facility] Last Admin: 12/09/17 22:11 Dose: 2.5 mg Sevelamer Carbonate (Renvela) 2.4 gm PO TID [facility] Last Admin: 12/10/17 14:14 Dose: Not Given Vitamin B Complex/Vit C/Folic Acid (Nephro-Padma) 1 tab PO DAILY [facility] Last Admin: 12/10/17 10:00 Dose: Not Given - Labs Labs: 12/10/17 10:32 12/10/17 10:32 PT 12.5 SECONDS (9.7-12.2) H 12/05/17 09:29 INR 1.1 12/05/17 09:29 APTT 35 SECONDS (21-34) H 12/05/17 09:29 - Constitutional Appears: Chronically Ill - Head Exam Head Exam: NORMOCEPHALIC - Eye Exam Eye Exam: PERRL - ENT Exam ENT Exam: Mucous Membranes Dry - Neck Exam Neck Exam: absent: Thyromegaly - Respiratory Exam Respiratory Exam: Decreased Breath Sounds - Cardiovascular Exam Cardiovascular Exam: REGULAR RHYTHM - GI/Abdominal Exam GI & Abdominal Exam: Distended, Soft Assessment and Plan (1) End stage renal failure on dialysis Status: Acute (2) Chest pain Status: Acute (3) Pneumonia Status: Acute (4) Fever Status: Acute (5) SOB (shortness of breath) Status: Acute
--- NOTE | 2017-12-10 16:30 | CP.PCM.PN ---
Subjective - Date & Time of Evaluation Date of Evaluation: 12/10/17 Time of Evaluation: 15:00 - Subjective Subjective: patient seen and examined Status post hemodialysis Denies shortness of breath More responsive Afebrile Objective - Vital Signs/Intake and Output Vital Signs (last 24 hours): Temp Pulse Resp BP Pulse Ox 98.2 F 96 H 20 103/65 100 12/10/17 13:25 12/10/17 13:25 12/10/17 13:25 12/10/17 13:25 12/10/17 13:25 - Medications Medications: Current Medications Acetaminophen (Tylenol 325mg Tab) 650 mg PO Q6 PRN PRN Reason: Fever >100.4 F Last Admin: 12/10/17 09:37 Dose: 650 mg Allopurinol (Zyloprim) 100 mg PO DAILY [facility] Last Admin: 12/10/17 10:00 Dose: Not Given Clonazepam (Klonopin) 0.5 mg PO BID PRN PRN Reason: Anxiety Last Admin: 12/06/17 17:21 Dose: 0.5 mg Dextrose (Dextrose 50% Inj) 0 ml IV STAT PRN; Protocol PRN Reason: Hypoglycemia Protocol Dextrose (Glutose 15) 0 gm PO ONCE PRN; Protocol PRN Reason: Hypoglycemia Protocol Diltiazem HCl (Cardizem) 60 mg PO QID [facility] Last Admin: 12/10/17 13:58 Dose: 60 mg Epoetin Mario Alberto (Procrit) 10,000 unit IV TTS [facility] Last Admin: 12/09/17 15:20 Dose: 10,000 unit Famotidine (Pepcid) 20 mg PO DAILY [facility] Last Admin: 12/10/17 10:00 Dose: Not Given Heparin Sodium (Porcine) (Heparin) 2,000 units IVP TTS [facility] Last Admin: 12/09/17 15:20 Dose: 2,000 units Heparin Sodium (Porcine) (Heparin) 5,000 units SC Q12 [facility] Last Admin: 12/10/17 10:00 Dose: Not Given Vancomycin/Sodium Chloride (Vancomycin 1 Gm/Ns 200 Ml) 1 gm in 200 mls @ 166.7 mls/hr IVPB TTS [facility]; Protocol Stop: 12/11/17 10:01 Last Admin: 12/09/17 09:15 Dose: 166.7 mls/hr Dextrose (Dextrose 5% In Water 1000 Ml) 1,000 mls @ 0 mls/hr IV .Q0M PRN; Protocol PRN Reason: Hypoglycemia Protocol Piperacillin Sod/Tazobactam Sod (Zosyn 2.25 Gm Iv Premix) 2.25 gm in 50 mls @ 100 mls/hr IVPB Q8H [facility]; Protocol Last Admin: 12/10/17 13:40 Dose: 100 mls/hr Insulin Aspart (Novolog) 0 unit SC ACHS [facility]; Protocol Last Admin: 12/10/17 12:17 Dose: Not Given Lidocaine (Lidoderm) 1 ea TD DAILY [facility] Last Admin: 12/10/17 10:00 Dose: Not Given Morphine Sulfate (Morphine) 2 mg IVP Q4H PRN PRN Reason: Pain, moderate (4-7) Last Admin: 12/09/17 19:00 Dose: 2 mg Rosuvastatin Calcium (Crestor) 2.5 mg PO HS [facility] Last Admin: 12/09/17 22:11 Dose: 2.5 mg Sevelamer Carbonate (Renvela) 2.4 gm PO TID [facility] Last Admin: 12/10/17 14:14 Dose: Not Given Vitamin B Complex/Vit C/Folic Acid (Nephro-Padma) 1 tab PO DAILY [facility] Last Admin: 12/10/17 10:00 Dose: Not Given - Labs Labs: 12/10/17 10:32 12/10/17 10:32 PT 12.5 SECONDS (9.7-12.2) H 12/05/17 09:29 INR 1.1 12/05/17 09:29 APTT 35 SECONDS (21-34) H 12/05/17 09:29 - Head Exam Head Exam: ATRAUMATIC, NORMOCEPHALIC - ENT Exam ENT Exam: Mucous Membranes Moist - Neck Exam Neck Exam: Normal Inspection - Respiratory Exam Respiratory Exam: Decreased Breath Sounds - Cardiovascular Exam Cardiovascular Exam: REGULAR RHYTHM - GI/Abdominal Exam GI & Abdominal Exam: Soft, Normal Bowel Sounds Assessment and Plan (1) Pneumonia Assessment & Plan: continue antibiotics Follow-up chest x-ray Continue hemodialysis Clinically improving Status: Acute (2) Chest pain Status: Acute (3) End stage renal failure on dialysis Status: Acute
--- NOTE | 2017-12-10 22:18 | CP.PCM.PN ---
Objective - Vital Signs/Intake and Output Vital Signs (last 24 hours): Temp Pulse Resp BP Pulse Ox 98.2 F 71 20 103/65 100 12/10/17 13:25 12/10/17 16:00 12/10/17 13:25 12/10/17 13:25 12/10/17 13:25 - Medications Medications: Current Medications Acetaminophen (Tylenol 325mg Tab) 650 mg PO Q6 PRN PRN Reason: Fever >100.4 F Last Admin: 12/10/17 09:37 Dose: 650 mg Allopurinol (Zyloprim) 100 mg PO DAILY [facility] Last Admin: 12/10/17 10:00 Dose: Not Given Clonazepam (Klonopin) 0.5 mg PO BID PRN PRN Reason: Anxiety Last Admin: 12/06/17 17:21 Dose: 0.5 mg Dextrose (Dextrose 50% Inj) 0 ml IV STAT PRN; Protocol PRN Reason: Hypoglycemia Protocol Dextrose (Glutose 15) 0 gm PO ONCE PRN; Protocol PRN Reason: Hypoglycemia Protocol Diltiazem HCl (Cardizem) 60 mg PO QID [facility] Last Admin: 12/10/17 18:30 Dose: 60 mg Epoetin Mario Alberto (Procrit) 10,000 unit IV TTS [facility] Last Admin: 12/09/17 15:20 Dose: 10,000 unit Famotidine (Pepcid) 20 mg PO DAILY [facility] Last Admin: 12/10/17 10:00 Dose: Not Given Heparin Sodium (Porcine) (Heparin) 2,000 units IVP TTS [facility] Last Admin: 12/09/17 15:20 Dose: 2,000 units Heparin Sodium (Porcine) (Heparin) 5,000 units SC Q12 [facility] Last Admin: 12/10/17 10:00 Dose: Not Given Vancomycin/Sodium Chloride (Vancomycin 1 Gm/Ns 200 Ml) 1 gm in 200 mls @ 166.7 mls/hr IVPB TTS [facility]; Protocol Stop: 12/11/17 10:01 Last Admin: 12/09/17 09:15 Dose: 166.7 mls/hr Dextrose (Dextrose 5% In Water 1000 Ml) 1,000 mls @ 0 mls/hr IV .Q0M PRN; Protocol PRN Reason: Hypoglycemia Protocol Piperacillin Sod/Tazobactam Sod (Zosyn 2.25 Gm Iv Premix) 2.25 gm in 50 mls @ 100 mls/hr IVPB Q8H [facility]; Protocol Last Admin: 12/10/17 19:51 Dose: 100 mls/hr Insulin Aspart (Novolog) 0 unit SC ACHS [facility]; Protocol Last Admin: 12/10/17 19:49 Dose: Not Given Lidocaine (Lidoderm) 1 ea TD DAILY [facility] Last Admin: 12/10/17 10:00 Dose: Not Given Morphine Sulfate (Morphine) 2 mg IVP Q4H PRN PRN Reason: Pain, moderate (4-7) Last Admin: 12/09/17 19:00 Dose: 2 mg Rosuvastatin Calcium (Crestor) 2.5 mg PO HS JULES Last Admin: 12/09/17 22:11 Dose: 2.5 mg Sevelamer Carbonate (Renvela) 2.4 gm PO TID JULES Last Admin: 12/10/17 19:49 Dose: Not Given Vitamin B Complex/Vit C/Folic Acid (Nephro-Padma) 1 tab PO DAILY [facility] Last Admin: 12/10/17 10:00 Dose: Not Given - Labs Labs: 12/10/17 10:32 12/10/17 10:32 PT 12.5 SECONDS (9.7-12.2) H 12/05/17 09:29 INR 1.1 12/05/17 09:29 APTT 35 SECONDS (21-34) H 12/05/17 09:29
--- NOTE | 2017-12-10 22:22 | CP.PCM.PN ---
Subjective - Date & Time of Evaluation Date of Evaluation: 12/10/17 Time of Evaluation: 10:10 - Subjective Subjective: Patient seen and evaluated Denies chest pain and dyspnea Review Of Systems Except As Marked, All Systems Reviewed And Found Negative. Constitutional: Positive for: Fever Cardiovascular: Positive for: Chest Pain (chest wall). Negative for: Palpitations, Light Headedness Respiratory: Positive for: Shortness of Breath. Negative for: Cough, Sputum Gastrointestinal: Negative for: Nausea, Vomiting, Abdominal Pain Physical Exam - Physical Exam Appears: Non-toxic, No Acute Distress Skin: Normal Color, Warm, Dry Head: Atraumatic, Normacephalic Eye(s): bilateral: Normal Inspection Oral Mucosa: Moist Neck: Normal ROM, Supple Chest: Symmetrical, No Tenderness, Other (catheter to right anterior chest wall) Cardiovascular: Rhythm Regular, No Murmur Respiratory: No Accessory Muscle Use, Rales (bilateral bases), No Rhonchi, No Wheezing Gastrointestinal/Abdominal: Soft, No Tenderness Extremity: Normal ROM, Other (Left arm AV fistula) Neurological/Psych: Oriented x3, Normal Speech Assessment & Plan - Assessment and Plan (Free Text) Assessment: Assessment and Plan (1) End stage renal failure on dialysis Status: Acute (2) Chest pain and Dyspnea Status: Acute R/O CAD ECHO in am (3) Pneumonia Status: Acute On antibiotics (4) Fever Status: Acute (5) SOB (shortness of breath) Status: Acute No evidence of PE ECHO: Normal EF Cardizem for tachycardia and HTN Objective - Vital Signs/Intake and Output Vital Signs (last 24 hours): Temp Pulse Resp BP Pulse Ox 98.2 F 71 20 103/65 100 12/10/17 13:25 12/10/17 16:00 12/10/17 13:25 12/10/17 13:25 12/10/17 13:25 - Medications Medications: Current Medications Acetaminophen (Tylenol 325mg Tab) 650 mg PO Q6 PRN PRN Reason: Fever >100.4 F Last Admin: 12/10/17 09:37 Dose: 650 mg Allopurinol (Zyloprim) 100 mg PO DAILY [facility] Last Admin: 12/10/17 10:00 Dose: Not Given Clonazepam (Klonopin) 0.5 mg PO BID PRN PRN Reason: Anxiety Last Admin: 12/06/17 17:21 Dose: 0.5 mg Clonazepam (Klonopin) 0.25 mg PO BID [facility] Dextrose (Dextrose 50% Inj) 0 ml IV STAT PRN; Protocol PRN Reason: Hypoglycemia Protocol Dextrose (Glutose 15) 0 gm PO ONCE PRN; Protocol PRN Reason: Hypoglycemia Protocol Diltiazem HCl (Cardizem) 60 mg PO QID [facility] Last Admin: 12/10/17 18:30 Dose: 60 mg Epoetin Mario Alberto (Procrit) 10,000 unit IV TTS [facility] Last Admin: 12/09/17 15:20 Dose: 10,000 unit Famotidine (Pepcid) 20 mg PO DAILY [facility] Last Admin: 12/10/17 10:00 Dose: Not Given Heparin Sodium (Porcine) (Heparin) 2,000 units IVP TTS [facility] Last Admin: 12/09/17 15:20 Dose: 2,000 units Heparin Sodium (Porcine) (Heparin) 5,000 units SC Q12 [facility] Last Admin: 12/10/17 10:00 Dose: Not Given Vancomycin/Sodium Chloride (Vancomycin 1 Gm/Ns 200 Ml) 1 gm in 200 mls @ 166.7 mls/hr IVPB TTS [facility]; Protocol Stop: 12/11/17 10:01 Last Admin: 12/09/17 09:15 Dose: 166.7 mls/hr Dextrose (Dextrose 5% In Water 1000 Ml) 1,000 mls @ 0 mls/hr IV .Q0M PRN; Protocol PRN Reason: Hypoglycemia Protocol Piperacillin Sod/Tazobactam Sod (Zosyn 2.25 Gm Iv Premix) 2.25 gm in 50 mls @ 100 mls/hr IVPB Q8H [facility]; Protocol Last Admin: 12/10/17 19:51 Dose: 100 mls/hr Insulin Aspart (Novolog) 0 unit SC ACHS [facility]; Protocol Last Admin: 12/10/17 19:49 Dose: Not Given Lidocaine (Lidoderm) 1 ea TD DAILY [facility] Last Admin: 12/10/17 10:00 Dose: Not Given Morphine Sulfate (Morphine) 2 mg IVP Q4H PRN PRN Reason: Pain, moderate (4-7) Last Admin: 12/09/17 19:00 Dose: 2 mg Rosuvastatin Calcium (Crestor) 2.5 mg PO HS [facility] Last Admin: 12/09/17 22:11 Dose: 2.5 mg Sevelamer Carbonate (Renvela) 2.4 gm PO TID [facility] Last Admin: 12/10/17 19:49 Dose: Not Given Vitamin B Complex/Vit C/Folic Acid (Nephro-Padma) 1 tab PO DAILY [facility] Last Admin: 12/10/17 10:00 Dose: Not Given - Labs Labs: 12/10/17 10:32 12/10/17 10:32 PT 12.5 SECONDS (9.7-12.2) H 12/05/17 09:29 INR 1.1 12/05/17 09:29 APTT 35 SECONDS (21-34) H 12/05/17 09:29
[2017-12-10] MEDS: Rosuvastatin Calcium 2.5 mg Tab PO SCH (22:40)
--- NOTE | 2017-12-11 03:50 | PN ---
DATE: 12/10/2017 SUBJECTIVE: The patient, Monica Mendoza, is better. Her hemoglobin is better. Her white cell count is better. She has no fever. She still is very anxious and slightly confused. No fever. No nausea or vomiting. PHYSICAL EXAMINATION: VITAL SIGNS: BP 103/65, pulse 96, respiratory rate 20, temperature 98.2. LUNGS: Bilateral decreased air entry. Positive bilateral crepitations. CARDIOVASCULAR SYSTEM: S1 and S2, regular. ABDOMEN: Soft. ASSESSMENT: 1. Pneumonia, bilateral. 2. Fluid overload, congestive heart failure. 3. Chronic kidney disease, on hemodialysis. 4. Diabetes. 5. Hypertension. PLAN: Continue antibiotics. Septic workup. Medical management. Monitor the patient. Manuel Fuentes MD
[2017-12-11] MEDS: Piperacill/Tazo 2.25gm in Dex 2.25 GM/50 ML BAG IVPB SCH ×3 (05:28→22:08)
[2017-12-11] MEDS: Morphine 4 MG/ML VIAL IVP PRN ×2 (06:50→13:46)
[2017-12-11] MEDS: (Novolog) Insulin Aspart, Recombinant 100 u/ml 10 ml vial SC SCH ×4 (07:49→21:37)
[2017-12-11] MEDS ORDERED: clonazePAM 0.25 MG TAB PO SCH (10:00)
[2017-12-11] MEDS: Sevelamer Carb 2.4 gm/Packet PO SCH ×3 (11:00→18:57)
[2017-12-11] MEDS: Epoetin Alfa 10,000 unit/ml Dialysis IV SCH (11:00)
[2017-12-11] MEDS: Multivitamin Vitamin B Complex (Nephro-Vite) Tab PO SCH (13:39)
[2017-12-11] MEDS: Vancomycin 1 gm/NS 200 ml 1 GM/200 ML BAG IVPB SCH (13:40)
[2017-12-11] MEDS: Lidocaine 5% Patch TD SCH (13:40)
--- NOTE | 2017-12-11 15:13 | CP.PCM.PN ---
Subjective - Date & Time of Evaluation Date of Evaluation: 12/11/17 Time of Evaluation: 15:12 - Subjective Subjective: Nephrology Consultation Note: Assessment: Stable sepsis with pneumonia and pulmonary edema acute pleuritic CP with dyspnoea no evidence of PE Diabetic chronic Kidney Disease (E11.22) Hypertensive Chronic Kidney Disease (I12.0) End stage renal disease (N18.6) dependence on hemodialysis (Z99.2) (TTS) via PC Anemia (D64.9), Hyperphosphatemia (E83.39), Secondary Hyperparathyroidism (E21.1), HTN (I12.0), obesity AMS with delirium Plan: routine HD dialysis today Continue with Nephrovite 1 tab/day. plan for isolated UF tomorrow PRBC as needed for anemia. on JOHNATHAN with dialysis as last Hb 7.6. plan for 2 unit PRBC 12/09/17. Hb now 9.1 Continue with phos binders, check phos level BP control with meds as ordered. Patient not on RAAS cassie, may add if BP high. stop hydralazine as BP low Glycemic control, Dialysis consistent diet Further work up/management as per primary team Dose meds/antibiotics (if needed) for ESRD status. Avoid fleets enema/magnesium based laxatives. ID and pulmonary following, pt started on IV abx stopped gabapentin due to delirious state. Thanks for allowing me to participate in care of your patient. Will follow patient with you. Please call if any Qs. had d/w team Dr Sea Quintero Office: [phone] Chief Complaint; chest pain HPI: Pt is a67 F with hx of ESRD on hemodialysis (TTS) via PC , last dialysis thur, chronic anemia, hyperphosphatemia, secondary hyperparathyroidism, Diabetes Mellitus, hypertension morbid obesity presented with complaints of Rt chest pain acute since last night which was moderate to severe. no trauma as per pt. also wit fever and SOB. recent PC exchange due to dysfxn and left AVF placed. Renal consult requested for ESRD management. pt feels sick with SOB, chest pain which is worse on deep breaths ROS: pt awake and alert today. communicative. feels better. chest pain better. mando sSOB Physical Examination: General Appearance: comfortable, in no acute respiratory distress, co-operative . Vitals reviewed and noted as below Head; Atraumatic, normocephalic ENT: no ulcers no thrush. Tongue is midline. Oropharynx: no rash or ulcers. EYES: Pupils are equal, round and reactive to light accommodation. Eye muscles and extraocular movement intact. Sclera is anicteric. Neck; supple no lymphadenopathy, no thyromegaly or bruit Lungs: Improved respiratory rate/effort. Breath sounds bilateral improved at bases Heart: normal rate. s1s2 normal. No rub or gallop. Extremities: no edema. No varicose veins Neurological: Patient is alert awake oriented, follow commands Skin: Warm and dry. Normal turgor. No rash. Palpitation: Normal elasticity for age Abdomen: Abdomen is soft. Bowel sounds +. There is no abdominal tenderness, no guarding/rigidity or organomegaly Psych: deferred MSK: no joint tenderness or swelling. Digits and nails normal, no deformity : kidney or bladder not palpable Access: PC and left AVF maturing Labs/imaging reviewed. Past medical history, past surgical history, family history, social history, allergy reviewed and noted as below Family Hx: no hx of CKD. Non contributory Objective - Vital Signs/Intake and Output Vital Signs (last 24 hours): Temp Pulse Resp BP Pulse Ox 97.9 F 91 H 16 126/71 96 12/11/17 13:00 12/11/17 13:00 12/11/17 09:50 12/11/17 13:00 12/11/17 13:00 Intake and Output: 12/11/17 12/11/17 06:59 18:59 Intake Total 290 Balance 290 - Medications Medications: Current Medications Acetaminophen (Tylenol 325mg Tab) 650 mg PO Q6 PRN PRN Reason: Fever >100.4 F Last Admin: 12/11/17 00:44 Dose: 650 mg Allopurinol (Zyloprim) 100 mg PO DAILY [facility] Last Admin: 12/11/17 13:39 Dose: 100 mg Clonazepam (Klonopin) 0.5 mg PO BID PRN PRN Reason: Anxiety Last Admin: 12/06/17 17:21 Dose: 0.5 mg Dextrose (Dextrose 50% Inj) 0 ml IV STAT PRN; Protocol PRN Reason: Hypoglycemia Protocol Dextrose (Glutose 15) 0 gm PO ONCE PRN; Protocol PRN Reason: Hypoglycemia Protocol Diltiazem HCl (Cardizem) 60 mg PO QID [facility] Last Admin: 12/11/17 13:38 Dose: 60 mg Epoetin Mario Alberto (Procrit) 10,000 unit IV TTS [facility] Last Admin: 12/11/17 11:00 Dose: 10,000 unit Famotidine (Pepcid) 20 mg PO DAILY [facility] Last Admin: 12/11/17 13:39 Dose: 20 mg Heparin Sodium (Porcine) (Heparin) 2,000 units IVP TTS [facility] Last Admin: 12/11/17 11:00 Dose: 2,000 units Piperacillin Sod/Tazobactam Sod (Zosyn 2.25 Gm Iv Premix) 2.25 gm in 50 mls @ 100 mls/hr IVPB Q8H [facility]; Protocol Last Admin: 12/11/17 12:00 Dose: Not Given Insulin Aspart (Novolog) 0 unit SC ACHS [facility]; Protocol Last Admin: 12/11/17 12:00 Dose: Not Given Lidocaine (Lidoderm) 1 ea TD DAILY [facility] Last Admin: 12/11/17 13:40 Dose: 1 ea Mirtazapine (Remeron) 15 mg PO HS [facility] Morphine Sulfate (Morphine) 2 mg IVP Q4H PRN PRN Reason: Pain, moderate (4-7) Last Admin: 12/11/17 13:46 Dose: 2 mg Rosuvastatin Calcium (Crestor) 2.5 mg PO HS [facility] Last Admin: 12/10/17 22:40 Dose: 2.5 mg Sevelamer Carbonate (Renvela) 2.4 gm PO TID [facility] Last Admin: 12/11/17 13:00 Dose: Not Given Vitamin B Complex/Vit C/Folic Acid (Nephro-Padma) 1 tab PO DAILY [facility] Last Admin: 12/11/17 13:39 Dose: 1 tab Zolpidem Tartrate (Ambien) 5 mg PO HS PRN PRN Reason: Insomnia - Labs Labs: 12/10/17 10:32 12/10/17 10:32 PT 12.5 SECONDS (9.7-12.2) H 12/05/17 09:29 INR 1.1 12/05/17 09:29 APTT 35 SECONDS (21-34) H 12/05/17 09:29
--- NOTE | 2017-12-11 16:30 | CP.PCM.PN ---
Subjective - Date & Time of Evaluation Date of Evaluation: 12/11/17 Time of Evaluation: 09:00 - Subjective Subjective: more alert less sob nad Objective - Vital Signs/Intake and Output Vital Signs (last 24 hours): Temp Pulse Resp BP Pulse Ox 98.8 F 90 20 100/64 98 12/11/17 15:00 12/11/17 15:00 12/11/17 15:00 12/11/17 15:00 12/11/17 15:00 Intake and Output: 12/11/17 12/11/17 06:59 18:59 Intake Total 290 Balance 290 - Medications Medications: Current Medications Acetaminophen (Tylenol 325mg Tab) 650 mg PO Q6 PRN PRN Reason: Fever >100.4 F Last Admin: 12/11/17 00:44 Dose: 650 mg Allopurinol (Zyloprim) 100 mg PO DAILY [facility] Last Admin: 12/11/17 13:39 Dose: 100 mg Clonazepam (Klonopin) 0.5 mg PO BID PRN PRN Reason: Anxiety Last Admin: 12/06/17 17:21 Dose: 0.5 mg Dextrose (Dextrose 50% Inj) 0 ml IV STAT PRN; Protocol PRN Reason: Hypoglycemia Protocol Dextrose (Glutose 15) 0 gm PO ONCE PRN; Protocol PRN Reason: Hypoglycemia Protocol Diltiazem HCl (Cardizem) 60 mg PO QID [facility] Last Admin: 12/11/17 13:38 Dose: 60 mg Epoetin Mario Alberto (Procrit) 10,000 unit IV TTS [facility] Last Admin: 12/11/17 11:00 Dose: 10,000 unit Famotidine (Pepcid) 20 mg PO DAILY [facility] Last Admin: 12/11/17 13:39 Dose: 20 mg Heparin Sodium (Porcine) (Heparin) 2,000 units IVP TTS [facility] Last Admin: 12/11/17 11:00 Dose: 2,000 units Piperacillin Sod/Tazobactam Sod (Zosyn 2.25 Gm Iv Premix) 2.25 gm in 50 mls @ 100 mls/hr IVPB Q8H [facility]; Protocol Last Admin: 12/11/17 12:00 Dose: Not Given Insulin Aspart (Novolog) 0 unit SC ACHS [facility]; Protocol Last Admin: 12/11/17 12:00 Dose: Not Given Lidocaine (Lidoderm) 1 ea TD DAILY [facility] Last Admin: 12/11/17 13:40 Dose: 1 ea Mirtazapine (Remeron) 15 mg PO HS [facility] Morphine Sulfate (Morphine) 2 mg IVP Q4H PRN PRN Reason: Pain, moderate (4-7) Last Admin: 12/11/17 13:46 Dose: 2 mg Rosuvastatin Calcium (Crestor) 2.5 mg PO HS [facility] Last Admin: 12/10/17 22:40 Dose: 2.5 mg Sevelamer Carbonate (Renvela) 2.4 gm PO TID [facility] Last Admin: 12/11/17 13:00 Dose: Not Given Vitamin B Complex/Vit C/Folic Acid (Nephro-Padma) 1 tab PO DAILY [facility] Last Admin: 12/11/17 13:39 Dose: 1 tab Zolpidem Tartrate (Ambien) 5 mg PO HS PRN PRN Reason: Insomnia - Labs Labs: 12/10/17 10:32 12/10/17 10:32 PT 12.5 SECONDS (9.7-12.2) H 12/05/17 09:29 INR 1.1 12/05/17 09:29 APTT 35 SECONDS (21-34) H 12/05/17 09:29 - Constitutional Appears: Non-toxic, Chronically Ill - Head Exam Head Exam: NORMOCEPHALIC - Eye Exam Eye Exam: PERRL - ENT Exam ENT Exam: Mucous Membranes Dry - Neck Exam Neck Exam: absent: Lymphadenopathy - Respiratory Exam Respiratory Exam: Decreased Breath Sounds - Cardiovascular Exam Cardiovascular Exam: REGULAR RHYTHM - GI/Abdominal Exam GI & Abdominal Exam: Distended, Soft - Rectal Exam Rectal Exam: Deferred - Exam Exam: NORMAL INSPECTION Assessment and Plan (1) End stage renal failure on dialysis Status: Acute (2) Chest pain Status: Acute (3) Pneumonia Status: Acute (4) Fever Status: Acute (5) SOB (shortness of breath) Status: Acute
--- NOTE | 2017-12-11 21:34 | CON ---
DATE: 12/11/2017 CHIEF COMPLAINT AND REASON FOR CONSULTATION: The patient referred by Dr. Fuentes, the patient was exhibiting anxiety and change of mental status. HISTORY OF PRESENT ILLNESS: This is a 67-year-old female who lives alone with history of end-stage renal disease, on dialysis. The patient was admitted here for shortness of breath, fever and right-sided chest wall pain. The patient referred for comanagement as the patient reports that she is getting very anxious and is not sleeping for the last three days. The patient also has very poor appetite. The patient is eating less than 20% of her meals and need to start encouraging her to eat. She states that she has not slept and feeling very anxious. She also states that Dr. Fuentes gave her something, but it is not working. The patient was given Klonopin 0.25 mg b.i.d. standing and 0.5 mg b.i.d. p.r.n., but she states she wants something to help her sleep as well as to help her anxiety. The patient is cooperative with dialysis, but states that she is feeling weak. PAST PSYCHIATRIC HISTORY: Denies any. MEDICAL HISTORY: History of hypertension, hypercholesterolemia, end-stage renal disease on dialysis, CKD. DRUG AND ALCOHOL HISTORY: Denies any. ALLERGIES: THE PATIENT HAS NO KNOWN ALLERGIES. PSYCHOSOCIAL HISTORY: The patient lives alone. She has a sister, who is helping her. MEDICATIONS: List of current medications include; Cardizem, Crestor, heparin, Klonopin 0.25 mg b.i.d. standing and 0.5 mg b.i.d. p.r.n., insulin, Procrit, Renvela, Zyloprim. LABORATORY DATA: Review of her labs; WBC is 12.3, H and H is 9.1/28.2, sodium is 139, BUN is 29 and creatinine is 5.1. REVIEW OF SYSTEMS: CONSTITUTIONAL: The patient is alert and oriented x3, but feeling weak, seen in her room, refusing to eat, she said she has no appetite, she has not slept in three days. SKIN: No diaphoresis. HEENT: No headache. No dizziness. NECK: Supple. RESPIRATORY: No dyspnea. CARDIOVASCULAR: No chest pain. GASTROINTESTINAL: Has poor appetite. EXTREMITIES: The patient is moving extremities. Gait unsteady. MUSCULOSKELETAL: Feels weak. NEUROLOGIC: Alert, oriented x3. GENITOURINARY: No dysuria. PHYSICAL EXAMINATION: VITAL SIGNS: Temperature is 98.1, pulse 90, blood pressure 116/66, respirations 18, oxygen saturation is 95%. MENTAL STATUS: An elderly female who is 5 feet 10 inch, weighs 267 pounds, obese. Mood is dysphoric, anxious, somatic. Affect is reactive. Speech is spontaneous. Thought process is coherent. Thought content, the patient states she cannot sleep and she has no appetite. The patient states that she is feeling weak. Has been compliant with dialysis. No suicidal or homicidal ideation. Attention and memory seem to be fair. Insight and judgement fair. Impulse control is fair. IMPRESSION: Anxiety disorder, not otherwise specified. Mood disorder secondary to medical problems as well as history of end-stage renal disease on dialysis. PLAN AND RECOMMENDATION: The patient was seen, meds reviewed. We will change the patient's medications as follows; we will discontinue the 0.25 mg b.i.d. standing of Klonopin, but may have Klonopin 0.5 mg b.i.d. p.r.n. and then we will give Ambien 5 mg at bedtime p.r.n. for insomnia and gave her Remeron 15 mg at bedtime to improve her appetite. Continue dialysis as ordered. Also, we will monitor her p.o. intake. Thank you very much for the consult. Nathaniel Trinh MD
--- NOTE | 2017-12-11 21:55 | CP.PCM.PN ---
Subjective - Subjective Subjective: dictated Objective - Vital Signs/Intake and Output Vital Signs (last 24 hours): Temp Pulse Resp BP Pulse Ox 98.8 F 92 H 20 100/64 98 12/11/17 15:00 12/11/17 16:10 12/11/17 15:00 12/11/17 15:00 12/11/17 15:00 - Medications Medications: Current Medications Acetaminophen (Tylenol 325mg Tab) 650 mg PO Q6 PRN PRN Reason: Fever >100.4 F Last Admin: 12/11/17 00:44 Dose: 650 mg Allopurinol (Zyloprim) 100 mg PO DAILY [facility] Last Admin: 12/11/17 13:39 Dose: 100 mg Clonazepam (Klonopin) 0.5 mg PO BID PRN PRN Reason: Anxiety Last Admin: 12/06/17 17:21 Dose: 0.5 mg Dextrose (Dextrose 50% Inj) 0 ml IV STAT PRN; Protocol PRN Reason: Hypoglycemia Protocol Dextrose (Glutose 15) 0 gm PO ONCE PRN; Protocol PRN Reason: Hypoglycemia Protocol Diltiazem HCl (Cardizem) 60 mg PO QID [facility] Last Admin: 12/11/17 18:48 Dose: 60 mg Epoetin Mario Alberto (Procrit) 10,000 unit IV TTS [facility] Last Admin: 12/11/17 11:00 Dose: 10,000 unit Famotidine (Pepcid) 20 mg PO DAILY [facility] Last Admin: 12/11/17 13:39 Dose: 20 mg Heparin Sodium (Porcine) (Heparin) 2,000 units IVP TTS [facility] Last Admin: 12/11/17 11:00 Dose: 2,000 units Piperacillin Sod/Tazobactam Sod (Zosyn 2.25 Gm Iv Premix) 2.25 gm in 50 mls @ 100 mls/hr IVPB Q8H [facility]; Protocol Last Admin: 12/11/17 12:00 Dose: Not Given Insulin Aspart (Novolog) 0 unit SC ACHS [facility]; Protocol Last Admin: 12/11/17 21:37 Dose: Not Given Lidocaine (Lidoderm) 1 ea TD DAILY [facility] Last Admin: 12/11/17 13:40 Dose: 1 ea Mirtazapine (Remeron) 15 mg PO HS [facility] Morphine Sulfate (Morphine) 2 mg IVP Q4H PRN PRN Reason: Pain, moderate (4-7) Last Admin: 12/11/17 13:46 Dose: 2 mg Rosuvastatin Calcium (Crestor) 2.5 mg PO HS [facility] Last Admin: 12/10/17 22:40 Dose: 2.5 mg Sevelamer Carbonate (Renvela) 2.4 gm PO TID [facility] Last Admin: 12/11/17 18:57 Dose: Not Given Vitamin B Complex/Vit C/Folic Acid (Nephro-Padma) 1 tab PO DAILY [facility] Last Admin: 12/11/17 13:39 Dose: 1 tab Zolpidem Tartrate (Ambien) 5 mg PO HS PRN PRN Reason: Insomnia - Labs Labs: 12/10/17 10:32 12/10/17 10:32 PT 12.5 SECONDS (9.7-12.2) H 12/05/17 09:29 INR 1.1 12/05/17 09:29 APTT 35 SECONDS (21-34) H 12/05/17 09:29
[2017-12-11] MEDS: Rosuvastatin Calcium 2.5 mg Tab PO SCH (22:09)
--- NOTE | 2017-12-12 00:08 | CP.PCM.PN ---
Subjective - Date & Time of Evaluation Date of Evaluation: 12/11/17 Time of Evaluation: 17:00 - Subjective Subjective: Patient seen and evaluated Denies chest pain and dyspnea Review Of Systems Except As Marked, All Systems Reviewed And Found Negative. Constitutional: Positive for: Fever Cardiovascular: Positive for: Chest Pain (chest wall). Negative for: Palpitations, Light Headedness Respiratory: Positive for: Shortness of Breath. Negative for: Cough, Sputum Gastrointestinal: Negative for: Nausea, Vomiting, Abdominal Pain Physical Exam - Physical Exam Appears: Non-toxic, No Acute Distress Skin: Normal Color, Warm, Dry Head: Atraumatic, Normacephalic Eye(s): bilateral: Normal Inspection Oral Mucosa: Moist Neck: Normal ROM, Supple Chest: Symmetrical, No Tenderness, Other (catheter to right anterior chest wall) Cardiovascular: Rhythm Regular, No Murmur Respiratory: No Accessory Muscle Use, Rales (bilateral bases), No Rhonchi, No Wheezing Gastrointestinal/Abdominal: Soft, No Tenderness Extremity: Normal ROM, Other (Left arm AV fistula) Neurological/Psych: Oriented x3, Normal Speech Assessment & Plan - Assessment and Plan (Free Text) Assessment: Assessment and Plan (1) End stage renal failure on dialysis Status: Acute (2) Chest pain and Dyspnea Status: Acute R/O CAD ECHO in am (3) Pneumonia Status: Acute On antibiotics (4) Fever Status: Acute (5) SOB (shortness of breath) Status: Acute No evidence of PE ECHO: Normal EF Cardizem for tachycardia and HTN Objective - Vital Signs/Intake and Output Vital Signs (last 24 hours): Temp Pulse Resp BP Pulse Ox 98.8 F 92 H 20 100/64 98 12/11/17 15:00 12/11/17 16:10 12/11/17 15:00 12/11/17 15:00 12/11/17 15:00 Intake and Output: 12/11/17 12/12/17 18:59 06:59 Intake Total 250 Balance 250 - Medications Medications: Current Medications Acetaminophen (Tylenol 325mg Tab) 650 mg PO Q6 PRN PRN Reason: Fever >100.4 F Last Admin: 12/11/17 00:44 Dose: 650 mg Allopurinol (Zyloprim) 100 mg PO DAILY [facility] Last Admin: 12/11/17 13:39 Dose: 100 mg Clonazepam (Klonopin) 0.5 mg PO BID PRN PRN Reason: Anxiety Last Admin: 12/06/17 17:21 Dose: 0.5 mg Dextrose (Dextrose 50% Inj) 0 ml IV STAT PRN; Protocol PRN Reason: Hypoglycemia Protocol Dextrose (Glutose 15) 0 gm PO ONCE PRN; Protocol PRN Reason: Hypoglycemia Protocol Diltiazem HCl (Cardizem) 60 mg PO QID [facility] Last Admin: 12/11/17 22:09 Dose: 60 mg Epoetin Mario Alberto (Procrit) 10,000 unit IV TTS [facility] Last Admin: 12/11/17 11:00 Dose: 10,000 unit Famotidine (Pepcid) 20 mg PO DAILY [facility] Last Admin: 12/11/17 13:39 Dose: 20 mg Heparin Sodium (Porcine) (Heparin) 2,000 units IVP TTS [facility] Last Admin: 12/11/17 11:00 Dose: 2,000 units Piperacillin Sod/Tazobactam Sod (Zosyn 2.25 Gm Iv Premix) 2.25 gm in 50 mls @ 100 mls/hr IVPB Q8H [facility]; Protocol Last Admin: 12/11/17 22:08 Dose: 100 mls/hr Insulin Aspart (Novolog) 0 unit SC ACHS [facility]; Protocol Last Admin: 12/11/17 21:37 Dose: Not Given Lidocaine (Lidoderm) 1 ea TD DAILY [facility] Last Admin: 12/11/17 13:40 Dose: 1 ea Mirtazapine (Remeron) 15 mg PO HS [facility] Last Admin: 12/11/17 22:09 Dose: 15 mg Morphine Sulfate (Morphine) 2 mg IVP Q4H PRN PRN Reason: Pain, moderate (4-7) Last Admin: 12/11/17 13:46 Dose: 2 mg Rosuvastatin Calcium (Crestor) 2.5 mg PO HS [facility] Last Admin: 12/11/17 22:09 Dose: 2.5 mg Sevelamer Carbonate (Renvela) 2.4 gm PO TID [facility] Last Admin: 12/11/17 18:57 Dose: Not Given Vitamin B Complex/Vit C/Folic Acid (Nephro-Padma) 1 tab PO DAILY [facility] Last Admin: 12/11/17 13:39 Dose: 1 tab Zolpidem Tartrate (Ambien) 5 mg PO HS PRN PRN Reason: Insomnia - Labs Labs: 10/03/18 10:32 12/10/17 10:32 PT 12.5 SECONDS (9.7-12.2) H 12/05/17 09:29 INR 1.1 12/05/17 09:29 APTT 35 SECONDS (21-34) H 12/05/17 09:29
[2017-12-12] MEDS: Piperacill/Tazo 2.25gm in Dex 2.25 GM/50 ML BAG IVPB SCH ×3 (04:45→21:14)
--- NOTE | 2017-12-12 06:56 | PN ---
DATE: 12/11/2017 SUBJECTIVE: Monica Mendoza is more alert, afebrile, normotensive. PHYSICAL EXAMINATION: VITAL SIGNS: BP 100/64, pulse 92, respiratory rate 20, temperature 98.8. LUNGS: Clear. CARDIOVASCULAR SYSTEM: S1 and S2, regular. ABDOMEN: Soft. ASSESSMENT: 1. Pneumonia. 2. Toxic metabolic encephalopathy. 3. Chronic kidney disease, on hemodialysis. 4. Diabetes. PLAN: Medical management. Antibiotics. Blood transfusion. Monitor the patient. Manuel Fuentes MD
[2017-12-12] MEDS: (Novolog) Insulin Aspart, Recombinant 100 u/ml 10 ml vial SC SCH ×4 (08:14→21:22)
[2017-12-12] MEDS: Lidocaine 5% Patch TD SCH (11:02)
[2017-12-12] MEDS: Multivitamin Vitamin B Complex (Nephro-Vite) Tab PO SCH (11:03)
[2017-12-12] MEDS: Sevelamer Carb 2.4 gm/Packet PO SCH ×3 (11:03→17:42)
--- NOTE | 2017-12-12 13:11 | CP.PCM.PN ---
Subjective - Date & Time of Evaluation Date of Evaluation: 12/12/17 Time of Evaluation: 13:11 - Subjective Subjective: Pulmonary Follow up, Covering Dr Vazquez The patient was Seen/interviewed and examined by me at the bedside, Medical records reviewed and Management issues were discussed and formulated with the house staff. Events reviewed Afebrile and in no acute distress. Patient reports she feels much better after hemodialysis yesterday. Patient reports SOB has resolved. Admits to constipation. Denies cough, chest pain. Objective - Vital Signs/Intake and Output Vital Signs (last 24 hours): Temp Pulse Resp BP Pulse Ox 98.1 F 84 20 127/70 96 12/12/17 08:15 12/12/17 08:15 12/12/17 08:15 12/12/17 08:15 12/12/17 08:15 Intake and Output: 12/12/17 12/12/17 06:59 18:59 Intake Total 420 Balance 420 - Medications Medications: Current Medications Acetaminophen (Tylenol 325mg Tab) 650 mg PO Q6 PRN PRN Reason: Fever >100.4 F Last Admin: 12/11/17 00:44 Dose: 650 mg Allopurinol (Zyloprim) 100 mg PO DAILY [facility] Last Admin: 12/12/17 11:03 Dose: 100 mg Clonazepam (Klonopin) 0.5 mg PO BID PRN PRN Reason: Anxiety Last Admin: 12/06/17 17:21 Dose: 0.5 mg Dextrose (Dextrose 50% Inj) 0 ml IV STAT PRN; Protocol PRN Reason: Hypoglycemia Protocol Dextrose (Glutose 15) 0 gm PO ONCE PRN; Protocol PRN Reason: Hypoglycemia Protocol Diltiazem HCl (Cardizem) 60 mg PO QID [facility] Last Admin: 12/12/17 11:03 Dose: 60 mg Epoetin Mario Alberto (Procrit) 10,000 unit IV TTS [facility] Last Admin: 12/11/17 11:00 Dose: 10,000 unit Famotidine (Pepcid) 20 mg PO DAILY [facility] Last Admin: 12/12/17 11:03 Dose: 20 mg Heparin Sodium (Porcine) (Heparin) 2,000 units IVP TTS [facility] Last Admin: 12/11/17 11:00 Dose: 2,000 units Piperacillin Sod/Tazobactam Sod (Zosyn 2.25 Gm Iv Premix) 2.25 gm in 50 mls @ 100 mls/hr IVPB Q8H [facility]; Protocol Last Admin: 12/12/17 04:45 Dose: 100 mls/hr Insulin Aspart (Novolog) 0 unit SC ACHS [facility]; Protocol Last Admin: 12/12/17 12:08 Dose: Not Given Lidocaine (Lidoderm) 1 ea TD DAILY [facility] Last Admin: 12/12/17 11:02 Dose: 1 ea Mirtazapine (Remeron) 15 mg PO HS [facility] Last Admin: 12/11/17 22:09 Dose: 15 mg Morphine Sulfate (Morphine) 2 mg IVP Q4H PRN PRN Reason: Pain, moderate (4-7) Last Admin: 12/11/17 13:46 Dose: 2 mg Rosuvastatin Calcium (Crestor) 2.5 mg PO HS [facility] Last Admin: 12/11/17 22:09 Dose: 2.5 mg Sevelamer Carbonate (Renvela) 2.4 gm PO TID [facility] Last Admin: 12/12/17 11:03 Dose: 2.4 gm Vitamin B Complex/Vit C/Folic Acid (Nephro-Padma) 1 tab PO DAILY [facility] Last Admin: 12/12/17 11:03 Dose: 1 tab Zolpidem Tartrate (Ambien) 5 mg PO HS PRN PRN Reason: Insomnia - Labs Labs: 12/10/17 10:32 12/10/17 10:32 PT 12.5 SECONDS (9.7-12.2) H 12/05/17 09:29 INR 1.1 12/05/17 09:29 APTT 35 SECONDS (21-34) H 12/05/17 09:29 - Constitutional Appears: Well, No Acute Distress - Head Exam Head Exam: ATRAUMATIC, NORMAL INSPECTION - ENT Exam Additional comments: Dry lips. - Respiratory Exam Respiratory Exam: Decreased Breath Sounds. absent: Wheezes, Stridor - Cardiovascular Exam Cardiovascular Exam: +S1, +S2 - Neurological Exam Neurological Exam: Alert, Awake - Psychiatric Exam Psychiatric exam: Normal Affect Assessment and Plan (1) Pneumonia Assessment & Plan: Clinically improving Continue IV antibiotics Status: Acute (2) Constipation Assessment & Plan: Constipation secondary to pain medication (Morphine) - Will decrease Morphine dose from 2mg to 1mg - Ordered Senna/Docusate to aid with constipation Status: Acute
--- NOTE | 2017-12-12 14:48 | CP.PCM.PN ---
Subjective - Date & Time of Evaluation Date of Evaluation: 12/12/17 Time of Evaluation: 14:47 - Subjective Subjective: Nephrology Consultation Note: Assessment: Stable sepsis with pneumonia and pulmonary edema acute pleuritic CP with dyspnoea no evidence of PE Diabetic chronic Kidney Disease (E11.22) Hypertensive Chronic Kidney Disease (I12.0) End stage renal disease (N18.6) dependence on hemodialysis (Z99.2) (TTS) via PC Anemia (D64.9), Hyperphosphatemia (E83.39), Secondary Hyperparathyroidism (E21.1), HTN (I12.0), obesity AMS with delirium Plan: routine HD dialysis tomorrow per TTS schedule Continue with Nephrovite 1 tab/day. PRBC as needed for anemia. on JOHNATHAN with dialysis as last Hb 7.6. plan for 2 unit PRBC 12/09/17. Hb now 9.1 Continue with phos binders BP control with meds as ordered. Patient not on RAAS cassie, may add if BP high. stop hydralazine as BP low. started on cardizem for rate control by cardiology Glycemic control, Dialysis consistent diet Further work up/management as per primary team Dose meds/antibiotics (if needed) for ESRD status. Avoid fleets enema/magnesium based laxatives. ID and pulmonary following, pt started on IV abx stopped gabapentin due to delirious state. Thanks for allowing me to participate in care of your patient. Will follow patient with you. Please call if any Qs. had d/w team Dr Sea Quintero Office: [phone] Chief Complaint; chest pain HPI: Pt is a67 F with hx of ESRD on hemodialysis (TTS) via PC , last dialysis thur, chronic anemia, hyperphosphatemia, secondary hyperparathyroidism, Diabetes Mellitus, hypertension morbid obesity presented with complaints of Rt chest pain acute since last night which was moderate to severe. no trauma as per pt. also wit fever and SOB. recent PC exchange due to dysfxn and left AVF placed. Renal consult requested for ESRD management. pt feels sick with SOB, chest pain which is worse on deep breaths ROS: pt awake and alert today. communicative. feels better. chest pain better. denies SOB Physical Examination: General Appearance: comfortable, in no acute respiratory distress, co-operative . Vitals reviewed and noted as below Head; Atraumatic, normocephalic ENT: no ulcers no thrush. Tongue is midline. Oropharynx: no rash or ulcers. EYES: Pupils are equal, round and reactive to light accommodation. Eye muscles and extraocular movement intact. Sclera is anicteric. Neck; supple no lymphadenopathy, no thyromegaly or bruit Lungs: Improved respiratory rate/effort. Breath sounds bilateral improved at bases Heart: normal rate. s1s2 normal. No rub or gallop. Extremities: no edema. No varicose veins Neurological: Patient is alert awake oriented, follow commands Skin: Warm and dry. Normal turgor. No rash. Palpitation: Normal elasticity for age Abdomen: Abdomen is soft. Bowel sounds +. There is no abdominal tenderness, no guarding/rigidity or organomegaly Psych: deferred MSK: no joint tenderness or swelling. Digits and nails normal, no deformity : kidney or bladder not palpable Access: PC and left AVF maturing Labs/imaging reviewed. Past medical history, past surgical history, family history, social history, allergy reviewed and noted as below Family Hx: no hx of CKD. Non contributory Objective - Vital Signs/Intake and Output Vital Signs (last 24 hours): Temp Pulse Resp BP Pulse Ox 98.1 F 90 20 127/70 96 12/12/17 08:15 12/12/17 10:15 12/12/17 08:15 12/12/17 08:15 12/12/17 08:15 Intake and Output: 12/12/17 12/12/17 06:59 18:59 Intake Total 420 Balance 420 - Medications Medications: Current Medications Acetaminophen (Tylenol 325mg Tab) 650 mg PO Q6 PRN PRN Reason: Fever >100.4 F Last Admin: 12/11/17 00:44 Dose: 650 mg Allopurinol (Zyloprim) 100 mg PO DAILY [facility] Last Admin: 12/12/17 11:03 Dose: 100 mg Clonazepam (Klonopin) 0.5 mg PO BID PRN PRN Reason: Anxiety Last Admin: 12/06/17 17:21 Dose: 0.5 mg Dextrose (Dextrose 50% Inj) 0 ml IV STAT PRN; Protocol PRN Reason: Hypoglycemia Protocol Dextrose (Glutose 15) 0 gm PO ONCE PRN; Protocol PRN Reason: Hypoglycemia Protocol Diltiazem HCl (Cardizem) 60 mg PO QID [facility] Last Admin: 12/12/17 13:27 Dose: 60 mg Epoetin Mario Alberto (Procrit) 10,000 unit IV TTS [facility] Last Admin: 12/11/17 11:00 Dose: 10,000 unit Famotidine (Pepcid) 20 mg PO DAILY [facility] Last Admin: 12/12/17 11:03 Dose: 20 mg Heparin Sodium (Porcine) (Heparin) 2,000 units IVP TTS [facility] Last Admin: 12/11/17 11:00 Dose: 2,000 units Piperacillin Sod/Tazobactam Sod (Zosyn 2.25 Gm Iv Premix) 2.25 gm in 50 mls @ 100 mls/hr IVPB Q8H [facility]; Protocol Last Admin: 12/12/17 13:24 Dose: 100 mls/hr Insulin Aspart (Novolog) 0 unit SC ACHS [facility]; Protocol Last Admin: 12/12/17 12:08 Dose: Not Given Lidocaine (Lidoderm) 1 ea TD DAILY [facility] Last Admin: 12/12/17 11:02 Dose: 1 ea Mirtazapine (Remeron) 15 mg PO HS [facility] Last Admin: 12/11/17 22:09 Dose: 15 mg Morphine Sulfate (Morphine) 2 mg IVP Q4H PRN PRN Reason: Pain, moderate (4-7) Last Admin: 12/11/17 13:46 Dose: 2 mg Rosuvastatin Calcium (Crestor) 2.5 mg PO HS [facility] Last Admin: 12/11/17 22:09 Dose: 2.5 mg Sevelamer Carbonate (Renvela) 2.4 gm PO TID [facility] Last Admin: 12/12/17 13:24 Dose: 2.4 gm Vitamin B Complex/Vit C/Folic Acid (Nephro-Padma) 1 tab PO DAILY [facility] Last Admin: 12/12/17 11:03 Dose: 1 tab Zolpidem Tartrate (Ambien) 5 mg PO HS PRN PRN Reason: Insomnia - Labs Labs: 12/10/17 10:32 12/10/17 10:32 PT 12.5 SECONDS (9.7-12.2) H 12/05/17 09:29 INR 1.1 12/05/17 09:29 APTT 35 SECONDS (21-34) H 12/05/17 09:29
--- NOTE | 2017-12-12 17:05 | CP.PCM.PN ---
Subjective - Date & Time of Evaluation Date of Evaluation: 12/12/17 Time of Evaluation: 09:00 - Subjective Subjective: awake alert nad afebrile Objective - Vital Signs/Intake and Output Vital Signs (last 24 hours): Temp Pulse Resp BP Pulse Ox 97.6 F 91 H 20 131/72 96 12/12/17 15:20 12/12/17 15:20 12/12/17 15:20 12/12/17 15:20 12/12/17 15:20 Intake and Output: 12/12/17 12/12/17 06:59 18:59 Intake Total 420 Balance 420 - Medications Medications: Current Medications Acetaminophen (Tylenol 325mg Tab) 650 mg PO Q6 PRN PRN Reason: Fever >100.4 F Last Admin: 12/11/17 00:44 Dose: 650 mg Allopurinol (Zyloprim) 100 mg PO DAILY [facility] Last Admin: 12/12/17 11:03 Dose: 100 mg Clonazepam (Klonopin) 0.5 mg PO BID PRN PRN Reason: Anxiety Last Admin: 12/06/17 17:21 Dose: 0.5 mg Dextrose (Dextrose 50% Inj) 0 ml IV STAT PRN; Protocol PRN Reason: Hypoglycemia Protocol Dextrose (Glutose 15) 0 gm PO ONCE PRN; Protocol PRN Reason: Hypoglycemia Protocol Diltiazem HCl (Cardizem) 60 mg PO QID [facility] Last Admin: 12/12/17 13:27 Dose: 60 mg Epoetin Mario Alberto (Procrit) 10,000 unit IV TTS [facility] Last Admin: 12/11/17 11:00 Dose: 10,000 unit Famotidine (Pepcid) 20 mg PO DAILY [facility] Last Admin: 12/12/17 11:03 Dose: 20 mg Heparin Sodium (Porcine) (Heparin) 2,000 units IVP TTS [facility] Last Admin: 12/11/17 11:00 Dose: 2,000 units Piperacillin Sod/Tazobactam Sod (Zosyn 2.25 Gm Iv Premix) 2.25 gm in 50 mls @ 100 mls/hr IVPB Q8H [facility]; Protocol Last Admin: 12/12/17 13:24 Dose: 100 mls/hr Insulin Aspart (Novolog) 0 unit SC ACHS [facility]; Protocol Last Admin: 12/12/17 12:08 Dose: Not Given Lidocaine (Lidoderm) 1 ea TD DAILY [facility] Last Admin: 12/12/17 11:02 Dose: 1 ea Mirtazapine (Remeron) 15 mg PO HS [facility] Last Admin: 12/11/17 22:09 Dose: 15 mg Morphine Sulfate (Morphine) 1 mg IVP Q4H PRN PRN Reason: Pain, moderate (4-7) Rosuvastatin Calcium (Crestor) 2.5 mg PO HS [facility] Last Admin: 12/11/17 22:09 Dose: 2.5 mg Senna/Docusate Sodium (Senokot S 50 Mg-8.6 Mg) 1 tab PO HS [facility] Sevelamer Carbonate (Renvela) 2.4 gm PO TID [facility] Last Admin: 12/12/17 13:24 Dose: 2.4 gm Vitamin B Complex/Vit C/Folic Acid (Nephro-Padma) 1 tab PO DAILY [facility] Last Admin: 12/12/17 11:03 Dose: 1 tab Zolpidem Tartrate (Ambien) 5 mg PO HS PRN PRN Reason: Insomnia - Labs Labs: 12/10/17 10:32 12/10/17 10:32 PT 12.5 SECONDS (9.7-12.2) H 12/05/17 09:29 INR 1.1 12/05/17 09:29 APTT 35 SECONDS (21-34) H 12/05/17 09:29 - Constitutional Appears: Non-toxic, Chronically Ill - Head Exam Head Exam: NORMOCEPHALIC - Eye Exam Eye Exam: PERRL - ENT Exam ENT Exam: Mucous Membranes Dry - Neck Exam Neck Exam: absent: Lymphadenopathy - Respiratory Exam Respiratory Exam: Decreased Breath Sounds, Rhonchi - Cardiovascular Exam Cardiovascular Exam: REGULAR RHYTHM - GI/Abdominal Exam GI & Abdominal Exam: Distended, Soft - Rectal Exam Rectal Exam: Deferred - Exam Exam: NORMAL INSPECTION Assessment and Plan (1) End stage renal failure on dialysis Status: Acute (2) Chest pain Status: Acute (3) Pneumonia Status: Acute (4) Fever Status: Acute (5) SOB (shortness of breath) Status: Acute
--- NOTE | 2017-12-12 20:23 | PN ---
DATE: 12/12/2017 SUBJECTIVE: The patient is still feeling weak. Has very poor appetite, has trouble sleeping and has off and on periods of confusion. The patient was seen today, she did not eat her salad. The patient was eating less than 20% of her meals, but she states she is trying to eat but has very poor appetite. By report, she has no appetite. Review of her labs, blood sugar is below 150. REVIEW OF SYSTEMS: GENERAL: The patient is alert, verbal with some periods of confusion. She was seen with her friend. According to her, she lee a sister who is helping her, but according to the friend, her sister has not been seen in 4 years. SKIN: No diaphoresis. HEENT: No headache. No dizziness. NECK: Supple. RESPIRATORY: No dyspnea. CARDIOVASCULAR: No chest pain. GASTROINTESTINAL: Has very poor appetite. No nausea, vomiting or constipation. EXTREMITIES: Gait is unsteady. MUSCULOSKELETAL: Generalized weakness. NEUROLOGIC: Alert with periods of confusion. GENITOURINARY: No dysuria. PHYSICAL EXAMINATION: VITAL SIGNS: Temperature is 98.1, pulse 84, blood pressure 127/70, respirations 20, oxygen saturation 96%. MENTAL STATUS: Elderly female who looks stated age, oriented x2. Mood is dysphoric. Affect is reactive. Speech is spontaneous. Thought process, still has periods of confusion. Thought content, the patient reports she has no appetite. She can sleep. No psychosis. No suicidal or homicidal ideation. Attention and memory seems to be limited. Insight and judgement limited. Impulse control is fair at this time. IMPRESSION: History of mood disorder, anxiety and depression, as well as a history of end stage renal disease on dialysis. PLAN AND RECOMMENDATIONS: Continue present management. We will monitor her p.o. intake. Continue Klonopin p.r.n., Ambien p.r.n., and Remeron 50 mg at bedtime. Nathaniel Trinh MD [facility]
[2017-12-12] MEDS: Rosuvastatin Calcium 2.5 mg Tab PO SCH (21:15)
[2017-12-12] MEDS ORDERED: Docusate-Senna 50 mg-8.6 mg Tab PO SCH (22:00)
--- NOTE | 2017-12-12 23:31 | CP.PCM.PN ---
Objective - Vital Signs/Intake and Output Vital Signs (last 24 hours): Temp Pulse Resp BP Pulse Ox 97.6 F 89 20 131/72 96 12/12/17 15:20 12/12/17 18:00 12/12/17 15:20 12/12/17 15:20 12/12/17 15:20 - Medications Medications: Current Medications Acetaminophen (Tylenol 325mg Tab) 650 mg PO Q6 PRN PRN Reason: Fever >100.4 F Last Admin: 12/12/17 21:15 Dose: 650 mg Allopurinol (Zyloprim) 100 mg PO DAILY [facility] Last Admin: 12/12/17 11:03 Dose: 100 mg Dextrose (Dextrose 50% Inj) 0 ml IV STAT PRN; Protocol PRN Reason: Hypoglycemia Protocol Dextrose (Glutose 15) 0 gm PO ONCE PRN; Protocol PRN Reason: Hypoglycemia Protocol Diltiazem HCl (Cardizem) 60 mg PO QID [facility] Last Admin: 12/12/17 21:15 Dose: 60 mg Epoetin Mario Alberto (Procrit) 10,000 unit IV TTS [facility] Last Admin: 12/11/17 11:00 Dose: 10,000 unit Famotidine (Pepcid) 20 mg PO DAILY [facility] Last Admin: 12/12/17 11:03 Dose: 20 mg Heparin Sodium (Porcine) (Heparin) 2,000 units IVP TTS [facility] Last Admin: 12/11/17 11:00 Dose: 2,000 units Piperacillin Sod/Tazobactam Sod (Zosyn 2.25 Gm Iv Premix) 2.25 gm in 50 mls @ 100 mls/hr IVPB Q8H [facility]; Protocol Last Admin: 12/12/17 21:14 Dose: 100 mls/hr Insulin Aspart (Novolog) 0 unit SC ACHS [facility]; Protocol Last Admin: 12/12/17 21:22 Dose: Not Given Lidocaine (Lidoderm) 1 ea TD DAILY [facility] Last Admin: 12/12/17 11:02 Dose: 1 ea Morphine Sulfate (Morphine) 1 mg IVP Q4H PRN PRN Reason: Pain, moderate (4-7) Rosuvastatin Calcium (Crestor) 2.5 mg PO HS [facility] Last Admin: 12/12/17 21:15 Dose: 2.5 mg Senna/Docusate Sodium (Senokot S 50 Mg-8.6 Mg) 1 tab PO HS [facility] Last Admin: 12/12/17 21:15 Dose: 1 tab Sevelamer Carbonate (Renvela) 2.4 gm PO TID [facility] Last Admin: 12/12/17 17:42 Dose: Not Given Vitamin B Complex/Vit C/Folic Acid (Nephro-Padma) 1 tab PO DAILY [facility] Last Admin: 12/12/17 11:03 Dose: 1 tab Zolpidem Tartrate (Ambien) 5 mg PO HS PRN PRN Reason: Insomnia - Labs Labs: 12/10/17 10:32 12/10/17 10:32 PT 12.5 SECONDS (9.7-12.2) H 12/05/17 09:29 INR 1.1 12/05/17 09:29 APTT 35 SECONDS (21-34) H 12/05/17 09:29
[2017-12-13] MEDS: Piperacill/Tazo 2.25gm in Dex 2.25 GM/50 ML BAG IVPB SCH ×2 (04:15→13:54)
[2017-12-13] MEDS: (Novolog) Insulin Aspart, Recombinant 100 u/ml 10 ml vial SC SCH ×3 (06:34→16:55)
[2017-12-13] MEDS: Multivitamin Vitamin B Complex (Nephro-Vite) Tab PO SCH ×2 (09:19→13:50)
[2017-12-13] MEDS: Sevelamer Carb 2.4 gm/Packet PO SCH ×3 (09:19→17:27)
[2017-12-13] MEDS: Epoetin Alfa 10,000 unit/ml Dialysis IV SCH (09:46)
--- NOTE | 2017-12-13 10:43 | CP.PCM.PN ---
Subjective - Date & Time of Evaluation Date of Evaluation: 12/13/17 Time of Evaluation: 10:42 - Subjective Subjective: Assessment: Stable sepsis with pneumonia and pulmonary edema acute pleuritic CP with dyspnoea no evidence of PE Diabetic chronic Kidney Disease (E11.22) Hypertensive Chronic Kidney Disease (I12.0) End stage renal disease (N18.6) dependence on hemodialysis (Z99.2) (TTS) via PC Anemia (D64.9), Hyperphosphatemia (E83.39), Secondary Hyperparathyroidism (E21.1), HTN (I12.0), obesity AMS with delirium Plan: rseen on HD tolerating tx, continue ttsContinue with Nephrovite 1 tab/day. PRBC as needed for anemia. on JOHNATHAN on phos binder bp stable Glycemic control, Dialysis consistent diet Further work up/management as per primary team Dose meds/antibiotics (if needed) for ESRD status. Avoid fleets enema/magnesium based laxatives. ID and pulmonary following, pt started on IV abx dose for esrd S: seen and examined on hd Physical Examination: General Appearance: comfortable, in no acute respiratory distress, co-operative . Vitals reviewed and noted as below Head; Atraumatic, normocephalic ENT: no ulcers no thrush. Tongue is midline. Oropharynx: no rash or ulcers. EYES: Pupils are equal, round and reactive to light accommodation. Eye muscles and extraocular movement intact. Sclera is anicteric. Neck; supple no lymphadenopathy, no thyromegaly or bruit Lungs: Improved respiratory rate/effort. Breath sounds bilateral improved at bases Heart: normal rate. s1s2 normal. No rub or gallop. Extremities: no edema. No varicose veins Neurological: Patient is alert awake oriented, follow commands Skin: Warm and dry. Normal turgor. No rash. Palpitation: Normal elasticity for age Abdomen: Abdomen is soft. Bowel sounds +. There is no abdominal tenderness, no guarding/rigidity or organomegaly Psych: deferred MSK: no joint tenderness or swelling. Digits and nails normal, no deformity : kidney or bladder not palpable Access: PC and left AVF maturing Objective - Vital Signs/Intake and Output Vital Signs (last 24 hours): Temp Pulse Resp BP Pulse Ox 97.6 F 73 20 120/68 96 12/13/17 09:25 12/13/17 09:25 12/13/17 09:25 12/13/17 10:25 12/13/17 09:25 Intake and Output: 12/13/17 12/13/17 06:59 18:59 Intake Total 130 Balance 130 - Medications Medications: Current Medications Acetaminophen (Tylenol 325mg Tab) 650 mg PO Q6 PRN PRN Reason: Fever >100.4 F Last Admin: 12/12/17 21:15 Dose: 650 mg Allopurinol (Zyloprim) 100 mg PO DAILY [facility] Last Admin: 12/13/17 09:20 Dose: Not Given Dextrose (Dextrose 50% Inj) 0 ml IV STAT PRN; Protocol PRN Reason: Hypoglycemia Protocol Dextrose (Glutose 15) 0 gm PO ONCE PRN; Protocol PRN Reason: Hypoglycemia Protocol Diltiazem HCl (Cardizem) 60 mg PO QID [facility] Last Admin: 12/13/17 09:19 Dose: Not Given Epoetin Mario Alberto (Procrit) 10,000 unit IV TTS [facility] Last Admin: 12/13/17 09:46 Dose: 10,000 unit Famotidine (Pepcid) 20 mg PO DAILY [facility] Last Admin: 12/13/17 09:19 Dose: Not Given Heparin Sodium (Porcine) (Heparin) 2,000 units IVP TTS [facility] Last Admin: 12/13/17 09:45 Dose: 2,000 units Piperacillin Sod/Tazobactam Sod (Zosyn 2.25 Gm Iv Premix) 2.25 gm in 50 mls @ 100 mls/hr IVPB Q8H [facility]; Protocol Last Admin: 12/13/17 04:15 Dose: 100 mls/hr Insulin Aspart (Novolog) 0 unit SC ACHS [facility]; Protocol Last Admin: 12/13/17 06:34 Dose: Not Given Lidocaine (Lidoderm) 1 ea TD DAILY [facility] Last Admin: 12/12/17 11:02 Dose: 1 ea Morphine Sulfate (Morphine) 1 mg IVP Q4H PRN PRN Reason: Pain, moderate (4-7) Rosuvastatin Calcium (Crestor) 2.5 mg PO HS [facility] Last Admin: 12/12/17 21:15 Dose: 2.5 mg Senna/Docusate Sodium (Senokot S 50 Mg-8.6 Mg) 1 tab PO HS [facility] Last Admin: 12/12/17 21:15 Dose: 1 tab Sevelamer Carbonate (Renvela) 2.4 gm PO TID [facility] Last Admin: 12/13/17 09:19 Dose: Not Given Vitamin B Complex/Vit C/Folic Acid (Nephro-Padma) 1 tab PO DAILY [facility] Last Admin: 12/13/17 09:19 Dose: Not Given Zolpidem Tartrate (Ambien) 5 mg PO HS PRN PRN Reason: Insomnia - Labs Labs: 12/10/17 10:32 12/10/17 10:32 PT 12.5 SECONDS (9.7-12.2) H 12/05/17 09:29 INR 1.1 12/05/17 09:29 APTT 35 SECONDS (21-34) H 12/05/17 09:29
[2017-12-13 13:12] VITALS: RESP 18; TEMP 97.5
[2017-12-13] MEDS: Lidocaine 5% Patch TD SCH (13:49)
[2017-12-13 16:43] VITALS: BP 113/70; PULSE 96; O2SAT 97
--- NOTE | 2017-12-13 17:28 | CP.PCM.PN ---
Subjective - Date & Time of Evaluation Date of Evaluation: 12/13/17 Time of Evaluation: 17:28 Objective - Vital Signs/Intake and Output Vital Signs (last 24 hours): Temp Pulse Resp BP Pulse Ox 97.5 F L 96 H 18 113/70 97 12/13/17 15:00 12/13/17 15:00 12/13/17 15:00 12/13/17 15:00 12/13/17 15:00 Intake and Output: 12/13/17 12/13/17 06:59 18:59 Intake Total 130 Balance 130 - Medications Medications: Current Medications Acetaminophen (Tylenol 325mg Tab) 650 mg PO Q6 PRN PRN Reason: Fever >100.4 F Last Admin: 12/13/17 11:03 Dose: 650 mg Allopurinol (Zyloprim) 100 mg PO DAILY [facility] Last Admin: 12/13/17 13:50 Dose: 100 mg Dextrose (Dextrose 50% Inj) 0 ml IV STAT PRN; Protocol PRN Reason: Hypoglycemia Protocol Dextrose (Glutose 15) 0 gm PO ONCE PRN; Protocol PRN Reason: Hypoglycemia Protocol Diltiazem HCl (Cardizem) 60 mg PO QID [facility] Last Admin: 12/13/17 17:26 Dose: Not Given Epoetin Mario Alberto (Procrit) 10,000 unit IV TTS [facility] Last Admin: 12/13/17 09:46 Dose: 10,000 unit Famotidine (Pepcid) 20 mg PO DAILY [facility] Last Admin: 12/13/17 13:50 Dose: 20 mg Heparin Sodium (Porcine) (Heparin) 2,000 units IVP TTS [facility] Last Admin: 12/13/17 09:45 Dose: 2,000 units Piperacillin Sod/Tazobactam Sod (Zosyn 2.25 Gm Iv Premix) 2.25 gm in 50 mls @ 100 mls/hr IVPB Q8H JULES; Protocol Last Admin: 12/13/17 13:54 Dose: Not Given Insulin Aspart (Novolog) 0 unit SC ACHS [facility]; Protocol Last Admin: 12/13/17 16:55 Dose: Not Given Lidocaine (Lidoderm) 1 ea TD DAILY [facility] Last Admin: 12/13/17 13:49 Dose: 1 ea Morphine Sulfate (Morphine) 1 mg IVP Q4H PRN PRN Reason: Pain, moderate (4-7) Rosuvastatin Calcium (Crestor) 2.5 mg PO HS [facility] Last Admin: 12/12/17 21:15 Dose: 2.5 mg Senna/Docusate Sodium (Senokot S 50 Mg-8.6 Mg) 1 tab PO HS [facility] Last Admin: 12/12/17 21:15 Dose: 1 tab Sevelamer Carbonate (Renvela) 2.4 gm PO TID [facility] Last Admin: 12/13/17 17:27 Dose: 2.4 gm Vitamin B Complex/Vit C/Folic Acid (Nephro-Padma) 1 tab PO DAILY [facility] Last Admin: 12/13/17 13:50 Dose: 1 tab Zolpidem Tartrate (Ambien) 5 mg PO HS PRN PRN Reason: Insomnia - Labs Labs: 12/10/17 10:32 12/10/17 10:32 PT 12.5 SECONDS (9.7-12.2) H 12/05/17 09:29 INR 1.1 12/05/17 09:29 APTT 35 SECONDS (21-34) H 12/05/17 09:29 Assessment and Plan - Assessment and Plan (Free Text) Assessment: PLACE UNDER THE SERVICE OD DR LUCIANO ----CALL FOR ADMITTING ORDER CONTINUE MEDICATION PER MED REC ACTIVITY TOLERATED AND FACILITY PROTOCOL CALL DR LUCIANO FOR FURTHER ORDER
--- NOTE | 2017-12-13 19:30 | PN ---
DATE: 12/13/2017 SUBJECTIVE: The patient is seen. The patient has been off Remeron because she earlier lethargic. She is more alert and verbal now, less confused, but still has very poor appetite. The patient is complaining of shortness of breath, as well as still very poor appetite and reluctant to go to [facility] for subacute rehab. She states she is not ready yet to go for rehab and today although she has been compliant with dialysis, the patient is eating less than 20% of her meals. MEDICATIONS: Review of the patient's current meds includes only Ambien 5 mg at bedtime p.r.n., the patient is off Remeron because she was earlier sedated. REVIEW OF SYSTEMS: GENERAL: The patient is more alert, verbal, seen in her room, complaining of shortness of breath and having palpitation, stating she is not ready to go for rehab. SKIN: No diaphoresis. HEENT: No headache or dizziness. NECK: Supple. RESPIRATORY: Complaining off and on shortness of breath. CARDIOVASCULAR: Complaining of palpitation. GASTROINTESTINAL: The patient has very poor appetite, eating less than 20% of her meals. No diarrhea. EXTREMITIES: Gait is unsteady. MUSCULOSKELETAL: Feels weak. GENITOURINARY: No dysuria. PHYSICAL EXAMINATION: VITAL SIGNS: Temperature 97.5, pulse 84, blood pressure 108/65, respirations is 18, oxygen sat is 96%. Her last blood sugar is 103. NEUROLOGIC: Alert and oriented x3. The patient states she has agreed to go for subacute rehab, but there is nobody to help her at home. Her confusion seems to be improving at this time. Mental status examination, obese elderly female who looks stated age, oriented x3. Mood is dysphoric, anxious. Affect is reactive. Speech spontaneous. Thought process coherent. Thought content, the patient is reluctant to go to [facility] for some subacute rehab, stating she is not ready. The patient's appetite is still very poor. The patient is having palpitation and shortness of breath. As stated, no suicidal or homicidal ideation or psychosis. Attention and memory seems to be fair. Insight and judgment fair. Impulse control is fair. IMPRESSION: History of mood disorder, anxiety and depression, end-stage renal disease on dialysis as well as history of pneumonia. PLAN AND RECOMMENDATIONS: The patient is seen, meds reviewed. Will keep the patient off Remeron for now as she was lethargic, just keep the Ambien 5 mg at bedtime. We will monitor her p.o. intake. Continue dialysis. I told the nurse to call Dr. Fuentes if the patient is refusing to go for subacute rehab, stating that she is still not medically stable at this time complaining of pulmonary problems as well as also still has very poor p.o. intake. Nathaniel Trinh MD
--- NOTE | 2017-12-13 22:07 | CP.PCM.DIS ---
Provider - Provider Date of Admission: 12/05/17 10:01 Attending physician: Manuel Fuentes MD Hospital Course - Lab Results Lab Results: Micro Results 12/09/17 10:10 Blood Blood Culture - Preliminary NO GROWTH AFTER 3 DAYS 12/10/17 07:44 Blood Blood Culture - Preliminary NO GROWTH AFTER 3 DAYS 12/05/17 11:44 Blood Blood Culture - Final NO GROWTH AFTER 5 DAYS 12/05/17 11:44 Blood Gram Stain - Final TEST NOT PERFORMED 12/05/17 11:44 Blood Blood Culture - Final NO GROWTH AFTER 5 DAYS 12/05/17 11:44 Blood Gram Stain - Final TEST NOT PERFORMED Most Recent Lab Values WBC 12.3 K/uL (4.8-10.8) H 12/10/17 10:32 RBC 3.26 Mil/uL (3.80-5.20) L 12/10/17 10:32 Hgb 9.1 g/dL (11.0-16.0) L 12/10/17 10:32 Hct 28.2 % (34.0-47.0) L 12/10/17 10:32 MCV 86.4 fL (81.0-99.0) 12/10/17 10:32 MCH 28.0 pg (27.0-31.0) 12/10/17 10:32 MCHC 32.5 g/dL (33.0-37.0) L 12/10/17 10:32 RDW 19.1 % (11.5-14.5) H 12/10/17 10:32 Plt Count 277 K/uL (130-400) 12/10/17 10:32 MPV 10.2 fL (7.2-11.7) 12/10/17 10:32 Neut % (Auto) 70.1 % (50.0-75.0) 12/10/17 10:32 Lymph % (Auto) 11.0 % (20.0-40.0) L 12/10/17 10:32 [place] % (Auto) 16.9 % (0.0-10.0) H 12/10/17 10:32 Eos % (Auto) 1.3 % (0.0-4.0) 12/10/17 10:32 Baso % (Auto) 0.7 % (0.0-2.0) 12/10/17 10:32 Neut # (Auto) 8.6 K/uL (1.8-7.0) H 12/10/17 10:32 Lymph # (Auto) 1.4 K/uL (1.0-4.3) 12/10/17 10:32 [place] # (Auto) 2.1 K/uL (0.0-0.8) H 12/10/17 10:32 Eos # (Auto) 0.2 K/uL (0.0-0.7) 12/10/17 10:32 Baso # (Auto) 0.1 K/uL (0.0-0.2) 12/10/17 10:32 PT 12.5 SECONDS (9.7-12.2) H 12/05/17 09:29 INR 1.1 12/05/17 09:29 APTT 35 SECONDS (21-34) H 12/05/17 09:29 pO2 40 mm/Hg (30-55) 12/09/17 05:57 VBG pH 7.37 (7.32-7.43) 12/09/17 05:57 VBG pCO2 47 mmHg (40-60) 12/09/17 05:57 VBG HCO3 25.3 mmol/L 12/09/17 05:57 VBG Total CO2 28.6 mmol/L (22-28) H 12/09/17 05:57 VBG O2 Sat (Calc) 76.1 % (40-65) H 12/09/17 05:57 VBG Base Excess 1.3 mmol/L (0.0-2.0) 12/09/17 05:57 VBG Potassium 4.1 mmol/L (3.6-5.2) 12/09/17 05:57 Sodium 135.0 mmol/l (132-148) 12/09/17 05:57 Chloride 100.0 mmol/L (98-107) 12/09/17 05:57 Glucose 123 mg/dl (65-105) H 12/09/17 05:57 Lactate 1.0 mmol/L (0.7-2.1) 12/09/17 05:57 Sodium 139 mmol/L (132-148) 12/10/17 10:32 Potassium 3.5 mmol/L (3.6-5.2) L 12/10/17 10:32 Chloride 97 mmol/L (98-107) L 12/10/17 10:32 Carbon Dioxide 29 mmol/L (22-30) 12/10/17 10:32 Anion Gap 17 (10-20) 12/10/17 10:32 BUN 29 mg/dL (7-17) H 12/10/17 10:32 Creatinine 5.1 mg/dL (0.7-1.2) H 12/10/17 10:32 Est GFR ( Amer) 10 12/10/17 10:32 Est GFR (Non-Af Amer) 8 12/10/17 10:32 POC Glucose (mg/dL) 121 mg/dL (65-110) H 12/13/17 16:30 Random Glucose 108 mg/dL (65-105) H 12/10/17 10:32 Calcium 9.1 mg/dl (8.6-10.4) 12/10/17 10:32 Phosphorus 4.4 mg/dL (2.5-4.5) 12/10/17 10:32 Magnesium 2.0 mg/dL (1.6-2.3) 12/05/17 09:29 Total Bilirubin 1.1 mg/dL (0.2-1.3) 12/10/17 10:32 AST 22 U/L (14-36) 12/10/17 10:32 ALT 27 U/L (9-52) 12/10/17 10:32 Alkaline Phosphatase 186 U/L (38-126) H D 12/10/17 10:32 Troponin I 0.0230 ng/mL (0.00-0.120) 12/05/17 09:29 NT-Pro-B Natriuret Pep 724 pg/mL (0-900) 12/05/17 09:29 Total Protein 6.8 g/dL (6.3-8.3) 12/10/17 10:32 Albumin 3.2 g/dL (3.5-5.0) L 12/10/17 10:32 Globulin 3.7 gm/dL (2.2-3.9) 12/10/17 10:32 Albumin/Globulin Ratio 0.9 (1.0-2.1) L 12/10/17 10:32 TSH 3rd Generation 2.24 mIU/L (0.46-4.68) 12/05/17 09:29 Venous Blood Potassium 4.1 mmol/L (3.6-5.2) 12/09/17 05:57 Blood Type O POSITIVE 12/09/17 05:35 Antibody Screen Negative 12/09/17 05:35 Discharge Exam - Head Exam Head Exam: NORMOCEPHALIC Discharge Plan - Follow Up Plan Condition: FAIR Disposition: HOME/ ROUTINE Instructions: Pneumonia, Adult (DC), End Stage Kidney Disease (DC), Dialysis and Diet Additional Instructions: PLACE UNDER THE SERVICE OD DR FUENTES ----CALL FOR ADMITTING ORDER CONTINUE MEDICATION PER MED REC ACTIVITY TOLERATED AND FACILITY PROTOCOL CALL DR FUENTES FOR FURTHER ORDER Referrals: Ezra Vazquez MD [Staff Provider] - Quintin Oliveira MD [Staff Provider] - Mike Salguero MD [Staff Provider] - Manuel Fuentes MD [Staff Provider] - Herve Daly MD [Staff Provider] - Joseph Corona Jr., MD [Staff Provider] -
--- NOTE | 2017-12-13 22:52 | CP.PCM.PN ---
Subjective - Date & Time of Evaluation Date of Evaluation: 12/13/17 Time of Evaluation: 18:00 - Subjective Subjective: Pulmonary Follow up, Covering Dr Vazquez The patient was Seen/interviewed and examined by me at the bedside, Medical records reviewed and Management issues were discussed and formulated with the house staff. Events reviewed Afebrile and in no acute distress. Patient reports she feels much better after hemodialysis yesterday. Patient reports SOB has resolved. Admits to constipation. Denies cough, chest pain. Scheduled for discharge to [facility]. Objective - Vital Signs/Intake and Output Vital Signs (last 24 hours): Temp Pulse Resp BP Pulse Ox 97.5 F L 96 H 18 113/70 97 12/13/17 15:00 12/13/17 15:00 12/13/17 15:00 12/13/17 15:00 12/13/17 15:00 - Labs Labs: 12/10/17 10:32 12/10/17 10:32 PT 12.5 SECONDS (9.7-12.2) H 12/05/17 09:29 INR 1.1 12/05/17 09:29 APTT 35 SECONDS (21-34) H 12/05/17 09:29 Assessment and Plan (1) Pneumonia Status: Acute (2) Constipation Status: Acute
--- NOTE | 2017-12-15 08:56 | DS ---
ADMISSION DIAGNOSIS: Pneumonia. DISCHARGE DIAGNOSES: 1. Pneumonia. 2. Chronic kidney disease. 3. Hypertension. 4. Type 2 diabetes. 5. Toxic metabolic encephalopathy. HOSPITAL COURSE: This is a 67-year-old female with a history of type 2 diabetes, hypertension, CKD, on hemodialysis three times a week who is compliant with diet, medications, and followup. The patient was admitted because of weakness, cough, congestion, and shortness of breath. She denied any polyuria, polydipsia, or polyphagia. She denied any history of hematuria or pyuria. She denies any sneezing, itchy eyes, or itchy nose. She denies any history of trauma, fall, or loss of consciousness. She denies any history of seizure-like activity. The patient was admitted to the floor, found to have pneumonia, which responded to antibiotics, and the patient is feeling better. She did get encephalopathy with altered mental status, but she did well. The patient is for discharge. CONDITION UPON DISCHARGE: Stable. PHYSICAL EXAMINATION: VITAL SIGNS: Blood pressure 113/70, pulse 96, respiratory rate 18, and temperature 99.5. LUNGS: Bilateral rales. CARDIOVASCULAR SYSTEM: S1 and S2, regular. ABDOMEN: Soft. PLAN: Discharge the patient. Manuel Fuentes MD
== END 2017-12-13 20:45 | disposition home or self-care (01) | DRG 871 ==
LOC: C.ER 08:33 → C.9E 10:01 → C.5S 10:33
PROVIDERS: ADMIT Internal Medicine; ATTEND Internal Medicine
PROC: 5A1D70Z Performance of Urinary Filtration, Intermittent, Less than 6 Hours Per Day (ICD-10-PCS; principal; 2017-12-10)
DX: A41.9 Sepsis, unspecified organism (principal); J18.9 Pneumonia, unspecified organism; N18.6 End stage renal disease; G93.41 Metabolic encephalopathy; I12.0 Hypertensive chronic kidney disease with stage 5 chronic kidney disease or end stage renal disease; N25.81 Secondary hyperparathyroidism of renal origin; E11.22 Type 2 diabetes mellitus with diabetic chronic kidney disease; E11.65 Type 2 diabetes mellitus with hyperglycemia; Z99.2 Dependence on renal dialysis; Z79.4 Long term (current) use of insulin; E83.39 Other disorders of phosphorus metabolism; E66.01 Morbid (severe) obesity due to excess calories; Z87.891 Personal history of nicotine dependence; D64.9 Anemia, unspecified; Z68.38 Body mass index [BMI] 38.0-38.9, adult; E78.00 Pure hypercholesterolemia, unspecified; E78.5 Hyperlipidemia, unspecified; K59.03 Drug induced constipation; F41.9 Anxiety disorder, unspecified

== ENCOUNTER 2017-12-30 17:03 | Inpatient (IN) | payer MEDICARE ==
--- NOTE | 2017-12-30 17:47 | C.PDOC ---
History Of Present Illness 67 y/o female with a PMHx of HTN, DM, anemia, ESRD (on dialysis --), presents to the ED complaining she suddenly developed SOB and palpitations when leaving dialysis today. Patient reports having prior episodes of similar symptom s, which occur intermittently, but she cannot recall the cause/specific diagnosis. She also complains of dry lips and states she is frequently thirsty. Of note, patient was recently admitted here, released to [facility], and returned home 2 days ago. Otherwise she denies any chest pain, fever, chills, URI symptoms, abdominal pain, or other associated symptoms. Time Seen by Provider: 12/30/17 17:21 Chief Complaint (Nursing): Shortness Of Breath History Per: Patient History/Exam Limitations: no limitations Onset/Duration Of Symptoms: Intermittent Episodes Current Symptoms Are (Timing): Still Present Past Medical History Reviewed: Historical Data, Nursing Documentation, Vital Signs Vital Signs: Last Vital Signs Temp 98.7 F 12/30/17 17:25 Pulse 113 H 12/30/17 17:18 Resp 20 12/30/17 17:18 BP Pulse Ox 97 12/30/17 17:18 - Medical History PMH: Arthritis, HTN, Hypercholesterolemia, End Stage Renal Disease (T-FRI-FRI), Chronic Kidney Disease - [facility] Procedures (12/05/17) Family History: States: Unknown Family Hx - Social History Hx Alcohol Use: No Hx Substance Use: No - Immunization History Hx Tetanus Toxoid Vaccination: Yes Hx Influenza Vaccination: Yes Hx Pneumococcal Vaccination: No Review Of Systems Except As Marked, All Systems Reviewed And Found Negative. Constitutional: Negative for: Fever, Chills ENT: Negative for: Nose Congestion Cardiovascular: Positive for: Palpitations. Negative for: Chest Pain Respiratory: Positive for: Shortness of Breath. Negative for: Cough, Wheezing Gastrointestinal: Negative for: Nausea, Vomiting, Abdominal Pain, Diarrhea Neurological: Negative for: Weakness, Incoordination, Change in Speech, Confusion, Dizziness Physical Exam - Physical Exam Additional Physical Exam Comments: Constitutional: No acute distress. Head: Normocephalic. Atraumatic. Eyes: PERRL. ENT: Lips appear chapped. Neck: Supple. Cardiovascular: Regular rate. Radial pulse 2+ bilaterally. Chest: Dialysis catheter noted to right chest wall. Respiratory: Mild crackles to the right base. GI: Soft. Nontender. Nondistended. Back: No CVA tenderness. Musculoskeletal: No tenderness or swelling of extremities. Palpable thrill to left arm, AV fistula. Skin: No rash. Neurologic: Alert, no focal deficit. ED Course And Treatment - Laboratory Results Result Diagrams: 12/30/17 18:25 12/30/17 18:25 ECG: Interpreted By Me, Viewed By Me ECG Rhythm: Sinus Rhythm Interpretation Of ECG: No ST elevations Rate From EC (bpm) O2 Sat by Pulse Oximetry: 97 (RA) Pulse Ox Interpretation: Normal Medical Decision Making Medical Decision Making: Initial Plan: --Blood work --CXR --EKG CXR no consolidation. Dr. Fuentes accepts patient for observation with her persistent shortness of breath. Disposition - Disposition Disposition: HOSPITALIZED Disposition Time: 20:00 Condition: FAIR - Clinical Impression Clinical Impression: Dyspnea - Scribe Statement The provider has reviewed the documentation as recorded by the Scribe (Kim Conteh) Provider Attestation: All medical record entries made by the Scribe were at my direction and p ersonally dictated by me. I have reviewed the chart and agree that the record accurately reflects my personal performance of the history, physical exam, medical decision making, and the department course for this patient. I have also personally directed, reviewed, and agree with the discharge instructions and disposition.
[2017-12-30 18:30] LABS: BASO # 0.2 K/uL (0.0-0.2); BASO % 1.7 % (0.0-2.0); EOS # 0.2 K/uL (0.0-0.7); EOS % 1.6 % (0.0-4.0); HEMOGLOBIN 10.7 g/dL (11.0-16.0); LYMPH # 1.7 K/uL (1.0-4.3); LYMPH % 13.5 % (20.0-40.0); MEAN CORPUSCULAR HGB CONC 31.8 g/dL (33.0-37.0); MEAN PLATELET VOLUME 8.8 fL (7.2-11.7); NEUT # 9.3 K/uL (1.8-7.0); NEUT % 75.2 % (50.0-75.0); NRBC % 0.1 % (0.0-2.0); RBC 3.81 Mil/uL (3.80-5.20); RED CELL DISTRIBUTION WIDTH 20.3 % (11.5-14.5); WHITE BLOOD COUNT 12.3 K/uL (4.8-10.8)
[2017-12-30 18:37] LABS: INR 1.1; PROTHROMBIN TIME 12.5 SECONDS (9.7-12.2)
[2017-12-30 18:46] LABS: ALBUMIN 4.3 g/dL (3.5-5.0); ALT/SGPT 24 U/L (9-52); AST/SGOT 22 U/L (14-36); BLOOD UREA NITROGEN 20 mg/dL (7-17); CALCIUM 10.3 mg/dl (8.6-10.4); GFR NON-AFRICAN AMERICAN 6
[2017-12-30 18:55] LABS: B-TYPE NATRIURETIC PEPTIDE 406 pg/mL (0-900)
[2017-12-30 18:56] LABS: CK-MB < 0.22 ng/mL (0.0-3.38)
--- NOTE | 2017-12-30 19:03 | RAD ---
HISTORY: shortness of breath COMPARISON: Chest x-ray performed 12/09/17 TECHNIQUE: Chest, one view. FINDINGS: Examination limited by habitus. The patient's chin obscures evaluation of the lung apices. Right IJ approach central venous catheter extends to the expected location of the right atrium. LUNGS: Patchy right lower lobe infiltrate. Moderate pulmonary venous congestion, improved since 12/09/17. Please note that chest x-ray has limited sensitivity for the detection of pulmonary masses. PLEURA: No significant pleural effusion identified. No definite pneumothorax . CARDIOVASCULAR: Cardiomegaly. Ectatic aorta. Atherosclerotic calcifications of the aorta. Atherosclerotic calcifications of the aortic knob. OSSEOUS STRUCTURES: Degenerative changes. VISUALIZED UPPER ABDOMEN: Unremarkable. OTHER FINDINGS: None. IMPRESSION: Limited study. Patchy right lower lobe infiltrate. Moderate pulmonary venous congestion, improved since 12/09/17. Cardiomegaly. Right IJ approach central venous catheter extends expected location of the right atrium.
[2017-12-30] MEDS ORDERED: guaiFENesin 200 mg/10 ml Syrup UD PO PRN (19:16)
[2017-12-30] MEDS: Oxycodone/Acetaminophen 5/325 mg Tab PO PRN (20:58)
[2017-12-30] MEDS: (Novolin R) Insulin Human Regular 100 units/ml vial SC SCH (21:42)
[2017-12-30] MEDS: Docusate-Senna 50 mg-8.6 mg Tab PO SCH (21:44)
--- NOTE | 2017-12-30 22:58 | CP.PCM.HP ---
Past Patient History - Infectious Disease Hx of Infectious Diseases: None - Past Medical History & Family History Past Medical History?: Yes - Past Social History Smoking Status: Former Smoker - CARDIAC Hx Hypercholesterolemia: Yes Hx Hypertension: Yes - PULMONARY Hx Respiratory Disorders: Yes Other/Comment: SOB ON EXERTION - NEUROLOGICAL Hx Neurological Disorder: No - HEENT Hx HEENT Problems: No - RENAL Hx Chronic Kidney Disease: Yes - ENDOCRINE/METABOLIC Hx Diabetes Mellitus Type 2: Yes - HEMATOLOGICAL/ONCOLOGICAL Hx Blood Disorders: No - INTEGUMENTARY Hx Dermatological Problems: Yes Other/Comment: HX: "SORES ON BOTH LOWER EXTREMITIES-ALMOST ALL HEALED WITH TX. FROM MD." - MUSCULOSKELETAL/RHEUMATOLOGICAL Hx Arthritis: Yes - GASTROINTESTINAL Hx Gastrointestinal Disorders: No - GENITOURINARY/GYNECOLOGICAL Hx Genitourinary Disorders: No - PSYCHIATRIC Hx Substance Use: No - SURGICAL HISTORY Hx Surgeries: Yes Hx Arteriovenous Shunt: Yes Hx Vascular Access Device: Yes (RIGHT CHEST PERMACATH) Other/Comment: HX: ENDOVENOUS LASER ABLATION OF LEFT LEG. RIGHT UA FISTULA - ANESTHESIA Hx Anesthesia: Yes Hx Anesthesia Reactions: No Hx Malignant Hyperthermia: No Meds Allergies/Adverse Reactions: Allergies Allergy/AdvReac Type Severity Reaction Status Date / Time No Known Allergies Allergy Verified 12/30/17 17:18 Results - Vital Signs Recent Vital Signs: Last Vital Signs Temp 98.1 F 12/30/17 20:30 Pulse 116 H 12/30/17 20:30 Resp 20 12/30/17 20:30 BP 102/62 12/30/17 20:30 Pulse Ox 98 12/30/17 20:30 - Labs Result Diagrams: 12/30/17 18:25 12/30/17 18:25 Labs: Laboratory Results - last 24 hr 12/30/17 12/30/17 12/30/17 18:25 18:25 18:25 WBC 12.3 H RBC 3.81 Hgb 10.7 L Hct 33.5 L MCV 88.0 MCH 28.0 MCHC 31.8 L RDW 20.3 H Plt Count 147 D MPV 8.8 Neut % (Auto) 75.2 H Lymph % (Auto) 13.5 L [place] % (Auto) 8.0 Eos % (Auto) 1.6 Baso % (Auto) 1.7 Neut # (Auto) 9.3 H Lymph # (Auto) 1.7 [place] # (Auto) 1.0 H Eos # (Auto) 0.2 Baso # (Auto) 0.2 PT 12.5 H INR 1.1 APTT 41 H Sodium 141 Potassium 4.3 Chloride 93 L Carbon Dioxide 33 H Anion Gap 19 BUN 20 H Creatinine 6.5 H Est GFR ( Amer) 8 Est GFR (Non-Af Amer) 6 Random Glucose 108 H Calcium 10.3 Total Bilirubin 0.9 AST 22 ALT 24 Alkaline Phosphatase 160 H Total Creatine Kinase 38 CK-MB (Mass) < 0.22 Troponin I < 0.0120 NT-Pro-B Natriuret Pep 406 Total Protein 8.4 H Albumin 4.3 Globulin 4.1 H Albumin/Globulin Ratio 1.0
[2017-12-31] MEDS: Oxycodone/Acetaminophen 5/325 mg Tab PO PRN (05:41)
[2017-12-31] MEDS ORDERED: Oxycodone/Acetaminophen 5/325 mg Tab PO PRN (06:24)
--- NOTE | 2017-12-31 07:10 | HP ---
CHIEF COMPLAINT: Weakness x1 day. HISTORY OF PRESENT ILLNESS: This is a 67-year-old female well known to me with history of end-stage renal disease, on hemodialysis; gouty arthritis; hypertension; hyperlipidemia; type 2 diabetes with diabetic nephropathy and now the patient is on hemodialysis. The patient was discharged from [facility] after a hospitalization. The patient was in [facility] for almost two weeks. The patient went home on Friday and today she was in dialysis unit. By the time, she arrived in the dialysis unit, she was not feeling well. She was week. She was dizzy. She had cough, congestion. She denied any chest pain. She had chest congestion. She denied any history of polyuria, polydipsia. She denied any history of hematuria, pyuria, history of nasal congestion. She had pain in the right side of the mouth and teeth. The patient had white sputum production. She denied smoking. She denied any abdominal pain, nausea, vomiting. There is no history of trauma, fall or loss of consciousness. The patient was in the dialysis unit. In the dialysis unit when she arrived, she was not feeling well. She was placed on oxygen. She felt better and she underwent dialysis until she was discharged. Once the patient was discharged, the patient did not feel well and she came to emergency room and she was hospitalized. CURRENT MEDICATIONS: The patient is on hydralazine, diltiazem, Klonopin, Ambien, Biotin, Renvela, Pravachol, Remeron, Tradjenta, lactulose, gabapentin, Pepcid, Senokot and allopurinol. SOCIAL HISTORY: Ex-smoker. Ex-EtOH user. PAST MEDICAL HISTORY: CKD, on hemodialysis; type 2 diabetes; hypertension; hyperlipidemia; gouty arthritis, osteoarthritis. PHYSICAL EXAMINATION: GENERAL: An elderly female who is feeling weak and complaining of pain in the right side of the mouth and the teeth. VITAL SIGNS: Blood pressure 102/62, pulse 116, respiratory rate 20, temperature 98.1. SKIN: The patient has no bruises, no purpura. She has chronic changes. HEENT: Atraumatic and normocephalic. Positive pallor. Negative jaundice. Extraocular movements are intact. NECK: Supple. No JVD. No lymph nodes. No thyromegaly. No carotid bruits. CHEST: Chest wall bilaterally symmetrical expansion. BREASTS: No masses. No discharge. LUNGS: Clear air entry. Positive rhonchi. Positive crackles. CVS: PMI is not localized. S1 and S2 plus, S3 positive. ABDOMEN: Soft. Nontender. Bowel sounds are positive. RECTAL: No masses. No bleed. PELVIC: Deferred. EXTREMITIES: +2 pitting edema with chronic changes. ELECT[employer] PH[employer] MASK TECHNICIAN: Awake, alert and oriented x2. ASSESSMENT: 1. Dizziness and weakness. 2. Rule out acute exacerbation of chronic obstructive pulmonary disease. 2. Hypertension. 3. Chronic kidney disease, on hemodialysis. 4. Type 2 diabetes. PLAN: Monitor patient, ____ troponins q.6 x3. Cardiology evaluation. Discontinue diltiazem. Start the patient on beta-cassie. Repeat labs. Nephrology consult. Manuel Fuentes MD
[2017-12-31 08:06] LABS: CK-MB < 0.22 ng/mL (0.0-3.38)
[2017-12-31] MEDS: Multivitamin Vitamin B Complex (Nephro-Vite) Tab PO SCH (09:43)
[2017-12-31] MEDS: Metoprolol Succinate 25 mg XL Tab PO SCH (09:43)
[2017-12-31] MEDS: (Novolin R) Insulin Human Regular 100 units/ml vial SC SCH ×4 (09:45→21:44)
[2017-12-31] MEDS ORDERED: Rosuvastatin Calcium 2.5 mg Tab PO SCH (10:00)
[2017-12-31] MEDS: Lactulose 10 gm/15 ml (Rectal Use) PR SCH (10:16)
[2017-12-31 15:04] LABS: CK-MB < 0.22 ng/mL (0.0-3.38)
[2017-12-31] MEDS ORDERED: Iodixanol 320 MG/ML 100 ML BOTTLE IV ONE (15:57)
--- NOTE | 2017-12-31 16:47 | CT ---
Date of service: 12/31/2017 CTA chest PE protocol Indication: r/o PE Technique: Contiguous axial images were obtained through the chest with intravenous contrast enhancement. Sagittal and coronal reconstructions were generated and reviewed. This CT exam was performed using 1 or more of the following dose reduction techniques: Automated exposure control, adjustment of the MAA and/or kV according to patient size, and/or use of iterative reconstruction technique. IV contrast: 100 cc Visipaque 320 Radiation dose (DLP): 568.63 MGy-cm. Comparison: Chest x-ray performed 12/30/17 CT chest with IV contrast performed 12/05/17 Findings: Right IJ approach dialysis catheter extends to the right atrium. Visualized portions of the inferior thyroid gland appear unremarkable. The mediastinal and hilar vascular structures appear within normal limits. The heart appears within normal limits of size. Sub cm mesenteric/sub cm lymph nodes, nonspecific. No atherosclerotic calcifications of the aorta present. Pulmonary artery measures approximately 3.4 cm in diameter; correlate for pulmonary arterial hypertension. Small filling defect/thrombus within a right lower lobe pulmonary artery branch (series 2, image 125). Patchy right greater than left lower lobe infiltrates. No pleural effusion. No pneumothorax. Limited visualized portions of the upper abdomen: Partially imaged hepatomegaly. 11 mm probable splenule. Degenerative changes of the spine. Impression: Small filling defect within a right lower lobe pulmonary artery branch consistent with pulmonary embolus. Pulmonary artery measures approximately 3.4 cm in diameter; correlate for pulmonary arterial hypertension. Patchy right greater than left lower lobe infiltrates. Findings were discussed with the patient's RN Bk on 12/31/17 at 4:41 p.m..
[2017-12-31] MEDS: Heparin25000 units/250ml 1/2NS 25,000 UNITS/250 ML BAG IV PRN (18:45)
--- NOTE | 2017-12-31 19:41 | CARD ---
APPROVED REPORT Date of service: 12/30/2017 EKG Measurement Heart [id number] <Conclusion> Sinus tachycardia with premature atrial complexes PRWP Moderate voltage criteria for LVH, may be normal variant Borderline ECG
[2017-12-31] MEDS: Rosuvastatin Calcium 2.5 mg Tab PO SCH (21:39)
[2017-12-31] MEDS: Docusate-Senna 50 mg-8.6 mg Tab PO SCH (21:40)
--- NOTE | 2018-01-01 02:59 | CP.PCM.PCO ---
Addendum entered and electronically signed by Leander Casillas 01/01/18 06:23: House doctor note: Paged for patient refusing blood worked. Spoke with patient, explained to her reason why blood work was needed. Patient agreed. Received additional paged about elevated Cr in the 9s. Patient has Hx of ESRD, nephro is already consulted. Vitals within normal limits. Patient has no complaints at moment. Original Note: Physician Communication Note - Physician Communication Note Physician Communication Note: refused blood draw, Cr karolina
[2018-01-01 03:52] LABS: HEMOGLOBIN 9.4 g/dL (11.0-16.0); MEAN CELL VOLUME 88.3 fL (81.0-99.0); MEAN CORPUSCULAR HEMOGLOBIN 28.5 pg (27.0-31.0); MEAN CORPUSCULAR HGB CONC 32.3 g/dL (33.0-37.0); RBC 3.31 Mil/uL (3.80-5.20); WHITE BLOOD COUNT 8.7 K/uL (4.8-10.8)
[2018-01-01 04:07] LABS: CALCIUM 9.5 mg/dl (8.6-10.4)
[2018-01-01] MEDS: Heparin25000 units/250ml 1/2NS 25,000 UNITS/250 ML BAG IV PRN (08:10)
[2018-01-01] MEDS: (Novolin R) Insulin Human Regular 100 units/ml vial SC SCH ×4 (08:38→21:27)
--- NOTE | 2018-01-01 08:46 | PN ---
DATE: 12/31/2017 SUBJECTIVE: The patient, Monica Mendoza, has pulmonary embolism as she is being started on heparin drip. The patient is more alert. At times, she has periods of confusion. She has toothache in the right molar area but she is much better. PHYSICAL EXAMINATION: VITAL SIGNS: Blood pressure 108/65, pulse 90, respiratory rate 20, temperature 98.1. LUNGS: Bilateral rales and rhonchi. CARDIOVASCULAR SYSTEM: S1, S2 plus S3 positive. ABDOMEN: Soft, nontender. Bowel sounds are positive. ASSESSMENT: 1. Pulmonary embolism, heparin drip. 2. Chronic kidney disease, on hemodialysis, 3. Type 2 diabetes. 4. Hypertension. PLAN: Continue current medication. Monitor the patient. Continue heparin drip. Manuel Fuentes MD
--- NOTE | 2018-01-01 08:47 | CON ---
DATE: 12/31/2017 REASON FOR CONSULTATION: Tachycardia. The patient is a very poor historian and whenever I asked her, she referred me to go to her medical records. HISTORY OF PRESENT ILLNESS: The patient is a 67 years old female who has a history of hypertension, diabetes mellitus was initiated recently on hemodialysis following a peripheral intervention according to the patient. The patient was in [facility] and was referred to admission because of shortness of breath and palpitation. The patient is unaware of any history of heart attack in the past. SOCIAL HISTORY: Nonsmoker. The patient lives alone. MEDICATIONS: Ambien 5 mg at bedtime, Amoxil 500 mg p.o. every 8 hours, Hydralazine 25 mg every 8 hours, Crestor 2.5 mg once a day, Lactulose 10 mg daily, heparin 5000 units subcutaneously every 8 hours, Clonazepam 0.5 mg twice a day, Neurontin 100 mg twice a day, Pepcid 20 mg p.o. once a day, Percocet 1 tablet every 4 hours p.r.n., Toprol XL 25 mg once a day, Zyloprim 100 mg once a day. REVIEW OF SYSTEMS: No fever or chills. No nausea or vomiting. PAST MEDICAL HISTORY: Hypertension, diabetes mellitus, gouty arthritis and was recently placed on hemodialysis. PHYSICAL EXAMINATION: GENERAL: The patient is an elderly female who does not appear to be in acute distress. VITAL SIGNS: Blood pressure 98/55, heart rate 96, temperature 98.1, respirations 20. HEENT: Pale conjunctiva. NECK; Small goiter is noted. CHEST: Bibasilar rhonchi. HEART: S1, S2 regular. ABDOMEN: Soft. EXTREMITIES: Trace edema with chronic skin changes. LABORATORY DATA: PT 12.5, PTT 41, D-dimer is 1536. SMA-7; sodium 141, potassium 4.3, chloride 93, CO2 33, glucose 108, BUN 20 and creatinine 6.5. Two sets of troponins are negative. Hemoglobin and hematocrit 10.7 and 33.5. White count 12.3, platelet count 147,000. Yesterday's EKG revealed sinus tachycardia at rate of 104 with occasional PVCs, poor R-wave progression. Echocardiography study performed on 12/07/2017 revealed normal ejection fraction, a mass suggestive of myxoma in the right atrium and reduced left ventricular compliance. I did review the echocardiography study myself and the right atrial shadow may represent tip of the dialysis catheter. Recent head CT scan on 12/09/2017 revealed scattered periventricular and subcortical white matter hypodensities which are nonspecific but often seen with chronic microvascular ischemic disease. Small hypodensity noted in the left basal ganglia may reflect ischemic changes. Chest CT scan with contrast done last month revealed bilateral lobe infiltrate, cardiomegaly, dense coronary artery calcification, right IJ approach dialysis catheter extends to the right atrium. Venous Doppler of the lower extremity in 09/2017 was negative. On 12/03/2017, the patient underwent Permacath right jugular vein with fluoroscopy and underwent brachiocephalic fistula of the left elbow. The patient's previous EKGs revealed sinus tachycardia in the past; however, one EKG on 12/09/2017 revealed supraventricular tachycardia at the rate of 156. Admitting chest x-ray revealed normal cardiac silhouette and left lung haziness. No definite consolidation or effusion. ASSESSMENT: 1. Shortness of breath, rule out pulmonary infarct. 2. Endstage renal disease, on hemodialysis. 3. Hypertension and diabetes mellitus. 4. History of supraventricular tachycardia. RECOMMENDATIONS: Continue Crestor 2.5 mg once a day, subcutaneous heparin 5000 units every 8 hours, Toprol XL at 25 mg once a day. Obtain chest CT angio to rule out pulmonary embolism. Benitez Hunter MD
[2018-01-01] MEDS ORDERED: Heparin25000 units/250ml 1/2NS 25,000 UNITS/250 ML BAG IV PRN (09:15)
--- NOTE | 2018-01-01 11:15 | CP.PCM.CON ---
History of Present Illness - History of Present Illness History of Present Illness: Nephrology Consultation Note: Assessment: Critical acute PE and pneumonia with pulmonary congestion diastolic CHF and Rt atrial myxoma Diabetic chronic Kidney Disease (E11.22) Hypertensive Chronic Kidney Disease (I12.0) End stage renal disease (N18.6) dependence on hemodialysis (Z99.2) (TTS) via PC Anemia (D64.9), Hyperphosphatemia (E83.39), Secondary Hyperparathyroidism (E21.1), HTN (I12.0), Morbid obesity Plan: routine HD dialysis today per TTS schedule Continue with Nephrovite 1 tab/day. PRBC as needed for anemia. on JOHNATHAN with dialysis as last Hb 9.4. Continue with phos binders BP control with meds as ordered. Patient not on RAAS cassie, may add if BP high. stop hydralazine as BP low. on Toprol XL for rate control Glycemic control, Dialysis consistent diet Further work up/management as per primary team Dose meds/antibiotics (if needed) for ESRD status. Avoid fleets enema/magnesium based laxatives. Thanks for allowing me to participate in care of your patient. Will follow patient with you. Please call if any Qs. had d/w team Dr Sea Quintero Office: [phone] Chief Complaint; SOB and palitation reason for consult: ESRD HPI: Pt is a 67 F with hx of ESRD on hemodialysis (TTS) via PC , last dialysis Tue, chronic anemia, hyperphosphatemia, secondary hyperparathyroidism, Diabetes Mellitus, hypertension morbid obesity, diastolic CHF and Rt atrial myxoma presented with complaints of SOB and palpitation, acute onset and found to have acute PE and pneumonia Renal consult requested for ESRD management. she feels better today. she is now home, recently dc from Rehab. she was recently admitted to [facility] with PNA and sepsis/AMS ROS: pt awake and alert. feels better, denies chest pain/palpitation. improving SOB. no nausea/vomitting. all other negative Physical Examination: General Appearance: comfortable, in no acute respiratory distress, co-operative . obese Vitals reviewed and noted as below Head; Atraumatic, normocephalic ENT: no ulcers no thrush. Tongue is midline. Oropharynx: no rash or ulcers. EYES: Pupils are equal, round and reactive to light accommodation. Eye muscles and extraocular movement intact. Sclera is anicteric. Neck; supple no lymphadenopathy, no thyromegaly or bruit Lungs: Normal respiratory rate/effort. Breath sounds bilateral decreased at bases Heart: Increased rate. s1s2 normal. No rub or gallop. Extremities: no edema. No varicose veins Neurological: Patient is alert awake oriented, follow commands Skin: Warm and dry. Normal turgor. No rash. Palpitation: Normal elasticity for age Abdomen: Abdomen is soft. Bowel sounds +. There is no abdominal tenderness, no guarding/rigidity or organomegaly Psych: limited insight. flat affect MSK: no joint tenderness or swelling. Digits and nails normal, no deformity : kidney or bladder not palpable Access: PC and left AVF maturing Labs/imaging reviewed. Past medical history, past surgical history, family history, social history, allergy reviewed and noted as below Family Hx: no hx of CKD. Non contributory Past Patient History - Infectious Disease Hx of Infectious Diseases: None - Past Medical History & Family History Past Medical History?: Yes - Past Social History Smoking Status: Former Smoker - CARDIAC Hx Hypercholesterolemia: Yes Hx Hypertension: Yes - PULMONARY Hx Respiratory Disorders: Yes Other/Comment: SOB ON EXERTION - NEUROLOGICAL Hx Neurological Disorder: No - HEENT Hx HEENT Problems: No - RENAL Hx Chronic Kidney Disease: Yes - ENDOCRINE/METABOLIC Hx Diabetes Mellitus Type 2: Yes - HEMATOLOGICAL/ONCOLOGICAL Hx Blood Disorders: No - INTEGUMENTARY Hx Dermatological Problems: Yes Other/Comment: HX: "SORES ON BOTH LOWER EXTREMITIES-ALMOST ALL HEALED WITH TX. FROM MD." - MUSCULOSKELETAL/RHEUMATOLOGICAL Hx Arthritis: Yes Hx Falls: Yes - GASTROINTESTINAL Hx Gastrointestinal Disorders: No - GENITOURINARY/GYNECOLOGICAL Hx Genitourinary Disorders: No - PSYCHIATRIC Hx Substance Use: No - SURGICAL HISTORY Hx Surgeries: Yes Hx Arteriovenous Shunt: Yes Hx Vascular Access Device: Yes (RIGHT CHEST PERMACATH) Other/Comment: HX: ENDOVENOUS LASER ABLATION OF LEFT LEG. RIGHT UA FISTULA - ANESTHESIA Hx Anesthesia: Yes Hx Anesthesia Reactions: No Hx Malignant Hyperthermia: No Meds Allergies/Adverse Reactions: Allergies Allergy/AdvReac Type Severity Reaction Status Date / Time No Known Allergies Allergy Verified 12/30/17 17:18 - Medications Medications: Current Medications Acetaminophen (Tylenol 325mg Tab) 650 mg PO Q6 PRN PRN Reason: toothache Last Admin: 12/31/17 20:37 Dose: 650 mg Allopurinol (Zyloprim) 100 mg PO DAILY [facility] Last Admin: 12/31/17 09:43 Dose: 100 mg Amoxicillin (Amoxil 500 Mg Cap) 500 mg PO Q24H [facility]; Protocol Last Admin: 01/01/18 06:26 Dose: 500 mg Clonazepam (Klonopin) 0.5 mg PO BID PRN PRN Reason: Anxiety Last Admin: 12/30/17 21:51 Dose: 0.5 mg Epoetin Mario Alberto (Procrit) 8,000 unit IV TTS [facility] Famotidine (Pepcid) 20 mg PO DAILY [facility] Last Admin: 12/31/17 09:43 Dose: 20 mg Gabapentin (Neurontin) 100 mg PO BID [facility] Last Admin: 12/31/17 18:56 Dose: 100 mg Guaifenesin (Robitussin) 200 mg PO Q4H PRN PRN Reason: Cough and congestion Hydralazine HCl (Apresoline) 25 mg PO Q8 PRN PRN Reason: Other Heparin Sodium/Sodium Chloride (Heparin 08331 Units/250ml 1/2 Normal Saline) 25,000 units in 250 mls @ 17.69 mls/hr IV .Q14H8M PRN; Protocol PRN Reason: ADJUST RATE PER PROTOCOL Last Admin: 01/01/18 10:40 Dose: 15 units/kg/hr, 17.69 mls/hr Insulin Human Regular (Novolin R) 0 unit SC ACHS [facility]; Protocol Last Admin: 01/01/18 08:38 Dose: Not Given Lactulose (Generlac) 10 gm [place] DAILY [facility] Last Admin: 12/31/17 10:16 Dose: 10 gm Metoprolol Succinate (Toprol Xl) 25 mg PO DAILY [facility] Last Admin: 12/31/17 09:43 Dose: 25 mg Mirtazapine (Remeron) 15 mg PO HS [facility] Last Admin: 12/31/17 21:40 Dose: 15 mg Oxycodone/Acetaminophen (Percocet 5/325 Mg Tab) 1 tab PO Q4H PRN PRN Reason: Pain, moderate (4-7) Stop: 01/02/18 20:44 Rosuvastatin Calcium (Crestor) 2.5 mg PO DAILY@2200 [facility] Last Admin: 12/31/17 21:39 Dose: 2.5 mg Senna/Docusate Sodium (Senokot S 50 Mg-8.6 Mg) 1 tab PO HS [facility] Last Admin: 12/31/17 21:40 Dose: 1 tab Sevelamer Carbonate (Renvela) 2,400 mg PO TID [facility] Last Admin: 12/31/17 18:55 Dose: 2,400 mg Vitamin B Complex/Vit C/Folic Acid (Nephro-Padma) 1 tab PO DAILY [facility] Last Admin: 12/31/17 09:43 Dose: 1 tab Zolpidem Tartrate (Ambien) 5 mg PO HS PRN PRN Reason: Insomnia Last Admin: 12/31/17 21:40 Dose: 5 mg Results - Vital Signs Recent Vital Signs: Last Vital Signs Temp 98.1 F 01/01/18 09:06 Pulse 97 H 01/01/18 09:06 Resp 20 01/01/18 09:06 BP 113/70 01/01/18 09:06 Pulse Ox 94 L 01/01/18 09:06 - Labs Result Diagrams: 01/01/18 03:49 01/01/18 03:48 Labs: Laboratory Results - last 24 hr 12/31/17 12/31/17 12/31/17 12:28 14:26 16:42 WBC RBC Hgb Hct MCV MCH MCHC RDW Plt Count MPV APTT D-Dimer, Quantitative 1536 H Sodium Potassium Chloride Carbon Dioxide Anion Gap BUN Creatinine Est GFR ( Amer) Est GFR (Non-Af Amer) POC Glucose (mg/dL) 104 Random Glucose Calcium Total Creatine Kinase 38 CK-MB (Mass) < 0.22 Troponin I < 0.0120 12/31/17 01/01/18 01/01/18 21:33 03:48 03:49 WBC 8.7 RBC 3.31 L Hgb 9.4 L Hct 29.2 L MCV 88.3 MCH 28.5 MCHC 32.3 L RDW 20.0 H Plt Count 147 MPV 9.0 APTT D-Dimer, Quantitative Sodium 138 Potassium 4.2 Chloride 95 L Carbon Dioxide 32 H Anion Gap 15 BUN 32 H Creatinine 9.5 H* D Est GFR ( Amer) 5 Est GFR (Non-Af Amer) 4 POC Glucose (mg/dL) 109 Random Glucose 91 Calcium 9.5 Total Creatine Kinase CK-MB (Mass) Troponin I 01/01/18 01/01/18 06:54 08:19 WBC RBC Hgb Hct MCV MCH MCHC RDW Plt Count MPV APTT 173 H* D D-Dimer, Quantitative Sodium Potassium Chloride Carbon Dioxide Anion Gap BUN Creatinine Est GFR ( Amer) Est GFR (Non-Af Amer) POC Glucose (mg/dL) 84 Random Glucose Calcium Total Creatine Kinase CK-MB (Mass) Troponin I
[2018-01-01] MEDS: Multivitamin Vitamin B Complex (Nephro-Vite) Tab PO SCH (11:41)
[2018-01-01] MEDS: Lactulose 10 gm/15 ml (Rectal Use) PR SCH (11:41)
[2018-01-01] MEDS: EPOETIN ALFA 4,000 UNIT/ML ML Dialysis IV SCH ×2 (11:42→12:52)
[2018-01-01] MEDS: Metoprolol Succinate 25 mg XL Tab PO SCH (11:42)
--- NOTE | 2018-01-01 17:09 | CP.PCM.PN ---
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 and labs reviewed Objective - Vital Signs/Intake and Output Vital Signs (last 24 hours): Temp Pulse Resp BP Pulse Ox 98.6 F 91 H 20 102/66 96 01/01/18 15:00 01/01/18 15:00 01/01/18 15:00 01/01/18 15:00 01/01/18 15:00 Intake and Output: 01/01/18 01/01/18 06:59 18:59 Intake Total 370 230 Balance 370 230 - Medications Medications: Current Medications Acetaminophen (Tylenol 325mg Tab) 650 mg PO Q6 PRN PRN Reason: toothache Last Admin: 01/01/18 12:50 Dose: 650 mg Allopurinol (Zyloprim) 100 mg PO DAILY [facility] Last Admin: 01/01/18 11:42 Dose: Not Given Amoxicillin (Amoxil 500 Mg Cap) 500 mg PO Q24H [facility]; Protocol Last Admin: 01/01/18 06:26 Dose: 500 mg Clonazepam (Klonopin) 0.5 mg PO BID PRN PRN Reason: Anxiety Last Admin: 12/30/17 21:51 Dose: 0.5 mg Epoetin Mario Alberto (Procrit) 8,000 unit IV TTS [facility] Last Admin: 01/01/18 12:52 Dose: 8,000 unit Famotidine (Pepcid) 20 mg PO DAILY [facility] Last Admin: 01/01/18 11:41 Dose: Not Given Gabapentin (Neurontin) 100 mg PO BID [facility] Last Admin: 01/01/18 11:41 Dose: Not Given Guaifenesin (Robitussin) 200 mg PO Q4H PRN PRN Reason: Cough and congestion Heparin Sodium (Porcine) (Heparin) 3,700 units IV TTS [facility] Last Admin: 01/01/18 14:11 Dose: 3,700 units Hydralazine HCl (Apresoline) 25 mg PO Q8 PRN PRN Reason: Other Heparin Sodium/Sodium Chloride (Heparin 08719 Units/250ml 1/2 Normal Saline) 25,000 units in 250 mls @ 17.69 mls/hr IV .Q14H8M PRN; Protocol PRN Reason: ADJUST RATE PER PROTOCOL Last Admin: 01/01/18 10:40 Dose: 15 units/kg/hr, 17.69 mls/hr Insulin Human Regular (Novolin R) 0 unit SC ACHS [facility]; Protocol Last Admin: 01/01/18 11:41 Dose: Not Given Lactulose (Generlac) 10 gm [place] DAILY [facility] Last Admin: 01/01/18 11:41 Dose: Not Given Metoprolol Succinate (Toprol Xl) 25 mg PO DAILY [facility] Last Admin: 01/01/18 11:42 Dose: Not Given Mirtazapine (Remeron) 15 mg PO HS [facility] Last Admin: 12/31/17 21:40 Dose: 15 mg Oxycodone/Acetaminophen (Percocet 5/325 Mg Tab) 1 tab PO Q4H PRN PRN Reason: Pain, moderate (4-7) Stop: 01/02/18 20:44 Rosuvastatin Calcium (Crestor) 2.5 mg PO DAILY@2200 [facility] Last Admin: 12/31/17 21:39 Dose: 2.5 mg Senna/Docusate Sodium (Senokot S 50 Mg-8.6 Mg) 1 tab PO HS [facility] Last Admin: 12/31/17 21:40 Dose: 1 tab Sevelamer Carbonate (Renvela) 2,400 mg PO TID [facility] Last Admin: 01/01/18 14:37 Dose: Not Given Vitamin B Complex/Vit C/Folic Acid (Nephro-Padma) 1 tab PO DAILY [facility] Last Admin: 01/01/18 11:41 Dose: Not Given Zolpidem Tartrate (Ambien) 5 mg PO HS PRN PRN Reason: Insomnia Last Admin: 12/31/17 21:40 Dose: 5 mg - Labs Labs: 01/01/18 03:49 01/01/18 03:48 PT 12.5 SECONDS (9.7-12.2) H 12/30/17 18:25 INR 1.1 12/30/17 18:25 APTT 173 SECONDS (21-34) H* D 01/01/18 08:19
--- NOTE | 2018-01-01 19:15 | PN ---
DATE: 01/01/2018 SUBJECTIVE: A chest CT angio was performed yesterday revealed small filling defects within the right lower lobe pulmonary artery branch consistent with pulmonary embolus. The patient was initiated on intravenous heparin in a therapeutic regimen. The patient is currently undergoing hemodialysis. She denies chest pain. She complaints of left groin pain. PHYSICAL EXAMINATION: VITAL SIGNS: Blood pressure 166/80, heart rate 98, temperature 98.3, respirations 15. HEENT: Pale conjunctivae. CHEST: Minimal rhonchi. HEART: S1, S2 regular. EXTREMITIES: 1+ pitting edema. LABORATORY DATA: Today's SMA-7; sodium 138, potassium 4.2, chloride 95, CO2 of 32, glucose 91, BUN 32, and creatinine 9.5. The most recent INR is 173 which was relayed to me and protocol was followed and intravenous heparin infusion was reduced by 300 units. ASSESSMENT: 1. Small right lower lobe pulmonary artery branch embolism. 2. Endstage renal disease on hemodialysis. 3. Mild anemia. 4. Morbid obesity. 5. Hypertension and diabetes mellitus. 6. History of supraventricular tachycardia on an EKG on 12/09/2017. RECOMMENDATIONS: Continue intravenous heparin therapeutic regimen. Continue Toprol XL 25 mg daily. I will follow venous Doppler of the lower extremities before discontinuing intravenous heparin. Long-term oral anticoagulation was discussed with Dr. Quintero the cordwood cutter, and if the patient is not compliant it may not be safe to consider that in view of a small thrombus burden in the right lower pulmonary artery branch. Benitez Hunter MD
[2018-01-01] MEDS: Rosuvastatin Calcium 2.5 mg Tab PO SCH (21:35)
[2018-01-01] MEDS: Docusate-Senna 50 mg-8.6 mg Tab PO SCH (21:35)
--- NOTE | 2018-01-01 21:57 | CP.PCM.PN ---
Subjective - Subjective Subjective: dictated Objective - Vital Signs/Intake and Output Vital Signs (last 24 hours): Temp Pulse Resp BP Pulse Ox 98.6 F 101 H 20 102/66 96 01/01/18 15:00 01/01/18 18:00 01/01/18 15:00 01/01/18 15:00 01/01/18 15:00 Intake and Output: 01/01/18 01/02/18 18:59 06:59 Intake Total 230 Balance 230 - Medications Medications: Current Medications Acetaminophen (Tylenol 325mg Tab) 650 mg PO Q6 PRN PRN Reason: toothache Last Admin: 01/01/18 12:50 Dose: 650 mg Allopurinol (Zyloprim) 100 mg PO DAILY [facility] Last Admin: 01/01/18 11:42 Dose: Not Given Amoxicillin (Amoxil 500 Mg Cap) 500 mg PO Q24H [facility]; Protocol Last Admin: 01/01/18 06:26 Dose: 500 mg Apixaban (Eliquis) 5 mg PO BID [facility] Clonazepam (Klonopin) 0.5 mg PO BID PRN PRN Reason: Anxiety Last Admin: 12/30/17 21:51 Dose: 0.5 mg Epoetin Mario Alberto (Procrit) 8,000 unit IV TTS [facility] Last Admin: 01/01/18 12:52 Dose: 8,000 unit Famotidine (Pepcid) 20 mg PO DAILY [facility] Last Admin: 01/01/18 11:41 Dose: Not Given Gabapentin (Neurontin) 100 mg PO BID [facility] Last Admin: 01/01/18 18:21 Dose: 100 mg Guaifenesin (Robitussin) 200 mg PO Q4H PRN PRN Reason: Cough and congestion Heparin Sodium (Porcine) (Heparin) 3,700 units IV TTS [facility] Last Admin: 01/01/18 14:11 Dose: 3,700 units Hydralazine HCl (Apresoline) 25 mg PO Q8 PRN PRN Reason: Other Heparin Sodium/Sodium Chloride (Heparin 06150 Units/250ml 1/2 Normal Saline) 25,000 units in 250 mls @ 17.69 mls/hr IV .Q14H8M PRN; Protocol PRN Reason: ADJUST RATE PER PROTOCOL Stop: 01/01/18 22:00 Last Admin: 01/01/18 10:40 Dose: 15 units/kg/hr, 17.69 mls/hr Insulin Human Regular (Novolin R) 0 unit SC ACHS [facility]; Protocol Last Admin: 01/01/18 21:27 Dose: Not Given Lactulose (Generlac) 10 gm [place] DAILY [facility] Last Admin: 01/01/18 11:41 Dose: Not Given Metoprolol Succinate (Toprol Xl) 25 mg PO DAILY [facility] Last Admin: 01/01/18 11:42 Dose: Not Given Mirtazapine (Remeron) 15 mg PO HS [facility] Last Admin: 01/01/18 21:35 Dose: 15 mg Oxycodone/Acetaminophen (Percocet 5/325 Mg Tab) 1 tab PO Q4H PRN PRN Reason: Pain, moderate (4-7) Stop: 01/02/18 20:44 Rosuvastatin Calcium (Crestor) 2.5 mg PO DAILY@2200 [facility] Last Admin: 01/01/18 21:35 Dose: 2.5 mg Senna/Docusate Sodium (Senokot S 50 Mg-8.6 Mg) 1 tab PO HS [facility] Last Admin: 01/01/18 21:35 Dose: 1 tab Sevelamer Carbonate (Renvela) 2,400 mg PO TID [facility] Last Admin: 01/01/18 18:21 Dose: 2,400 mg Vitamin B Complex/Vit C/Folic Acid (Nephro-Padma) 1 tab PO DAILY [facility] Last Admin: 01/01/18 11:41 Dose: Not Given Zolpidem Tartrate (Ambien) 5 mg PO HS PRN PRN Reason: Insomnia Last Admin: 01/01/18 21:35 Dose: 5 mg - Labs Labs: 01/01/18 03:49 01/01/18 03:48 PT 12.5 SECONDS (9.7-12.2) H 12/30/17 18:25 INR 1.1 12/30/17 18:25 APTT 173 SECONDS (21-34) H* D 01/01/18 08:19
--- NOTE | 2018-01-02 03:39 | PN ---
DATE: 01/01/2018 SUBJECTIVE: The patient is more alert. She is feeling better. No nausea or vomiting. She is coughing. No wheezing. PHYSICAL EXAMINATION VITAL SIGNS: Blood pressure 102/66, pulse 91, respiratory rate 20, temperature 98.6. LUNGS: Decreased air entry. Positive rhonchi. CARDIOVASCULAR SYSTEM: S1, S2 regular. ABDOMEN: Soft, nontender. Bowel sounds are positive. ASSESSMENT: 1. Pulmonary embolism. 2. Type 2 diabetes. 3. Chronic kidney disease, on hemodialysis. 4. Hypertension. PLAN: Continue heparin drip. Start the patient on Coumadin. Manuel Fuentes MD
[2018-01-02] MEDS: (Novolin R) Insulin Human Regular 100 units/ml vial SC SCH ×4 (07:46→21:51)
[2018-01-02] MEDS: Multivitamin Vitamin B Complex (Nephro-Vite) Tab PO SCH (09:54)
[2018-01-02] MEDS: Metoprolol Succinate 25 mg XL Tab PO SCH (09:54)
--- NOTE | 2018-01-02 10:14 | CP.PCM.PN ---
Subjective - Date & Time of Evaluation Date of Evaluation: 01/02/18 Time of Evaluation: 10:12 - Subjective Subjective: Nephrology Consultation Note: Assessment: Stable acute PE and pneumonia with pulmonary congestion diastolic CHF and ? 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 PRBC as needed for anemia. on JOHNATHAN with dialysis as last Hb 9.4. Continue with phos binders BP control with meds as ordered. Patient not on RAAS cassie, may add if BP high. stop hydralazine as BP low. on Toprol XL for rate control Glycemic control, Dialysis consistent diet Further work up/management as per primary team Dose meds/antibiotics (if needed) for ESRD status. Avoid fleets enema/magnesium based laxatives. cardiology following pt on gabpentin for neuropathy. consider eval for PVD if leg pain persists Thanks for allowing me to participate in care of your patient. Will follow patient with you. Please call if any Qs. had d/w team Dr Sea Quintero Office: [phone] Chief Complaint; none now reason for consult: ESRD HPI: Pt is a 67 F with hx of ESRD on hemodialysis (TTS) via PC , last dialysis Tue, chronic anemia, hyperphosphatemia, secondary hyperparathyroidism, Diabetes Mellitus, hypertension morbid obesity, diastolic CHF and Rt atrial myxoma presented with complaints of SOB and palpitation, acute onset and found to have acute PE and pneumonia Renal consult requested for ESRD management. she feels better today. she is now home, recently dc from Rehab. she was recently admitted to [facility] with PNA and sepsis/AMS ROS: pt awake and alert. feels better, denies chest pain/palpitation. improved SOB. no nausea/vomiting. all other negative c/o leg pains Physical Examination: General Appearance: comfortable, in no acute respiratory distress, co-operative . obese Vitals reviewed and noted as below Head; Atraumatic, normocephalic ENT: no ulcers no thrush. Tongue is midline. Oropharynx: no rash or ulcers. EYES: Pupils are equal, round and reactive to light accommodation. Eye muscles and extraocular movement intact. Sclera is anicteric. Neck; supple no lymphadenopathy, no thyromegaly or bruit Lungs: Normal respiratory rate/effort. Breath sounds bilateral decreased at bases Heart: normal rate. s1s2 normal. No rub or gallop. Extremities: no edema. No varicose veins. chronic hyperpigmentation venous stasis changes + Neurological: Patient is alert awake oriented, follow commands. no focal deified Skin: Warm and dry. Normal turgor. No rash. Palpitation: Normal elasticity for age Abdomen: Abdomen is soft. Bowel sounds +. There is no abdominal tenderness, no guarding/rigidity or organomegaly Psych: limited insight. flat affect MSK: no joint tenderness or swelling. Digits and nails normal, no deformity : kidney or bladder not palpable Access: PC and left AVF maturing Labs/imaging reviewed. Past medical history, past surgical history, family history, social history, allergy reviewed and noted as below Family Hx: no hx of CKD. Non contributory Objective - Vital Signs/Intake and Output Vital Signs (last 24 hours): Temp Pulse Resp BP Pulse Ox 98.4 F 94 H 20 94/59 L 96 01/02/18 07:00 01/02/18 07:00 01/02/18 07:00 01/02/18 07:00 01/02/18 07:00 - Medications Medications: Current Medications Acetaminophen (Tylenol 325mg Tab) 650 mg PO Q6 PRN PRN Reason: toothache Last Admin: 01/01/18 12:50 Dose: 650 mg Allopurinol (Zyloprim) 100 mg PO DAILY [facility] Last Admin: 01/02/18 09:54 Dose: 100 mg Amoxicillin (Amoxil 500 Mg Cap) 500 mg PO Q24H [facility]; Protocol Last Admin: 01/02/18 08:17 Dose: 500 mg Apixaban (Eliquis) 5 mg PO BID [facility] Last Admin: 01/02/18 09:54 Dose: 5 mg Clonazepam (Klonopin) 0.5 mg PO BID PRN PRN Reason: Anxiety Last Admin: 12/30/17 21:51 Dose: 0.5 mg Epoetin Mario Alberto (Procrit) 8,000 unit IV TTS [facility] Last Admin: 01/01/18 12:52 Dose: 8,000 unit Famotidine (Pepcid) 20 mg PO DAILY [facility] Last Admin: 01/02/18 09:54 Dose: 20 mg Gabapentin (Neurontin) 100 mg PO BID [facility] Last Admin: 01/02/18 09:54 Dose: 100 mg Guaifenesin (Robitussin) 200 mg PO Q4H PRN PRN Reason: Cough and congestion Heparin Sodium (Porcine) (Heparin) 3,700 units IV TTS [facility] Last Admin: 01/01/18 14:11 Dose: 3,700 units Hydralazine HCl (Apresoline) 25 mg PO Q8 PRN PRN Reason: Other Insulin Human Regular (Novolin R) 0 unit SC [facility]; Protocol Last Admin: 01/02/18 07:46 Dose: Not Given Lactulose (Generlac) 10 gm [place] DAILY [facility] Last Admin: 01/01/18 11:41 Dose: Not Given Metoprolol Succinate (Toprol Xl) 25 mg PO DAILY [facility] Last Admin: 01/02/18 09:54 Dose: 25 mg Mirtazapine (Remeron) 15 mg PO HS [facility] Last Admin: 01/01/18 21:35 Dose: 15 mg Oxycodone/Acetaminophen (Percocet 5/325 Mg Tab) 1 tab PO Q4H PRN PRN Reason: Pain, moderate (4-7) Stop: 01/02/18 20:44 Last Admin: 01/02/18 05:13 Dose: 1 tab Rosuvastatin Calcium (Crestor) 2.5 mg PO DAILY@2200 [facility] Last Admin: 01/01/18 21:35 Dose: 2.5 mg Senna/Docusate Sodium (Senokot S 50 Mg-8.6 Mg) 1 tab PO HS [facility] Last Admin: 01/01/18 21:35 Dose: 1 tab Sevelamer Carbonate (Renvela) 2,400 mg PO TID [facility] Last Admin: 01/02/18 09:54 Dose: 2,400 mg Vitamin B Complex/Vit C/Folic Acid (Nephro-Padma) 1 tab PO DAILY [facility] Last Admin: 01/02/18 09:54 Dose: 1 tab Zolpidem Tartrate (Ambien) 5 mg PO HS PRN PRN Reason: Insomnia Last Admin: 01/01/18 21:35 Dose: 5 mg - Labs Labs: 01/01/18 03:49 01/01/18 03:48 PT 12.5 SECONDS (9.7-12.2) H 12/30/17 18:25 INR 1.1 12/30/17 18:25 APTT 173 SECONDS (21-34) H* D 01/01/18 08:19
[2018-01-02] MEDS: Lactulose 10 gm/15 ml (Rectal Use) PR SCH (14:57)
[2018-01-02] MEDS ORDERED: Aluminum Hydroxide/Magnesium Hydroxide Susp (30 mL) PO ONE (15:18)
--- NOTE | 2018-01-02 21:26 | PN ---
DATE: 01/02/2018 SUBJECTIVE: The patient was noted to have 4 beats run of nonsustained ventricular tachycardia while on evaluation yesterday. On the monitor she is in sinus rhythm with occasional PVCs. The patient denies any chest pain. The patient has no syncope. PHYSICAL EXAMINATION: VITAL SIGNS: Blood pressure 94/69, heart rate 94, temperature 98.4, respirations 20. HEENT: Pale conjunctivae. CHEST: Minimal rhonchi. HEART: S1, S2 regular. ABDOMEN: Soft. EXTREMITIES: Trace leg edema. ASSESSMENT: 1. Right lower lobe branch pulmonary embolism. 2. End-stage renal disease, on hemodialysis. 3. Mild anemia. 4. Short run of nonsustained ventricular tachycardia. 5. History of supraventricular tachycardia recently. RECOMMENDATIONS: I will continue hydralazine 25 mg every 8 hours, amoxicillin 500 mg orally daily, intravenous heparin 3700 units, TTS, Toprol XL 25 mg once a day, Crestor 2.5 mg once a day, and Eliquis is 5 mg twice a day. The patient's magnesium and potassium level yesterday were within normal limits. Conservative medical approach is recommended. Benitez Hunter MD
[2018-01-02] MEDS: Rosuvastatin Calcium 2.5 mg Tab PO SCH (21:54)
[2018-01-02] MEDS: Docusate-Senna 50 mg-8.6 mg Tab PO SCH (21:54)
--- NOTE | 2018-01-02 22:43 | CP.PCM.PN ---
Subjective - Subjective Subjective: dictated Objective - Vital Signs/Intake and Output Vital Signs (last 24 hours): Temp Pulse Resp BP Pulse Ox 99.4 F 84 20 125/66 95 01/02/18 16:30 01/02/18 16:30 01/02/18 16:30 01/02/18 16:30 01/02/18 16:30 Intake and Output: 01/02/18 01/03/18 18:59 06:59 Intake Total 500 Balance 500 - Medications Medications: Current Medications Acetaminophen (Tylenol 325mg Tab) 650 mg PO Q6 PRN PRN Reason: toothache Last Admin: 01/01/18 12:50 Dose: 650 mg Allopurinol (Zyloprim) 100 mg PO DAILY [facility] Last Admin: 01/02/18 09:54 Dose: 100 mg Amoxicillin (Amoxil 500 Mg Cap) 500 mg PO Q24H [facility]; Protocol Last Admin: 01/02/18 08:17 Dose: 500 mg Apixaban (Eliquis) 5 mg PO BID [facility] Last Admin: 01/02/18 17:52 Dose: 5 mg Clonazepam (Klonopin) 0.5 mg PO BID PRN PRN Reason: Anxiety Last Admin: 12/30/17 21:51 Dose: 0.5 mg Epoetin Mario Alberto (Procrit) 8,000 unit IV TTS [facility] Last Admin: 01/01/18 12:52 Dose: 8,000 unit Famotidine (Pepcid) 20 mg PO DAILY [facility] Last Admin: 01/02/18 09:54 Dose: 20 mg Gabapentin (Neurontin) 100 mg PO BID [facility] Last Admin: 01/02/18 17:52 Dose: 100 mg Guaifenesin (Robitussin) 200 mg PO Q4H PRN PRN Reason: Cough and congestion Heparin Sodium (Porcine) (Heparin) 3,700 units IV TTS [facility] Last Admin: 01/01/18 14:11 Dose: 3,700 units Hydralazine HCl (Apresoline) 25 mg PO Q8 PRN PRN Reason: Other Insulin Human Regular (Novolin R) 0 unit SC ACHS [facility]; Protocol Last Admin: 01/02/18 21:51 Dose: Not Given Lactulose (Generlac) 10 gm [place] DAILY [facility] Last Admin: 01/02/18 14:57 Dose: Not Given Metoprolol Succinate (Toprol Xl) 25 mg PO DAILY [facility] Last Admin: 01/02/18 09:54 Dose: 25 mg Mirtazapine (Remeron) 15 mg PO HS [facility] Last Admin: 01/02/18 21:54 Dose: 15 mg Rosuvastatin Calcium (Crestor) 2.5 mg PO DAILY@2200 [facility] Last Admin: 01/02/18 21:54 Dose: 2.5 mg Senna/Docusate Sodium (Senokot S 50 Mg-8.6 Mg) 1 tab PO HS [facility] Last Admin: 01/02/18 21:54 Dose: 1 tab Sevelamer Carbonate (Renvela) 2,400 mg PO TID [facility] Last Admin: 01/02/18 17:52 Dose: 2,400 mg Vitamin B Complex/Vit C/Folic Acid (Nephro-Padma) 1 tab PO DAILY [facility] Last Admin: 01/02/18 09:54 Dose: 1 tab Zolpidem Tartrate (Ambien) 5 mg PO HS PRN PRN Reason: Insomnia Last Admin: 01/01/18 21:35 Dose: 5 mg - Labs Labs: 01/01/18 03:49 01/01/18 03:48 PT 12.5 SECONDS (9.7-12.2) H 12/30/17 18:25 INR 1.1 12/30/17 18:25 APTT 173 SECONDS (21-34) H* D 01/01/18 08:19
[2018-01-03] MEDS: (Novolin R) Insulin Human Regular 100 units/ml vial SC SCH ×4 (07:30→22:02)
[2018-01-03] MEDS: EPOETIN ALFA 4,000 UNIT/ML ML Dialysis IV SCH (12:37)
[2018-01-03 13:38] VITALS: RESP 20
[2018-01-03] MEDS: Multivitamin Vitamin B Complex (Nephro-Vite) Tab PO SCH (13:39)
[2018-01-03] MEDS: Lactulose 10 gm/15 ml (Rectal Use) PR SCH (13:41)
[2018-01-03] MEDS: Metoprolol Succinate 25 mg XL Tab PO SCH (13:48)
--- NOTE | 2018-01-03 14:55 | CP.PCM.PN ---
Subjective - Date & Time of Evaluation Date of Evaluation: 01/03/18 Time of Evaluation: 09:30 - Subjective Subjective: Nephrology Consultation Note: Assessment: Stable acute PE and pneumonia with pulmonary congestion diastolic CHF and ? 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 on JOHNATHAN with dialysis Continue with phos binders bp stable Dose meds/antibiotics (if needed) for ESRD status. Avoid fleets enema/magnesium based laxatives. S: seen on dialysis Physical Examination: General Appearance: comfortable, in no acute respiratory distress, co-operative . obese Vitals reviewed and noted as below Head; Atraumatic, normocephalic ENT: no ulcers no thrush. Tongue is midline. Oropharynx: no rash or ulcers. EYES: Pupils are equal, round and reactive to light accommodation. Eye muscles and extraocular movement intact. Sclera is anicteric. Neck; supple no lymphadenopathy, no thyromegaly or bruit Lungs: Normal respiratory rate/effort. Breath sounds bilateral decreased at bases Heart: normal rate. s1s2 normal. No rub or gallop. Extremities: no edema. No varicose veins. chronic hyperpigmentation venous stasis changes + Neurological: Patient is alert awake oriented, follow commands. no focal deified Skin: Warm and dry. Normal turgor. No rash. Palpitation: Normal elasticity for age Abdomen: Abdomen is soft. Bowel sounds +. There is no abdominal tenderness, no guarding/rigidity or organomegaly Psych: limited insight. flat affect MSK: no joint tenderness or swelling. Digits and nails normal, no deformity : kidney or bladder not palpable Access: PC and left AVF maturing Objective - Vital Signs/Intake and Output Vital Signs (last 24 hours): Temp Pulse Resp BP Pulse Ox 98 F 96 H 20 107/70 96 01/03/18 13:37 01/03/18 13:37 01/03/18 13:37 01/03/18 13:37 01/03/18 13:37 Intake and Output: 01/03/18 01/03/18 06:59 18:59 Intake Total 620 Balance 620 - Medications Medications: Current Medications Acetaminophen (Tylenol 325mg Tab) 650 mg PO Q6 PRN PRN Reason: toothache Last Admin: 01/03/18 13:43 Dose: 650 mg Allopurinol (Zyloprim) 100 mg PO DAILY [facility] Last Admin: 01/03/18 13:39 Dose: 100 mg Amoxicillin (Amoxil 500 Mg Cap) 500 mg PO Q24H [facility]; Protocol Last Admin: 01/03/18 06:16 Dose: 500 mg Apixaban (Eliquis) 5 mg PO BID [facility] Last Admin: 01/03/18 09:00 Dose: Not Given Clonazepam (Klonopin) 0.5 mg PO BID PRN PRN Reason: Anxiety Last Admin: 12/30/17 21:51 Dose: 0.5 mg Epoetin Mario Alberto (Procrit) 8,000 unit IV TTS [facility] Last Admin: 01/03/18 12:37 Dose: 8,000 unit Famotidine (Pepcid) 20 mg PO DAILY [facility] Last Admin: 01/03/18 13:39 Dose: 20 mg Gabapentin (Neurontin) 100 mg PO BID [facility] Last Admin: 01/03/18 09:01 Dose: Not Given Guaifenesin (Robitussin) 200 mg PO Q4H PRN PRN Reason: Cough and congestion Heparin Sodium (Porcine) (Heparin) 3,700 units IV TTS [facility] Last Admin: 01/03/18 12:39 Dose: 3,700 units Hydralazine HCl (Apresoline) 25 mg PO Q8 PRN PRN Reason: Other Insulin Human Regular (Novolin R) 0 unit SC [facility]; Protocol Last Admin: 01/03/18 12:00 Dose: Not Given Lactulose (Generlac) 10 gm [place] DAILY [facility] Last Admin: 01/03/18 13:41 Dose: Not Given Metoprolol Succinate (Toprol Xl) 25 mg PO DAILY [facility] Last Admin: 01/03/18 13:48 Dose: Not Given Mirtazapine (Remeron) 15 mg PO HS [facility] Last Admin: 01/02/18 21:54 Dose: 15 mg Rosuvastatin Calcium (Crestor) 2.5 mg PO DAILY@2200 [facility] Last Admin: 01/02/18 21:54 Dose: 2.5 mg Senna/Docusate Sodium (Senokot S 50 Mg-8.6 Mg) 1 tab PO HS [facility] Last Admin: 01/02/18 21:54 Dose: 1 tab Sevelamer Carbonate (Renvela) 2,400 mg PO TID [facility] Last Admin: 01/03/18 13:41 Dose: Not Given Vitamin B Complex/Vit C/Folic Acid (Nephro-Padma) 1 tab PO DAILY [facility] Last Admin: 01/03/18 13:39 Dose: 1 tab Zolpidem Tartrate (Ambien) 5 mg PO HS PRN PRN Reason: Insomnia Last Admin: 01/01/18 21:35 Dose: 5 mg - Labs Labs: 01/01/18 03:49 01/01/18 03:48 PT 12.5 SECONDS (9.7-12.2) H 12/30/17 18:25 INR 1.1 12/30/17 18:25 APTT 173 SECONDS (21-34) H* D 01/01/18 08:19
[2018-01-03] MEDS ORDERED: Alum-Mag Hydrox-Simethicone Susp (30 mL) PO STA (15:10)
--- NOTE | 2018-01-03 17:03 | CP.PCM.PN ---
Subjective - Date & Time of Evaluation Date of Evaluation: 01/03/18 Time of Evaluation: 11:00 - Subjective Subjective: Alert and orientedx3, no sob or chest pains after HD today. Objective - Vital Signs/Intake and Output Vital Signs (last 24 hours): Temp Pulse Resp BP Pulse Ox 98.5 F 92 H 20 96/63 L 96 01/03/18 15:00 01/03/18 15:00 01/03/18 15:00 01/03/18 15:00 01/03/18 15:00 Intake and Output: 01/03/18 01/03/18 06:59 18:59 Intake Total 620 Balance 620 - Medications Medications: Current Medications Acetaminophen (Tylenol 325mg Tab) 650 mg PO Q6 PRN PRN Reason: toothache Last Admin: 01/03/18 13:43 Dose: 650 mg Allopurinol (Zyloprim) 100 mg PO DAILY [facility] Last Admin: 01/03/18 13:39 Dose: 100 mg Amoxicillin (Amoxil 500 Mg Cap) 500 mg PO Q24H [facility]; Protocol Last Admin: 01/03/18 06:16 Dose: 500 mg Apixaban (Eliquis) 5 mg PO BID [facility] Last Admin: 01/03/18 09:00 Dose: Not Given Clonazepam (Klonopin) 0.5 mg PO BID PRN PRN Reason: Anxiety Last Admin: 12/30/17 21:51 Dose: 0.5 mg Epoetin Mario Alberto (Procrit) 8,000 unit IV TTS [facility] Last Admin: 01/03/18 12:37 Dose: 8,000 unit Famotidine (Pepcid) 20 mg PO DAILY [facility] Last Admin: 01/03/18 13:39 Dose: 20 mg Gabapentin (Neurontin) 100 mg PO BID [facility] Last Admin: 01/03/18 09:01 Dose: Not Given Guaifenesin (Robitussin) 200 mg PO Q4H PRN PRN Reason: Cough and congestion Heparin Sodium (Porcine) (Heparin) 3,700 units IV TTS [facility] Last Admin: 01/03/18 12:39 Dose: 3,700 units Hydralazine HCl (Apresoline) 25 mg PO Q8 PRN PRN Reason: Other Insulin Human Regular (Novolin R) 0 unit SC ACHS [facility]; Protocol Last Admin: 01/03/18 12:00 Dose: Not Given Lactulose (Generlac) 10 gm [place] DAILY [facility] Last Admin: 01/03/18 13:41 Dose: Not Given Metoprolol Succinate (Toprol Xl) 25 mg PO DAILY [facility] Last Admin: 01/03/18 13:48 Dose: Not Given Mirtazapine (Remeron) 15 mg PO HS [facility] Last Admin: 01/02/18 21:54 Dose: 15 mg Rosuvastatin Calcium (Crestor) 2.5 mg PO DAILY@2200 [facility] Last Admin: 01/02/18 21:54 Dose: 2.5 mg Senna/Docusate Sodium (Senokot S 50 Mg-8.6 Mg) 1 tab PO HS [facility] Last Admin: 01/02/18 21:54 Dose: 1 tab Sevelamer Carbonate (Renvela) 2,400 mg PO TID [facility] Last Admin: 01/03/18 13:41 Dose: Not Given Vitamin B Complex/Vit C/Folic Acid (Nephro-Padma) 1 tab PO DAILY [facility] Last Admin: 01/03/18 13:39 Dose: 1 tab Zolpidem Tartrate (Ambien) 5 mg PO HS PRN PRN Reason: Insomnia Last Admin: 01/01/18 21:35 Dose: 5 mg - Labs Labs: 01/01/18 03:49 01/01/18 03:48 PT 12.5 SECONDS (9.7-12.2) H 12/30/17 18:25 INR 1.1 12/30/17 18:25 APTT 173 SECONDS (21-34) H* D 01/01/18 08:19 Assessment and Plan - Assessment and Plan (Free Text) Assessment: 67 year old female on hemodialysis, admitted with shortness of breath and tachycardia, seen and examined after HD today. Alert and oriented x3, no acute distress but feels tired after the dialysis. Discussed with DR Fuentes, plan to discharge to [facility] in am for rehab.
--- NOTE | 2018-01-03 19:22 | PN ---
DATE: 01/03/2018 SUBJECTIVE: The patient is currently undergoing hemodialysis. She denies any chest pain or leg pain. PHYSICAL EXAMINATION: VITAL SIGNS: Blood pressure 107/70, heart rate 96, temperature 98, respirations 20. HEENT: Normocephalic. CHEST: Minimal rhonchi. HEART: S1, S2 regular. ABDOMEN: Soft. EXTREMITIES: Trace leg edema. LABORATORY DATA: Blood cultures is negative after three days. Preliminary report of venous Doppler of the lower extremities, no DVT. ASSESSMENT: 1. Small right lower pulmonary artery branch pulmonary embolism. 2. Nonsustained ventricular tachycardia. 3. Endstage renal disease on hemodialysis. 4. Mild anemia. 5. History of recent supraventricular tachycardia. RECOMMENDATIONS: Continue hydralazine 25 mg every 8 hours, Eliquis 5 mg twice a day, heparin 3700 units intravenously TTS, Toprol XL 25 mg daily. Benitez Hunter MD
--- NOTE | 2018-01-03 21:47 | CP.PCM.PN ---
Subjective - Subjective Subjective: dictated Objective - Vital Signs/Intake and Output Vital Signs (last 24 hours): Temp Pulse Resp BP Pulse Ox 98.5 F 92 H 20 96/63 L 96 01/03/18 15:00 01/03/18 17:14 01/03/18 15:00 01/03/18 15:00 01/03/18 15:00 - Medications Medications: Current Medications Acetaminophen (Tylenol 325mg Tab) 650 mg PO Q6 PRN PRN Reason: toothache Last Admin: 01/03/18 13:43 Dose: 650 mg Allopurinol (Zyloprim) 100 mg PO DAILY [facility] Last Admin: 01/03/18 13:39 Dose: 100 mg Amoxicillin (Amoxil 500 Mg Cap) 500 mg PO Q24H [facility]; Protocol Last Admin: 01/03/18 06:16 Dose: 500 mg Apixaban (Eliquis) 5 mg PO BID [facility] Last Admin: 01/03/18 18:08 Dose: 5 mg Clonazepam (Klonopin) 0.5 mg PO BID PRN PRN Reason: Anxiety Last Admin: 12/30/17 21:51 Dose: 0.5 mg Epoetin Mario Alberto (Procrit) 8,000 unit IV TTS [facility] Last Admin: 01/03/18 12:37 Dose: 8,000 unit Famotidine (Pepcid) 20 mg PO DAILY [facility] Last Admin: 01/03/18 13:39 Dose: 20 mg Gabapentin (Neurontin) 100 mg PO BID [facility] Last Admin: 01/03/18 18:08 Dose: 100 mg Guaifenesin (Robitussin) 200 mg PO Q4H PRN PRN Reason: Cough and congestion Heparin Sodium (Porcine) (Heparin) 3,700 units IV TTS [facility] Last Admin: 01/03/18 12:39 Dose: 3,700 units Hydralazine HCl (Apresoline) 25 mg PO Q8 PRN PRN Reason: Other Insulin Human Regular (Novolin R) 0 unit SC [facility]; Protocol Last Admin: 01/03/18 17:21 Dose: Not Given Lactulose (Generlac) 10 gm [place] DAILY [facility] Last Admin: 01/03/18 13:41 Dose: Not Given Metoprolol Succinate (Toprol Xl) 25 mg PO DAILY [facility] Last Admin: 01/03/18 13:48 Dose: Not Given Mirtazapine (Remeron) 15 mg PO HS [facility] Last Admin: 01/02/18 21:54 Dose: 15 mg Rosuvastatin Calcium (Crestor) 2.5 mg PO DAILY@2200 [facility] Last Admin: 01/02/18 21:54 Dose: 2.5 mg Senna/Docusate Sodium (Senokot S 50 Mg-8.6 Mg) 1 tab PO HS [facility] Last Admin: 01/02/18 21:54 Dose: 1 tab Sevelamer Carbonate (Renvela) 2,400 mg PO TID [facility] Last Admin: 01/03/18 18:11 Dose: 2,400 mg Vitamin B Complex/Vit C/Folic Acid (Nephro-Padma) 1 tab PO DAILY [facility] Last Admin: 01/03/18 13:39 Dose: 1 tab Zolpidem Tartrate (Ambien) 5 mg PO HS PRN PRN Reason: Insomnia Last Admin: 01/01/18 21:35 Dose: 5 mg - Labs Labs: 01/01/18 03:49 01/01/18 03:48 PT 12.5 SECONDS (9.7-12.2) H 12/30/17 18:25 INR 1.1 12/30/17 18:25 APTT 173 SECONDS (21-34) H* D 01/01/18 08:19
[2018-01-03] MEDS: Rosuvastatin Calcium 2.5 mg Tab PO SCH (22:00)
[2018-01-03] MEDS: Docusate-Senna 50 mg-8.6 mg Tab PO SCH (22:01)
[2018-01-04] MEDS: (Novolin R) Insulin Human Regular 100 units/ml vial SC SCH (07:52)
--- NOTE | 2018-01-04 08:22 | PN ---
DATE: 01/02/2018 SUBJECTIVE: The patient feels better. She denies any chest pain, shortness of breath. PHYSICAL EXAMINATION: VITAL SIGNS: Blood pressure 125/66, pulse 84, respiratory rate 20, temperature 99.4. LUNGS: Clear. CVS: S1, S2 regular. No heave noted. ABDOMEN: Soft. Nontender. Bowel sounds are positive. [employer]: Awake, alert, oriented x3. ASSESSMENT: 1. Pulmonary embolism. 2. Chronic kidney disease, on hemodialysis. 3. Diabetes. 4. Hypertension. PLAN: Monitor the patient. Manuel Fuentes MD
[2018-01-04 08:44] VITALS: BP 102/63; PULSE 94; TEMP 98; O2SAT 97
[2018-01-04] MEDS: Multivitamin Vitamin B Complex (Nephro-Vite) Tab PO SCH (09:15)
[2018-01-04] MEDS: Metoprolol Succinate 25 mg XL Tab PO SCH (09:16)
--- NOTE | 2018-01-04 09:45 | PN ---
DATE: 01/03/2018 SUBJECTIVE: The patient is for transfer to [facility] tomorrow. She is feeling better. Blood pressure is stable. No shortness of breath. She has poor sleep. PHYSICAL EXAMINATION: VITAL SIGNS: Blood pressure 96/63, pulse 92, respiratory rate 20, and temperature 98.5. LUNGS: Clear. CVS: S1, S2 regular. ABDOMEN: Soft. ASSESSMENT: 1. Pulmonary embolism, on Eliquis. 2. Type 2 diabetes. 3. Morbid obesity. 4. End-stage renal disease, on hemodialysis. PLAN: Continue current medication. Monitor the patient. Manuel Fuentes MD
--- NOTE | 2018-01-04 13:10 | CP.PCM.PN ---
Subjective - Date & Time of Evaluation Date of Evaluation: 01/04/18 Time of Evaluation: 09:00 - Subjective Subjective: Assessment: Stable acute PE and pneumonia with pulmonary congestion diastolic CHF and ? Rt atrial myxoma Diabetic chronic Kidney Disease (E11.22) Hypertensive Chronic Kidney Disease (I12.0) End stage renal disease (N18.6) dependence on hemodialysis (Z99.2) (TTS) via PC Anemia (D64.9), Hyperphosphatemia (E83.39), Secondary Hyperparathyroidism (E21.1), HTN (I12.0), Morbid obesity Plan: hd tts PRBC as needed for anemia. on JOHNATHAN with dialysis Continue with phos binders bp stable Dose meds/antibiotics (if needed) for ESRD status. Avoid fleets enema/magnesium based laxatives. S: seen on dialysis Physical Examination: General Appearance: comfortable, in no acute respiratory distress, co-operative . obese Vitals reviewed and noted as below Head; Atraumatic, normocephalic ENT: no ulcers no thrush. Tongue is midline. Oropharynx: no rash or ulcers. EYES: Pupils are equal, round and reactive to light accommodation. Eye muscles and extraocular movement intact. Sclera is anicteric. Neck; supple no lymphadenopathy, no thyromegaly or bruit Lungs: Normal respiratory rate/effort. Breath sounds bilateral decreased at bases Heart: normal rate. s1s2 normal. No rub or gallop. Extremities: no edema. No varicose veins. chronic hyperpigmentation venous stasis changes + Neurological: Patient is alert awake oriented, follow commands. no focal deified Skin: Warm and dry. Normal turgor. No rash. Palpitation: Normal elasticity for age Abdomen: Abdomen is soft. Bowel sounds +. There is no abdominal tenderness, no guarding/rigidity or organomegaly Psych: limited insight. flat affect MSK: no joint tenderness or swelling. Digits and nails normal, no deformity : kidney or bladder not palpable Access: PC and left AVF maturing Objective - Vital Signs/Intake and Output Vital Signs (last 24 hours): Temp Pulse Resp BP Pulse Ox 98.0 F 94 H 20 102/63 97 01/04/18 08:00 01/04/18 08:00 01/04/18 08:00 01/04/18 08:00 01/04/18 08:00 Intake and Output: 01/04/18 01/04/18 06:59 18:59 Intake Total 730 Balance 730 - Labs Labs: 01/01/18 03:49 01/01/18 03:48 PT 12.5 SECONDS (9.7-12.2) H 12/30/17 18:25 INR 1.1 12/30/17 18:25 APTT 173 SECONDS (21-34) H* D 01/01/18 08:19
--- NOTE | 2018-01-04 22:20 | CP.PCM.DIS ---
Provider - Provider Date of Admission: 12/31/17 18:14 Attending physician: Manuel Fuentes MD Hospital Course - Lab Results Lab Results: Micro Results 12/31/17 07:31 Blood Blood Culture - Preliminary NO GROWTH AFTER 4 DAYS 12/31/17 07:31 Blood Blood Culture - Preliminary NO GROWTH AFTER 4 DAYS Most Recent Lab Values WBC 8.7 K/uL (4.8-10.8) 01/01/18 03:49 RBC 3.31 Mil/uL (3.80-5.20) L 01/01/18 03:49 Hgb 9.4 g/dL (11.0-16.0) L 01/01/18 03:49 Hct 29.2 % (34.0-47.0) L 01/01/18 03:49 MCV 88.3 fL (81.0-99.0) 01/01/18 03:49 MCH 28.5 pg (27.0-31.0) 01/01/18 03:49 MCHC 32.3 g/dL (33.0-37.0) L 01/01/18 03:49 RDW 20.0 % (11.5-14.5) H 01/01/18 03:49 Plt Count 147 K/uL (130-400) 01/01/18 03:49 MPV 9.0 fL (7.2-11.7) 01/01/18 03:49 Neut % (Auto) 75.2 % (50.0-75.0) H 12/30/17 18:25 Lymph % (Auto) 13.5 % (20.0-40.0) L 12/30/17 18:25 [place] % (Auto) 8.0 % (0.0-10.0) 12/30/17 18:25 Eos % (Auto) 1.6 % (0.0-4.0) 12/30/17 18:25 Baso % (Auto) 1.7 % (0.0-2.0) 12/30/17 18:25 Neut # (Auto) 9.3 K/uL (1.8-7.0) H 12/30/17 18:25 Lymph # (Auto) 1.7 K/uL (1.0-4.3) 12/30/17 18:25 [place] # (Auto) 1.0 K/uL (0.0-0.8) H 12/30/17 18:25 Eos # (Auto) 0.2 K/uL (0.0-0.7) 12/30/17 18:25 Baso # (Auto) 0.2 K/uL (0.0-0.2) 12/30/17 18:25 PT 12.5 SECONDS (9.7-12.2) H 12/30/17 18:25 INR 1.1 12/30/17 18:25 APTT 173 SECONDS (21-34) H* D 01/01/18 08:19 D-Dimer, Quantitative 1536 ng/mlDDU (0-243) H 12/31/17 12:28 Sodium 138 mmol/L (132-148) 01/01/18 03:48 Potassium 4.2 mmol/L (3.6-5.2) 01/01/18 03:48 Chloride 95 mmol/L (98-107) L 01/01/18 03:48 Carbon Dioxide 32 mmol/L (22-30) H 01/01/18 03:48 Anion Gap 15 (10-20) 01/01/18 03:48 BUN 32 mg/dL (7-17) H 01/01/18 03:48 Creatinine 9.5 mg/dL (0.7-1.2) H* D 01/01/18 03:48 Est GFR ( Amer) 5 01/01/18 03:48 Est GFR (Non-Af Amer) 4 01/01/18 03:48 POC Glucose (mg/dL) 87 mg/dL (65-110) 01/02/18 21:19 Random Glucose 91 mg/dL (65-105) 01/01/18 03:48 Calcium 9.5 mg/dl (8.6-10.4) 01/01/18 03:48 Phosphorus 3.8 mg/dL (2.5-4.5) 01/01/18 17:55 Magnesium 2.1 mg/dL (1.6-2.3) 01/01/18 17:55 Total Bilirubin 0.9 mg/dL (0.2-1.3) 12/30/17 18:25 AST 22 U/L (14-36) 12/30/17 18:25 ALT 24 U/L (9-52) 12/30/17 18:25 Alkaline Phosphatase 160 U/L (38-126) H 12/30/17 18:25 Total Creatine Kinase 38 U/L (30-135) 12/31/17 14:26 CK-MB (Mass) < 0.22 ng/mL (0.0-3.38) 12/31/17 14:26 Troponin I < 0.0120 ng/mL (0.00-0.120) 12/31/17 14:26 NT-Pro-B Natriuret Pep 406 pg/mL (0-900) 12/30/17 18:25 Total Protein 8.4 g/dL (6.3-8.3) H 12/30/17 18:25 Albumin 4.3 g/dL (3.5-5.0) 12/30/17 18:25 Globulin 4.1 gm/dL (2.2-3.9) H 12/30/17 18:25 Albumin/Globulin Ratio 1.0 (1.0-2.1) 12/30/17 18:25 Discharge Plan - Follow Up Plan Condition: FAIR Disposition: REHAB FACILITY/REHAB UNIT Instructions: Shortness of Breath (Dyspnea) (DC), Pulmonary Embolism (Blood Clot in the Lungs) (DC) Referrals: Sea Quintero MD [Staff Provider] - Benitez Hunter MD [Staff Provider] - Manuel Fuentes MD [Staff Provider] -
--- NOTE | 2018-01-05 08:27 | CARD ---
APPROVED REPORT Date of service: 12/31/2017 EKG Measurement Heart [id number] [place] [id number] [id number] <Conclusion> Sinus tachycardia with occasional premature ventricular complexes Cannot rule out Anterior infarct, age undetermined Abnormal ECG
--- NOTE | 2018-01-05 10:02 | VASCLAB ---
Date of service: 01/02/2018 PROCEDURE: Lower Extremity Venous Duplex Exam. HISTORY: r/o dvt PRIORS: None. TECHNIQUE: Bilateral common femoral, femoral, popliteal and posterior tibial, peroneal and great saphenous veins were evaluated. Flow was assessed with color Doppler, compressibility, assessment of phasic flow and augmentation response. Report prepared by Herve Jarrett, BS, RVT FINDINGS: RIGHT: 1. Common Femoral Vein: 1.1. Compressibility - Fully compressible: Thrombus - None : Flow - Phasic: Augmentation -Normal: Reflux - None. 2. Femoral Vein: 2.1. Compressibility - Fully compressible: Thrombus - None : Flow - Phasic: Augmentation -Normal: Reflux - None. 3. Popliteal Vein: 3.1. Compressibility - Fully compressible: Thrombus - None : Flow - Phasic: Augmentation -Normal: Reflux - None. 4. Posterior Tibial Vein: 4.1. Compressibility - Fully compressible: Thrombus - None: Flow - Phasic: Augmentation -Normal: Reflux - None. 5. Peroneal Vein: 5.1. Compressibility - Fully compressible: Thrombus - None: Flow - Phasic: Augmentation -Normal: Reflux - None. 6. Great Saphenous Vein: 6.1. Compressibility - Fully compressible: Thrombus - None: Flow - Phasic: Augmentation - Normal: Reflux - None. LEFT: 1. Common Femoral Vein: 1.1. Compressibility - Fully compressible: Thrombus - None: Flow - Phasic: Augmentation -Normal: Reflux - None. 2. Femoral Vein: 2.1. Compressibility - Fully compressible: Thrombus - None: Flow - Phasic: Augmentation -Normal: Reflux - None. 3. Popliteal Vein: 3.1. Compressibility - Fully compressible: Thrombus - None : Flow - Phasic: Augmentation -Normal: Reflux - None. 4. Posterior Tibial Vein: 4.1. Compressibility - Fully compressible: Thrombus - None: Flow - Phasic: Augmentation -Normal: Reflux - None. 5. Peroneal Vein: 5.1. Compressibility - Fully compressible: Thrombus - None: Flow - Phasic: Augmentation -Normal: Reflux - None. 6. Great Saphenous Vein: 6.1. Compressibility - Fully compressible: Thrombus - None: Flow - Phasic: Augmentation - Normal: Reflux - None. OTHER FINDINGS: Right: None significant. Left: Multiple anechoic vascularized mass noted the left groin area. IMPRESSION: Right: No evidence of deep or superficial vein thrombosis of the right lower extremity. Normal valve function noted of the right side. Left: No evidence of deep or superficial vein thrombosis of the left lower extremity. Normal valve function noted of the left side.
--- NOTE | 2018-01-05 23:04 | DS ---
DISCHARGE DIAGNOSES: Pulmonary embolism; hypertension; chronic kidney disease, on hemodialysis; diabetes; anxiety; and insomnia. HOSPITAL COURSE: This is 67-year-old female, admitted with palpitations, weakness, and generalized feeling of sickness. She was found to have pulmonary embolism, and the patient was started on heparin and switched over to Eliquis, and she is being discharged to [facility] for physical therapy and rehab. During the course of hospitalization, she was seen by Nephrology and hemodialysis was done. She was seen by Cardiology. VQ scan and CT angio of the chest were done, and the patient was diagnosed with pulmonary embolism. She is being discharged. LABORATORY DATA: WBC is 8.7, hemoglobin is 9.4, hematocrit 29.2, and platelets 147. Sodium 138, potassium 4.2, chloride 95, bicarbonate 32, BUN 32, and creatinine 9.5. CONDITION UPON DISCHARGE: Stable. Manuel Fuentes MD
== END 2018-01-04 10:15 | DRG 175 ==
LOC: C.ER 17:03 → C.9E 19:13 → C.5S 19:53 → OBSVTOIN 12-31 18:14 → C.5S 01-01 04:19
PROVIDERS: ADMIT Internal Medicine; ATTEND Internal Medicine
PROC: 5A1D70Z Performance of Urinary Filtration, Intermittent, Less than 6 Hours Per Day (ICD-10-PCS; 2018-01-01)
PROC: 5A1D70Z Performance of Urinary Filtration, Intermittent, Less than 6 Hours Per Day (ICD-10-PCS; principal; 2018-01-03)
DX: I26.99 Other pulmonary embolism without acute cor pulmonale (principal); N18.6 End stage renal disease; J18.9 Pneumonia, unspecified organism; I13.2 Hypertensive heart and chronic kidney disease with heart failure and with stage 5 chronic kidney disease, or end stage renal disease; I47.2 Ventricular tachycardia; I50.32 Chronic diastolic (congestive) heart failure; N25.81 Secondary hyperparathyroidism of renal origin; E66.01 Morbid (severe) obesity due to excess calories; E78.5 Hyperlipidemia, unspecified; F41.9 Anxiety disorder, unspecified; G47.00 Insomnia, unspecified; E83.39 Other disorders of phosphorus metabolism; I49.3 Ventricular premature depolarization; D15.1 Benign neoplasm of heart; D64.9 Anemia, unspecified; E11.21 Type 2 diabetes mellitus with diabetic nephropathy; E11.22 Type 2 diabetes mellitus with diabetic chronic kidney disease; K08.89 Other specified disorders of teeth and supporting structures; Z87.891 Personal history of nicotine dependence; Z99.2 Dependence on renal dialysis; Z68.37 Body mass index [BMI] 37.0-37.9, adult